=== PATIENT | female | born 1945 | race Caucasian/White ===

== ENCOUNTER 2018-11-14 11:21 | Emergency (ER) | payer MEDICARE, OTHER ==
[~2018-11-14] VITALS: Ht 162.6 cm; Wt 72.6 kg
--- OUTSIDE RECORDS SUMMARY | ~2018-11-14 | XMS | Encounter Summary ---
Demographics + + + | Address | [address] | | | [place] [address] | + + + | Home Phone | | + + + | Preferred Language | Unknown | + + + | Marital Status | Single | + + + | Protestant Affiliation | Unknown | + + + | Race | Unknown | + + + | Ethnic Group | Unknown | + + + Author + + + | Author | Frank Fanvibe | + + + | Organization | [facility] | + + + | Address | Unknown | + + + | Phone | Unavailable | + + + Support + + +---------+ + | Name | Relationship | Address | Phone | + + +---------+ + | Kami Boyce | ECON | Unknown | | | (Jessica) | | | | + + +---------+ + Care Team Providers + +------+ + | Care Sports Commentator Name | Role | Phone | + +------+ + | Sean Daquan Castaneda | PCP | | + +------+ + Encounter Details +--------+ + + + + | Date | Type | Department | Care Team | Description | +--------+ + + + + | 08/16/ | Orders Only | [facility] | Yanni Wall | Cardiomyopathy, | | 2019 | | Cardiology [place] | [address] | ischemic | | | | [address] | [address] | | | | | [facility] [address] | [place] [address] | | | | | [place] [address] | [phone] | | | | | [phone] | | | +--------+ + + + + Social History + + + +--------+------+ | Tobacco Use | Types | Packs/Day | Years | Date | | | | | Used | | + + + +--------+------+ | Former Smoker | Cigarettes | 1 | 40 | | + + + +--------+------+ + +---+---+---+ | Smokeless Tobacco: | | | | | Never Used | | | | + +---+---+---+ + + | Comments: quit 01/01/11 | + + + + +---------+ + | Alcohol Use | Drinks/We | oz/Week | Comments | | | ek | | | + + +---------+ + | Yes | 3-4 | 1.8 - | wine | | | Standard | 2.4 | | | | drinks or | | | | | | | | | | equivalen | | | | | t | | | + + +---------+ + + + + | Sex Assigned at | Date Recorded | | | | + + + | Not on file | | + + + as of this encounter Plan of Treatment +--------+ + + + + | Date | Type | Specialty | Care Team | Description | +--------+ + + + + | 12/04/ | Documentati | Cardiology | | | | 2019 | on Only | | | | +--------+ + + + + | 01/08/ | Documentati | Cardiology | | | | 2019 | on Only | | | | +--------+ + + + + as of this encounter Visit Diagnoses + + | Diagnosis | + + | Cardiomyopathy, ischemic | + + | Other specified forms of chronic ischemic heart disease | + +"
--- OUTSIDE RECORDS SUMMARY | ~2018-11-14 | XMS | Encounter Summary ---
Demographics + + + | Address | [address] | | | [place] [address] | + + + | Home Phone [...] + + + | Author | Frank Viacor | + + + | Organization | [facility] [employer] | + + + | Address [...] Team Providers + +------+ + | Care Senior Marketing Data Analyst Name | Role | Phone | + +------+ + | Daquan Estrada | PCP | | + +------+ + Reason for Visit + + + | Reason | Comments | + + + | Follow-up | 3 month | + + + Encounter Details +--------+---------+ + + + | Date | Type | Department | Care Team | Description | +--------+---------+ + + + | 11/14/ | Office | [facility] | Zeyad Hernandez, | Coronary artery | | 2019 | Visit | Cardiology [place] | [address] | disease involving | | | | [address] | [address], | coronary bypass | | | | [address] | [place] [address] | graft of [place] | | | | [place] [address] | [phone] | heart without angina | | | | [phone] | | pectoris (Primary | | | | | | Dx); Ischemic | | | | | | cardiomyopathy; | | | | | | Chronic combined | | | | | | systolic and | | | | | | diastolic heart | | | | | | failure (HCC); S/P | | | | | | CABG (coronary | | | | | | artery bypass | | | | | | graft); AICD | | | | | | (automatic | | | | | | cardioverter/defibri | | | | | | llator) present | +--------+---------+ + + + Social History + + [...] + + + as of this encounter Last Filed Vital Signs + + + + | Vital Sign | Reading | Time Taken | + + + + | Blood Pressure | 112/64 | 11/14/2018 10:51 AM PDT | + + + + | Pulse | 76 | 11/14/2018 10:51 AM PDT | + + + + | Temperature | - | - | + + + + | Respiratory Rate | - | - | + + + + | Oxygen Saturation | 99% | 11/14/2018 10:51 AM PDT | + + + + | Inhaled Oxygen | - | - | | Concentration | | | + + + + | Weight | 76 kg (167 lb 9.6 | 11/14/2018 10:51 AM PDT | | | oz) | | + + + + | Height | 162.6 cm (5' 4") | 11/14/2018 10:51 AM PDT | + + + + | Body Mass Index | 28.77 | 11/14/2018 10:51 AM PDT | + + + + in this encounter Plan of Treatment +--------+ + + + + | Date | Type | Specialty | Care Team | Description | +--------+ + + + + | 12/04/ | Documentati | Cardiology | | | | 2018 | on Only | | | | +--------+ + + + + | 01/08/ | Documentati | Cardiology | | | | 2018 | on Only | | | | +--------+ + + + + as of this encounter Visit Diagnoses + + | Diagnosis | + + | 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
--- OUTSIDE RECORDS SUMMARY | ~2018-11-14 | XMS | Clinical Summary ---
Demographics + + + | Address | [address] | | | [place] [address] | + + + | Home Phone | | + + + | Preferred Language | Unknown | + + + | Marital Status | Single | + + + | Orthodoxy Affiliation | NRP | + + + | Race | White | + + + | Ethnic Group | Not or | + + + Author + + + | Author | [facility] | + + + | Organization | [facility] | + + + | Address | Unknown | + + + | Phone | Unavailable | + + + Support + + + + + | Name | Relationship | Address | Phone | + + + + + | Herber Greenberg | ECON | Unknown | | + + + + + | Siobhan Boyce | ECON | [address] | | | | | [place] | | | | | [address] | | + + + + + Care Team Providers + +------+ + | Care Gold Tooler Name | Role | Phone | + +------+ + | Gloria Morales MD | PP | Unavailable | + +------+ + Source Comments JOSE is fully live on both EpicCare Ambulatory and EpicCare InPatient[facility] Allergies + + + + + + | Active Allergy | Reactions | Severity | Noted | Comments | | | | | Date | | + + + + + + | Zolpidem Tartrate | Anxiety | | 03/01/20 | Pt does not | | | | | 13 | remember symptoms, | | | | | | but had a "bad | | | | | | reaction" | + + + + + + Medications + + + +---------+------+------+-------+ | Medication | Sig | Dispensed | Refills | Star | End | Statu | | | | | | t | Date | s | | | | | | Date | | | + + + +---------+------+------+-------+ | tiotropium 18 mcg | Inhale 18 mcg once | | 0 | | | Activ | | Inhalation capsule, | daily. | | | | | e | | w/inhalation device | | | | | | | + + + +---------+------+------+-------+ | aspirin 325 mg | Take 325 mg by mouth | | 0 | | | Activ | | Oral tablet | once daily. | | | | | e | + + + +---------+------+------+-------+ | spironolactone 25 | Take 12.5 mg by | | 0 | | | Activ | | mg Oral tablet | mouth once daily. | | | | | e | + + + +---------+------+------+-------+ | ferrous gluconate | Take 325 mg by mouth | | 0 | | | Activ | | 325 mg (36 mg iron) | once daily. | | | | | e | | Oral tablet | | | | | | | + + + +---------+------+------+-------+ | traZODone 50 mg | Take 50 mg by mouth | | 0 | | | Activ | | Oral tablet | once daily at | | | | | e | | | bedtime as needed. | | | | | | + + + +---------+------+------+-------+ | fluticasone 50 | Instill 2 sprays | | 0 | | | Activ | | mcg/actuation Nasal | into each nostril | | | | | e | | [place], | once daily. Shake | | | | | | | SuspensionIndication | well before each use | | | | | | | s: allergies | Indications: | | | | | | | | allergies | | | | | | + + + +---------+------+------+-------+ | telmisartan | Take 1/4 tablet by | | 0 | | | Activ | | (MICARDIS) 20 mg | mouth once daily | | | | | e | | Oral tablet | | | | | | | + + + +---------+------+------+-------+ | Cholecalciferol, | Take 5,000 Units by | | 0 | | | Activ | | Vitamin D3, (VITAMIN | mouth once daily. | | | | | e | | D3) 5,000 unit Oral | | | | | | | | tablet | | | | | | | + + + +---------+------+------+-------+ | levothyroxine 25 | Take 1 & 1/2 tablet | | 0 | | | Activ | | mcg Oral tablet | by mouth once daily | | | | | e | + + + +---------+------+------+-------+ | carvedilol 3.125 | Take 1/2 tablet by | | 0 | | | Activ | | mg Oral tablet | mouth twice daily. | | | | | e | | | Administer with | | | | | | | | food. | | | | | | + + + +---------+------+------+-------+ | clopidogrel 75 mg | Take 1 tablet by | 30 | 11 | 09/1 | | Activ | | Oral tablet | mouth once daily. | tablet | | 4/20 | | e | | | | | | 13 | | | + + + +---------+------+------+-------+ | furosemide 20 mg | Take 1 tablet by | 30 | 3 | 09/1 | | Activ | | Oral tablet | mouth once daily. | tablet | | 4/20 | | e | | | | | | 13 | | | + + + +---------+------+------+-------+ | nitroglycerin 0.4 | Place 1 tablet under | 25 | 1 | / | | Activ | | mg Sublingual | the tongue every | tablet | | /20 | | e | | tablet, sublingual | five minutes as | | | 13 | | | | | needed for chest | | | | | | | | pain. Do not crush | | | | | | | | and allow to | | | | | | | | dissolve. | | | | | | | | Administer every 5 | | | | | | | | minutes for a | | | | | | | | maximum of 3 doses | | | | | | | | in 15 minutes. | | | | | | + + + +---------+------+------+-------+ | atorvastatin 80 mg | Take 1 tablet by | 30 | 3 | 02/17 | | Activ | | Oral tablet | mouth once daily. | tablet | | 20 | | e | | | | | | 13 | | | + + + +---------+------+------+-------+ Active Problems + + + | Problem | Noted Date | + + + | NSTEMI (non-ST elevated myocardial infarction) | 03/01/2013 | + + + | Acute systolic heart failure | 03/01/2013 | + + + | Ischemic cardiomyopathy | 03/01/2013 | + + + | Unstable angina | 02/27/2013 | + + + Social History + + + +--------+ + | Tobacco Use | Types | Packs/Day | Years | Date | | | | | Used | | + + + +--------+ + | Former Smoker | Cigarettes | 1 | | Quit: 12/27/2010 | + + + +--------+ + + +------+---+---+ | Smokeless Tobacco: | Chew | | | | Current User | | | | + +------+---+---+ + + +---------+ + | Alcohol Use | Drinks/Week | oz/Week | Comments | + + +---------+ + | Yes | 1 Glasses of wine | 0.5 | not reglarly - with | | | | | company | + + +---------+ + + + + | Sex Assigned at | Date Recorded | | | | + + + | Not on file | | + + + + + + + | Job Start Date | Occupation | Industry | + + + + | Not on file | Not on file | Not on file | + + + + + + + + | Travel History | Travel Start | Travel End | + + + + + + | No recent travel history available. | + + Last Filed Vital Signs + + + + + | Vital Sign | Reading | Time Taken | Comments | + + + + + | Blood Pressure | 101/60 | 03/02/2013 7:40 AM | | | | | PDT | | + + + + + | Pulse | 74 | 03/02/2013 7:40 AM | | | | | PDT | | + + + + + | Temperature | 36.4 C (97.5 F) | 03/02/2013 7:40 AM | | | | | PDT | | + + + + + | Respiratory Rate | 16 | 03/02/2013 7:40 AM | | | | | PDT | | + + + + + | Oxygen Saturation | 99% | 03/02/2013 7:40 AM | | | | | PDT | | + + + + + | Inhaled Oxygen | - | - | | | Concentration | | | | + + + + + | Weight | 69.4 kg (153 lb) | 03/02/2013 6:52 AM | | | | | PDT | | + + + + + | Height | 162.6 cm (5' 4") | 02/27/2013 5:03 PM | | | | | PDT | | + + + + + | Body Mass Index | 26.26 | 02/27/2013 5:03 PM | | | | | PDT | | + + + + + Plan of Treatment + + + + + | Health Maintenance | Due Date | Last Done | Comments | + + + + + | Pneumococcal (Adult) | | | | | (1 of 2 - PCV13) | 1 | | | + + + + + | Influenza (Flu) | | | | | vaccination (Season | 9 | | | | Ended) | | | | + + + + + Results Not on filefrom Last 3 Months Insurance + +--------+ +--------+ + +--------+ | Payer | Benefi | Subscriber | Effect | Phone | Address | Type | | | t Plan | ID | stephie | | | | | | / | | Dates | | | | | | Group | | | | | | + +--------+ +--------+ + +--------+ | MEDICARE | MEDICA | xxxxxxxxxx | 10/18/19 | [phone] | [address] | Medica | | | RE A & | | 11-Pre | [phone] | | | [address] | | sent | | [place], [place] | | | | | | | | [address] | | + +--------+ +--------+ + +--------+ | COMMERCIAL | INDIVI | xxxxxxxxx | 10/18/19 | | | Indemn | | INDIVIDUAL | DUAL | | 11-Pre | | | ity | | | COMMER | | sent | | | | | | CIAL | | | | | | + +--------+ +--------+ + +--------+ + +--------+ +--------+ + + | Guarantor Name | Accoun | Relation to | Date | Phone | Billing Address | | | t Type | Patient | of | | | | | | | | | | + +--------+ +--------+ + + | Jennifer Boyce | Person | Self [birth year] | [address] | | | al/Fam | | 1946 | [phone] | [place] | | | [place] | | | [address] (Home) | [phone] | + +--------+ +--------+ + + Advance Directives + + + + + | Code Status | Date | Date | Comments | | | Activated | Inactivated | | + + + + + | Full Code | 02/27/2013 | 03/02/2013 | | | | 4:17 PM | 5:21 PM | | + + + + +
--- OUTSIDE RECORDS SUMMARY | ~2018-11-14 | XMS | Clinical Summary ---
Demographics + + + | Address | [address] | | | [place] [address] | + + + | Home Phone | | + + + | Preferred Language | Unknown | + + + | Marital Status | | + + + | Episcopalian Affiliation | Unknown | + + + | Race | Unknown | + + + | Ethnic Group | Unknown | + + + Author + + + | Author | [facility] | | | and [place] | + + + | Organization | [facility] | | | and [place] | + + + | Address | [...] Team Providers + +------+ + | Care Apartment Leasing Agent Name | Role | Phone | + +------+ + | Krysten Isbell PA-C | PP | | + +------+ + Allergies No Known Allergies Medications + + + +---------+------+------+-------+ | Medication | Sig | Dispensed | Refills | Star | End | Statu | | | | | | t | Date | s | | | | | | Date | | | + + + +---------+------+------+-------+ | tiotropium | Inhale 18 mcg into | | 0 | | | Activ | | (SPIRIVA HANDRADHAALER) | the lungs Daily. | | | | | e | | 18 mcg inhalation | | | | | | | | capsule | | | | | | | + + + +---------+------+------+-------+ | potassium chloride | Take 20 mEq by mouth | | 0 | | | Activ | | (K-DUR) 20 mEq | Daily. | | | | | e | | tablet | | | | | | | + + + +---------+------+------+-------+ | levothyroxine | Take 25 mcg by mouth | | 0 | | | Activ | | (SYNTHROID, | Daily. | | | | | e | | LEVOTHROID) 25 mcg | | | | | | | | tablet | | | | | | | + + + +---------+------+------+-------+ | furosemide (LASIX) | Take 20 mg by mouth | | 0 | | | Activ | | 20 mg tablet | Daily. | | | | | e | + + + +---------+------+------+-------+ | ergocalciferol | Take 50,000 Units by | | 0 | | | Activ | | (VITAMIN D-2) 50,000 | mouth Once a week. | | | | | e | | units capsule | | | | | | | + + + +---------+------+------+-------+ | cyanocobalamin | Take 1,000 mcg by | | 0 | | | Activ | | (VITAMIN B-12) 1000 | mouth Daily. | | | | | e | | MCG tablet | | | | | | | + + + +---------+------+------+-------+ | aspirin 325 mg | Take 325 mg by mouth | | 0 | | | Activ | | tablet | Daily. | | | | | e | + + + +---------+------+------+-------+ | traZODone | Take 50 mg by mouth | | 0 | | | Activ | | (DESYREL) 50 mg | nightly. | | | | | e | | tablet | | | | | | | + + + +---------+------+------+-------+ | cholecalciferol | Take 2,000 Units by | | 0 | | | Activ | | (VITAMIN D-3) 2000 | mouth Daily. | | | | | e | | UNITS TABS | | | | | | | + + + +---------+------+------+-------+ | cyanocobalamin | Take 500 mcg by | | 0 | | | Activ | | (VITAMIN B-12) 500 | mouth 2 times daily. | | | | | e | | mcg tablet | | | | | | | + + + +---------+------+------+-------+ | carvedilol (COREG) | Take 1.5625 mg by | | 0 | | | Activ | | 3.125 mg tablet | mouth 2 times daily | | | | | e | | | (with breakfast & | | | | | | | | dinner). | | | | | | + + + +---------+------+------+-------+ | irbesartan | Take 37.5 mg by | | 0 | | | Activ | | (AVAPRO) 75 mg | mouth Daily. | | | | | e | | tablet | | | | | | | + + + +---------+------+------+-------+ | fluticasone | 2 sprays by Nasal | | 0 | | | Activ | | (FLONASE) 50 | route Daily. | | | | | e | | mcg/nasal spray | | | | | | | + + + +---------+------+------+-------+ | simvastatin | Take 20 mg by mouth | | 0 | | | Activ | | (ZOCOR) 20 mg tablet | nightly. | | | | | e | + + + +---------+------+------+-------+ Active Problems No known active problems Family History + + +------+ + | Medical History | Relation | Name | Comments | + + +------+ + | Hypertension | Brother | | | + + +------+ + | Pulmonary embolism | Brother | | | + + +------+ + | Other (see comment) | Daughter | | benign tumors | + + +------+ + | Arthritis | Father | | | + + +------+ + | Colon cancer | Father | | | + + +------+ + | Gout | Father | | | + + +------+ + | Heart disease | Father | | | + + +------+ + | Hypertension | Father | | | + + +------+ + | Prostate cancer | Father | | | + + +------+ + | Lung cancer | Maternal | | | | | Aunt | | | + + +------+ + | Heart attack | Maternal | | | | | Grandfath | | | | | er | | | + + +------+ + | Heart disease | Maternal | | | | | Grandmoth | | | | | er | | | + + +------+ + | Heart disease | Maternal | | | | | Uncle | | | + + +------+ + | Arthritis | Mother | | | + + +------+ + | Breast cancer | Mother | | | + + +------+ + | Hypertension | Mother | | | + + +------+ + | Heart disease | Paternal | | | | | Grandmoth | | | | | er | | | + + +------+ + | Stroke | Paternal | | | | | Uncle | | | + + +------+ + | Atrial fibrillation | Sister | | | + + +------+ + | Heart disease | Sister | | | + + +------+ + | Hypertension | Sister | | | + + +------+ + + +------+ + + | Relation | Name | Status | Comments | + +------+ + + | Brother | | Alive | | + +------+ + + | Brother | | | | + +------+ + + | Child | | Alive | | + +------+ + + | Daughter | | Alive | | + +------+ + + | Daughter | | | | + +------+ + + | Father | | | COLON CANCER | | | | (Age | | | | | 94) | | + +------+ + + | Maternal Aunt | | | | | | | (Age | | | | | 85) | | + +------+ + + | Maternal Aunt | | | | + +------+ + + | Maternal Grandfather | | | | | | | (Age | | | | | 89) | | + +------+ + + | Maternal Grandmother | | | | | | | (Age | | | | | 87) | | + +------+ + + | Maternal Uncle | | | | | | | (Age | | | | | 85) | | + +------+ + + | Maternal Uncle | | | | + +------+ + + | Mother | | | CANCER | | | | (Age | | | | | 88) | | + +------+ + + | Paternal Grandfather | | | COMPLICATIONS FROM SURGERY | | | | (Age | | | | | 46) | | + +------+ + + | Paternal Grandmother | | | | | | | (Age | | | | | 95) | | + +------+ + + | Paternal Uncle | | | | | | | (Age | | | | | 88) | | + +------+ + + | Paternal Uncle | | | | + +------+ + + | Sister | | Alive | | + +------+ + + | Sister | | | | + +------+ + + Social History + + + +--------+ + | Tobacco Use | Types | Packs/Day | Years | Date | | | | | Used | | + + + +--------+ + | Former Smoker | Cigarettes | 1 | 40 | 08/24/1970 - | | | | | | 08/24/2010 | + + + +--------+ + + +---+---+---+ | Smokeless Tobacco: | | | | | Never Used | | | | + +---+---+---+ + + +---------+ + | Alcohol Use | Drinks/We | oz/Week | Comments | | | ek | | | + + +---------+ + | Yes | 0 | 0.0 | SOCIAL | | | Standard | | | | | drinks or | [...] + + + | Blood Pressure | 101/55 | 11/24/20151353 PDT | + + + + | Pulse | 67 | 11/24/20151353 PDT | + + + + | Temperature | - | - | + + + + | Respiratory Rate | 18 | 11/24/20151353 PDT | + + + + | Oxygen Saturation | - | - | + + + + | Inhaled Oxygen | - | - | | Concentration | | | + + + + | Weight | 68.9 kg (152 lb) | 11/24/20151353 PDT | + + + + | Height | 162.6 cm (5' 4") | 11/24/2015 1354 PDT | + + + + | Body Mass Index | 26.09 | 11/24/2015 1354 PDT | + + + + Plan of Treatment + + + + + | Health Maintenance | Due Date | Last Done | Comments | + + + + + | Vaccine: | | | | | Dtap/Tdap/Td (1 - | 5 | | | | Tdap) | | | | + + + + + | Vaccine: Zoster (1 | | | | | of 2) | 6 | | | + + + + + | Vaccine: | | | | | Pneumococcal 65+ | 1 | | | | Low/Medium Risk (1 | | | | | of 2 - PCV13) | | | | + + + + + | Vaccine: Influenza | | | | | (Season Ended) | 9 | | | + + + + + Results Not on filefrom Last 3 Months Insurance + +--------+ +--------+ +---------+--------+ | Payer | Benefi | Subscriber | Effect | Phone | Address | Type | | | t Plan | ID | stephie | | | | | | / | | Dates | | | | | | Group | | | | | | + +--------+ +--------+ +---------+--------+ | MEDICARE | MEDICA | [id number] | 10/18/19 | [phone] | | Medica | | | RE | | 11-Pre | 5 | | re | | | PART A | | sent | | | | | | AND B | | | | | | + +--------+ +--------+ +---------+--------+ | [employer] | BANKER | [id number] | | [phone] | | Indemn | | | S LIFE | | 016-Pr | 4 | | ity | | | INS | | esent | | | | + +--------+ +--------+ +---------+--------+ | [facility] | IHS | [id number] | 06/19/19 | | | Indemn | | SERVICE | YELLOW | | 02-Pre | | | ity | | | [place]WK | | sent | | | | + +--------+ +--------+ +---------+--------+ + +--------+ +--------+ + + | Guarantor Name | Accoun | Relation to | Date | Phone | Billing Address | | | t Type | Patient | of | | | | | | | | | | + +--------+ +--------+ + + | Jennifer Boyce | Person | Self [birth year] | [address] | | | al/Matt | | 1946 | [phone] | [place] | | | [place] | | | [address] ([place]) | [address] | + +--------+ +--------+ + + Advance Directives Patient has advance care planning documents on file. For more information, please contact:[facility] [place] [address]
--- OUTSIDE RECORDS SUMMARY | ~2018-11-14 | XMS | Encounter Summary ---
Demographics + + + | Address | [address] | | | [place] [address] | + + + | Home Phone | | + + + | Preferred Language | Unknown | + + + | Marital Status | Single | + + + | Yazidi Affiliation | NRP | + + + | Race | White | + + + | Ethnic Group | Not or | + + + Author + + + | Author | [facility] | + + + | Organization | [facility] | + + + | Address | Unknown | + + + | Phone | Unavailable | + + + Support + + + + + | Name | Relationship | Address | Phone | + + + + + | Herber Greenberg | ECON | Unknown | | + + + + + | Siobhan Boyce | ECON | [address] | | | | | [place] | | | | | [address] | | + + + + + Care Team Providers + +------+ + | Care Revenue Stamp Cutter Name | Role | Phone | + +------+ + | Gloria Morales MD | PCP | Unavailable | + +------+ + Encounter Details +--------+ + + + + | Date | Type | Department | Care Team | Description | +--------+ + + + + | 03/02/ | Pharmacy | Specialty Pharmacy | | | | 2012 | Visit | Services [address] | | | | [address] | | | | | | [place] | | | | | | [address] | | | | | | [phone] | | | +--------+ + + + + Social History + +-------+ +--------+------+ | Tobacco Use | Types | Packs/Day | Years | Date | | | | | Used | | + +-------+ +--------+------+ | Never Assessed | | | | | + +-------+ +--------+------+ + + + | Sex Assigned at [...] recent travel history available. | + + documented as of this encounter Plan of Treatment Not on filedocumented as of this encounter Visit Diagnoses Not on filedocumented in this encounter"
--- OUTSIDE RECORDS SUMMARY | ~2018-11-14 | XMS | Clinical Summary ---
Demographics + + + | Address | [address] | | | [place] [address] | + + + | Home Phone | | + + + | Preferred Language | Unknown | + + + | Marital Status | Single | + + + | Worship Affiliation | NRP | + + + [...] [place] | | | | | [address] | | + + + + + Care Team Providers + +------+ + | Care Sand Worker Name | Role | Phone | + +------+ + | Gloria Morales MD | PP | Unavailable | + +------+ + Source Comments [facility] is fully live on both EpicCare Ambulatory and EpicCare InPatient.[facility] Allergies + + + + + + [...] | | | | e | | Whick, | once daily. Shake | | | [...] | B | | sent | | [place], [place] | | | | | | | | [address] | | + +--------+ +--------+ + +--------+ [...] claudia | | | 5 (Home) | [address] | + +--------+ +--------+ + + Advance [...]
--- OUTSIDE RECORDS SUMMARY | ~2018-11-14 | XMS | Encounter Summary ---
Demographics + + + | Address | [address] | | | [place] [address] | + + + | Home Phone | | + + + | Preferred Language | Unknown | + + + | Marital Status | Single | + + + | Shinto Affiliation | Unknown | + + + | Race | Unknown | + + + | Ethnic Group | Unknown | + + + Author + + + | Author | [employer] | + + + | Organization | [facility] | + + + | Address [...] Team Providers + +------+ + | Care Back Tufter Name | Role | Phone | + +------+ + | Sean Daquan Castaneda | PCP | | + +------+ + Encounter Details +--------+ + + + + | Date | Type | Department | Care Team | Description | +--------+ + + + + | 10/10/ | Telephone | [facility] | Amita Spencer MA | | | 2018 | | Card[facility] | | | | | | [address] | | | | | | [facility] [address] | | | | | | [place] [address] | | | | | | [phone] | | | +--------+ + + + [...] + as of this encounter Visit Diagnoses Not on filein this encounter"
--- OUTSIDE RECORDS SUMMARY | ~2018-11-14 | XMS | Encounter Summary ---
Demographics + + + | Address | [address] | | | [place] [address] | + + + | Home Phone | | + + + | Preferred Language | Unknown | + + + | Marital Status | Single | + + + | Hinduism Affiliation | NRP | + + + | Race | White | + + + | Ethnic Group | Not or | + + + Author + + + | Organization | Unknown | + + + | Address | Unknown | + + + | Phone | Unavailable | + + + Support + + + + + | Name | Relationship | Address | Phone | + + + + + | Herber Greenberg | ECON | Unknown | | + + + + + | Sibohan Boyce | ECON | [address] | | | | | [place] | | | | | [address] | | + + + + + Care Team Providers + +------+ + | Care Interior Design Professor Name | Role | Phone | + +------+ + PCP | Unavailable | + +------+ + Encounter Details +--------+ + + + + | Date | Type | Department | Care Team | Description | +--------+ + + + + | 05/21/ | Procedure - | | Evaluation, Cei | [facility] | | 2000 | | | Ultrasound | | | | Transcribed | | | | +--------+ + + [...] + + documented as of this encounter Progress Notes Interface, Machine Assembler For Puller Over In - 03/13/2006 2:27 AM PDT ULTRASOUND EVAL UATION REPORT PATIENT: MILEY GREENBERG DATE: May 17, 2001 REFERRING MD: DR. DIEGO EYE: Right eye. HISTORY: This adult female experienced a recent hemorrhagic posterior vitreous detachment in the right eye. She has a history of inflammation and hemorrhage since January this year. She has been on steroids. ECHOGRAPHY: The B scan reveals a moderately reflective posterior hyaloid consistent with hemorrhage and/or inflammatory precipitates. There is a Miles ring indicating a posterior vitreous detachment. There is a moderately reflective echo along the hyaloid face, superiorly, that could indicate a small operculum. The surrounding retina remains intact. A second point of vitreous attachment is found along the 6 o'clock meridian. The retina there also is intact. Superiorly, there is a localized area of choroidal calcium. There is debris in both the vitreous and the sub-vitreal space consistent with hemorrhage and/or inflammation. IMPRESSION: 1. Posterior vitreous detachment. 2. Possible small superior retinal operculum. 3. Vitreous hemorrhage and/or inflammation. Kevin Pierce M.D. and Elias Boucher, Ophthalmic Echographer [place] / [id number] / [id number] / [id number] / Tdocumented in this encounter Plan of Treatment Not on filedocumented as of this encounter Procedures + +--------+ + + + | Procedure Name | Priori | Date/Time | Associated Diagnosis | Comments | | | ty | | | | + +--------+ + + + | [facility] | | 05/21/2001 | | Results for this | | | | | | procedure are in the | | | | | | results section. | + +--------+ + + + documented in this encounter Results [facility] (05/21/2001) + + | Transcriptions | + + | Interface, Machine Assembler For Puller Over In - 03/13/2006 2:27 AM PDT | | ULTRASOUND EVALUATION REPORTPATIENT: ÁLVARO GREENBERG: | | May 17, 2001FELICIA MONTELONGO: DR. DIEGOMEDICAL RECORD #: | | [id number]: Right eye.HISTORY:This adult female experienced a recent | | hemorrhagic posterior vitreousdetachment in the right eye. She has a history of | | inflammation andhemorrhage since January this year. She has been on | | steroids.ECHOGRAPHY:The B scan reveals a moderately reflective posterior hyaloid | | consistentwith hemorrhage and/or inflammatory precipitates. There is a Miles | | ringindicating a posterior vitreous detachment.There is a moderately reflective echo | | along the hyaloid face, superiorly,that could indicate a small operculum. The | | surrounding retina remainsintact. A second point of vitreous attachment is found along | | the 6 o'clockmeridian. The retina there also is intact.Superiorly, there is a localized | | area of choroidal calcium. There isdebris in both the vitreous and the sub-vitreal | | space consistent withhemorrhage and/or inflammation.IMPRESSION:1. Posterior vitreous | | detachment.2. Possible small superior retinal operculum.3. Vitreous hemorrhage | | and/or inflammation.Kevin Pierce M.D. andElias Boucher, Ophthalmic EchographerME / | | [id number] / [id number] / [id number] / T: 05/22/2001 | |ECHOGRAPHY: | | | |The B scan reveals a moderately reflective posterior hyaloid consistent | |with hemorrhage and/or inflammatory precipitates. There is a Miles ring | |indicating a posterior vitreous detachment. | | | |There is a moderately reflective echo along the hyaloid face, superiorly, | |that could indicate a small operculum. The surrounding retina remains | |intact. A second point of vitreous attachment is found along the 6 o'clock | |meridian. The retina there also is intact. | | | |Superiorly, there is a localized area of choroidal calcium. There is | |debris in both the vitreous and the sub-vitreal space consistent with | |hemorrhage and/or inflammation. | | | |IMPRESSION: | | | |1. Posterior vitreous detachment. | |2. Possible small superior retinal operculum. | |3. Vitreous hemorrhage and/or inflammation. | | | | | | | | | |Kevin Pierce M.D. and | |Elias Boucher, Ophthalmic Echographer | | | |ME / HS | |[id number] / [id number] / [id number] / | | | | | + + documented in this encounter Visit Diagnoses Not on filedocumented in this encounter"
--- OUTSIDE RECORDS SUMMARY | ~2018-11-14 | XMS | Encounter Summary ---
Demographics + + + | Address | [address] | | | [place] [address] | + + + | Home Phone | | + + + | Preferred Language | Unknown | + + + | Marital Status | Single | + + + | Sabianist Affiliation | Unknown | + + + | Race | Unknown | + + + | Ethnic Group | Unknown | + + + Author + + + | Author | [employer] | + + + | Organization | [facility] [employer] [facility] | + + + | Address [...] Team Providers + +------+ + | Care Bung Dropper Name | Role | Phone | + [...] | | | | | | [address] | | | | | | [facility] [address] | | | | | | [place] [address] | | | | | | [phone] | | | +--------+ + + + [...]
--- OUTSIDE RECORDS SUMMARY | ~2018-11-14 | XMS | Encounter Summary ---
Demographics + + + | Address | [address] | | | [place] [address] | + + + | Home Phone | | + + + | Preferred Language | Unknown | + + + | Marital Status | Single | + + + | Temple Affiliation | NRP | + + + | Race | White | + + + | Ethnic Group | Not or | + + + Author + + + | Author | [facility] | + + + | Organization | [facility] | + + + | Address | [...] [place] | | | | | [address] | | + + + + + Care Team Providers + +------+ + | Care Stained Glass Glazier Helper Name | Role | Phone | + +------+ + | Gloria Morales MD | PCP | Unavailable | + +------+ + Encounter Details +--------+ + + + + | Date | Type | Department | Care Team | Description | +--------+ + + + + | 02/28/ | Results | Stress | Other, Faculty | | | 2012 | Only | Echocardiography | [phone] | | | | | [address] | | | | | | [facility] | | | | | | Mailcode: OP12B | | | | | | Outpatient Clinic | | | | | | [facility], | | | | | | [place] [address] | | | | | | [phone] | | | +--------+ + + + [...] | + +--------+ + + + | EJECTION FRACTION | Routin | 02/28/2013 | | Results for this | | | e | 12:31 PM | | procedure are in the | | | | PDT | | results section. | + +--------+ + + + documented in this encounter Results EJECTION FRACTION (02/28/2013 12:31 PM PDT) + + + + + + | Component | Value | Ref Range | Performed | Pathologist | | | | | At | Signature | + + + + + + | EJECTION | < 20%Comment: EF | | [facility] | | | FRACTION | Recorded from | | OF | | | | Transthoracic | | CARDIOLOGY | | | | Echocardiogram | | | | + + + + + + | BIPLANE, EF | 27.7 | | [facility] | | | | | | OF | | | | | | CARDIOLOGY | | + + + + + + + + | Specimen | + + | | + + + + + + + | Performing | Address | City/State/Zipcode | Phone Number | | Organization | | | | + + + + + | [facility] | [address] | [place], [place] | | | CARDIOLOGY | [address] | [address] | | + + + + + documented in this encounter Visit Diagnoses Not on filedocumented in this encounter"
--- OUTSIDE RECORDS SUMMARY | ~2018-11-14 | XMS | Encounter Summary ---
Demographics + + + | Address | [address] | | | [place] [address] | + + + | Home Phone | | + + + | Preferred Language | Unknown | + + + | Marital Status | Single | + + + | Jewish Affiliation | NRP | + + + [...] [place] | | | | | [address] | | + + + + + Care Team Providers + +------+ + | Care Materials Inspector Name | Role | Phone | + [...] as of this encounter Progress Notes Interface, Design Engineer Agricultural Equipment In - 03/13/2006 2:27 AM PDT ULTRASOUND [...] Pierce M.D. and Elias Boucher, Ophthalmic Echographer [place] / [id number] / [id number] / [id number] / Tdocumented in this encounter Plan of [...] | Transcriptions | + + | Interface, Design Engineer Agricultural Equipment In - 03/13/2006 2:27 AM PDT | | ULTRASOUND EVALUATION REPORTPATIENT: ÁLVARO GREENBERG: | | May 17, 2001FELICIA MONTELONGO: DR. DIEGOMEDICAL RECORD #: | | [id number]: Right eye.HISTORY:This adult female experienced a recent [...] andElias Boucher, Ophthalmic EchographerME / | | [id number] / [id number] / [id number] / T: 05/22/2001 | |ECHOGRAPHY: | | [...] | | | |ME / HS | |[id number] / [id number] / [id number] / | | | | | + + documented in this encounter Visit Diagnoses Not on filedocumented in this encounter"
--- OUTSIDE RECORDS SUMMARY | ~2018-11-14 | XMS | Encounter Summary ---
Demographics + + + | Address | [address] | | | [place] [address] | + + + | Home Phone | | + + + | Preferred Language | Unknown | + + + | Marital Status | Single | + + + | Denominational Affiliation | Unknown | + + + | Race | Unknown | + + + | Ethnic Group | Unknown | + + + Author + + + | Author | [employer] | + + + | Organization | [facility] [facility] | + + + | Address [...] Team Providers + +------+ + | Care Jackaroo Name | Role | Phone | + [...] Hu | | | | | [facility] [address] | [place] [address] | | | | | [place] [address] | [phone] | | | | | [phone] | | | +--------+ + + + [...]
--- OUTSIDE RECORDS SUMMARY | ~2018-11-14 | XMS | Encounter Summary ---
Demographics + + + | Address | [address] | | | [place] [address] | + + + | Home Phone | | + + + | Preferred Language | Unknown | + + + | Marital Status | Single | + + + | Jain Affiliation | Unknown | + + + | Race | Unknown | + + + | Ethnic Group | Unknown | + + + Author + + + | Author | [employer] | + + + | Organization | [facility] [employer] [facility] | + + + | Address [...] Team Providers + +------+ + | Care Assistant Branch Operations Manager Name | Role | Phone | + +------+ + | Sean Daquan Castaneda | PCP | | + +------+ + Reason for Visit + + + | Reason | Comments | + + + | Automatic | Remote | | Implantable | | | Cardioverter | | | Defibrillator | | + + + Encounter Details +--------+ + + + + | Date | Type | Department | Care Team | Description | +--------+ + + + + | 10/30/ | Documentati | [facility] | Fer Martinez | Automatic | | 2019 | on Only | Cardiology [facility] | | Implantable | | | | [address] | | Cardioverter | | | | [place], [place] | | Defibrillator | | | | [address] | | (Remote ) | | | | [phone] | | | +--------+ + + + [...] + | Diagnosis | + + | Ischemic cardiomyopathy - Primary | + + | Other specified forms of chronic ischemic heart disease | + + | Chronic combined systolic and diastolic heart failure (HCC) | + + | Chronic combined systolic and diastolic heart failure | + +"
--- OUTSIDE RECORDS SUMMARY | ~2018-11-14 | XMS | Encounter Summary ---
Demographics + + + | Address | [address] | | | [place] [address] | + + + | Home Phone | | + + + | Preferred Language | Unknown | + + + | Marital Status | Single | + + + | Synagogue Affiliation | NRP | + + + | Race | White | + + + | Ethnic Group | Not or | + + + Author + + + | Author | [facility] | + + + | Organization | [facility] | + + + | Address | Unknown | + + + | Phone | Unavailable | + + + Support + + + + + | Name | Relationship | Address | Phone | + + + + + | Herber Greenberg | ECON | Unknown | | + + + + + | Siobhan Boyce | ECON | [address] | | | | | [place] | | | | | [address] | | + + + + + Care Team Providers + +------+ + | Care Third Hand Name | Role | Phone | + +------+ + | Gloria Morales MD | PCP | Unavailable | + +------+ + Reason for Referral Consultation (Routine) +--------+--------+ + + + + | Status | Reason | Specialty | Diagnoses / | Referred By | Referred To | | | | | Procedures | Contact | Contact | +--------+--------+ + + + + | Closed | | Physical | Procedures | Marva | [facility] | | | | Therapy | CONSULT TO | [place] [facility], | [facility] | | | | | CARDIAC | MD [address] | [address] | | | | | [facility] | Pr[address] Sanchez | Kae | | | | | | Eleanor [place]on | Mailcode: | | | | | | [place], [place] | [address] | | | | | | [address] | for Health | | | | | | Phone: | and Healing | | | | | | [phone] | [place], [place] | | | | | | Fax: | [address] | | | | | | [phone] | Phone: | | | | | | | [phone] | | | | | | | Fax: | | | | | | | [phone] | +--------+--------+ + + + + Consultation (Routine) +--------+--------+ + + + + | Status | Reason | Specialty | Diagnoses / | Referred By | Referred To | | | | | Procedures | Contact | Contact | +--------+--------+ + + + + | Closed | | Physical | Procedures | Marva, | [facility] | | | | Therapy | CONSULT TO | Gaby Baxter, | [facility] | | | | | CARDIAC | MD [address] | [address] | | | | | [facility] | [address] | Ave | | | | | | Eleanor Erickson | Mailcode: | | | | | | [place], [place] | [address] | | | | | | [address] | for Health | | | | | | Phone: | and Healing | | | | | | [phone] | [place], [place] | | | | | | Fax: | [address] | | | | | | [phone] | Phone: | | | | | | | [phone] | | | | | | | Fax: | | | | | | | [phone] | +--------+--------+ + + + + Diagnostic Testing (Routine) +--------+--------+ + + + + | Status | Reason | Specialty | Diagnoses / | Referred By | Referred To | | | | | Procedures | Contact | Contact | +--------+--------+ + + + + | Closed | | Cardiology | Procedures | Xiomara, | Car Echo | | | | | | Joanie Gambino, | Sjh [address] | | | | | TRANSTHORACI | PA-C [address] | [address] | | | | | [address] | [address] | [address] | | | | | ECHOCARDIOGR | [place] | Mailcode: | | | | | AM, ADULT | Rd | [id number] | | | | | | [place], [place] | [address] | | | | | | [address] | Building | | | | | | Phone: | [place], [place] | | | | | | [phone] | [address] | | | | | | Fax: | Phone: | | | | | | [phone] | [phone] | +--------+--------+ + + + + Diagnostic Testing (Routine) +--------+--------+ + + + + | Status | Reason | Specialty | Diagnoses / | Referred By | Referred To | | | | | Procedures | Contact | Contact | +--------+--------+ + + + + | Closed | | Cardiology | Procedures | Morgan, | Car Echo | | | | | | Joanie Gambino, | [facility] [address] | | | | | TRANSTHORACI | PA-C [address] | [address] | | | | | C | [address] | [facility] | | | | | ECHOCARDIOGR | [address] | Mailcode: | | | | | AM, ADULT | Rd | [id number] | | | | | | [place] | [address] | | | | | | [address] | Building | | | | | | Phone: | [place], [place] | | | | | | [phone] | [address] | | | | | | Fax: | Phone: | | | | | | [phone] | [phone] | +--------+--------+ + + + + Reason for Visit + + + | Reason | Comments | + + + | Unstable angina | | + + + AUTH/CERT +--------+--------+ + + + + | Status | Reason | Specialty | Diagnoses / | Referred By | Referred To | | | | | Procedures | Contact | Contact | +--------+--------+ + + + + | Closed | | | | | | +--------+--------+ + + + + Encounter Details +--------+ + + + + | Date | Type | Department | Care Team | Description | +--------+ + + + + | 02/27/ | Hospital | [facility] [address] | Dimitri Valdez | | | 2012 - | Encounter | [address] | MD Anali [address] | | | | | [id number] [facility] | [place], [place] | | | 03/02/ | | [facility], | [address] | | | 2012 | | [place] [facility] | [phone] | | | | | [phone] | | | +--------+ + + + [...] + + documented as of this encounter Last Filed Vital [...] + + + documented in this encounter Discharge Summaries Dimitri Valdez MD - 03/01/2013 1:45 PM PDT Cardiology Attending Discharge Note I have seen and examined Ms. Boyce and discussed the patient's management with the PA. I re viewed the PA note above and agree with the documented findings and plan of care. She was a dmitted for NSTEMI and HF exacerbation. She was diuresed and cath showed no evidence for pa tent GENNA SVG and critical [place] mid LCx stenosis which was treated with KASIA. Echo shows ve ry severe LV dysfunction with global pattern. She is being discharged today. Dimitri Valdez MD chemical compounder helper [facility] [place] DEPARTMENT: Place of Service: [address] [place] [address] Date of Service: 03/02/2013 CSN: [id number] Suggested Modifiers: GC-Resident Hollie Pichardo ACNP - 03/01/2013 1:45 PM PDTFormatting of this note might be different from the [facility]. INPATIENT CARDIOLOGY DISCHARGE SUMMARY PCP: Gloria Morales MD Referring Physician: Tiffanie Murphy MD Primary/Outpatient Instructional Technology Coach: Aneta Marcano MD Inpatient Attending Physician: Dimitri Valdez MD Author/Discharging Provider: DANNIE Escalera Admission Date: 02/27/2013 Discharge Date: 03/02/2013 Discharge Diagnosis: 1. CAD/NSTEMI 2. Acute on chronic systolic heart failure 3. Ischemic cardiomyopathy 4. COPD 5. Hypothyroidism 6. Hyperlipidemia Reason For Admission: NSTEMI Hospital Course: Jennifer Boyce is a 67 year old female with history of CAD status post 4 ves indigo CABG in 12/2010, ischemic CM EF 30-35% (2011) status post ICD placement in 10/2011, histor y of tobacco use, hypertension, hyperlipidemia, and COPD who presented to [place] [facility] in [place], [place] with worsening chest pain and nausea ruled in for NSTEMI and admitted to [facility] for further management. During her stay the following issues were addressed: 1. CAD/NSTEMI: History of significant CAD with diffuse 4v disease s/p CABG (OLSON to LAD, SV G to PDA, SVG to LpLA, SVG to marginal) in 2010. Chest pain with T-wave inversion in septal lateral leads with troponin elevation at outside hospital to 2.61 consistent with NSTEMI. EC G at [facility] revealed decreased r-wave voltage in inferior leads when compared with outside hos pital. Troponin positive and peaked at 11, downtrended to 4 on 03/01. Initially with dyspnic episodes likely representing anginal pain. Was anticoagulated with heparin and Integrilin in fusion and underwent coronary angiogram via right femoral artery on 02/28 which revealed: Pat ent OLSON to LAD, Patent SVG to RCA, Patent SVG to OM with competitive flow, Long 95% mid lef t circumflex stenosis resolved with placement of 2.5 x 33 mm Xience KASIA to mid LCx. Loaded w ith 600 mg Plavix post procedure. Remained chest pain and dypnea free after stent placement. Telemetry without acute events although had episodes of AIVR prior to angiogram. Medical management to include: -- Antiplatelet: Continue ASA 325 mg daily x 1 month then decrease to 81 daily. Continue 75 mg daily x 1 year or indefinitely if tolerated. -- BB: Continue Carvedilol 1/2 of 3.125 mg po BID. -- ACEI/ARB: On telmisartan 5 mg daily at home. Held today due to lowish blood pressure in house with light increase in creatinine. Resume upon discharge as outpatient -- Antianginal: Nitroglycerin SL prn as needed -- Lipids: Initiated on Atorvastatin 80 mg daily -- Lifestyle modification: Patient is not a smoker, lipids within goal range, has had a gre at amount of stress at home with ill parents (in hospice) and recently from [facility] with financial troubles. Stress reduction as able. Discussed OP therapy and need to utiliz e friends for support during this time. Patient will follow up with PCP regarding therapy op tions. 2. Acute on chronic systolic heart failure: NYHA Class II. TTE Per old chart notes EF 30-35 % with septal, anterolateral, and apical hypokinesis with moderate MR and TR. However repeat TTE on 02/28 showed worsening EF <20%, mild MR, and mod TR. NT Pro BNP 6300 upon admission. Diuresed with furosemide 40 mg po daily with excellent response, -4 liters during admission. Optimized medical management with: --Scheduled Lasix 40 mg po daily; decreased to 20 mg daily for home dosing (was taking only as needed prior to admission) --Continue ARB as prescribed above, will need follow up BMP in one week with PCP --Continue low dose BB, up titrate as able as outpatient (limited by blood pressure in hous e) 3. Ischemic Cardiomyopathy: status post ICD placement in 10/2011 for reduced EF. TTE at [facility] shows reduced EF from prior, now <20%. Continue medical management: --Initiated furosemide daily as above --Continue low dose BB --Resume ARB upon discharge --Continue spironolactone 12.5 mg po daily 4. Hyperlipidemia: Patient reports PCP recently prescribed her simvastatin but she has not been taking it because she wanted to try and fix it on her own. LDL 71 here (near goal <70) -- Initiated on atorvastatin 80 mg daily due to ACS continue as outpatient 5. COPD: History of tobacco use. 1 ppd. Quit after CAGB in 2010. -- Continue home spiriva 6. Hypothyroidism: TSH 2.36 (normal) on admission -- Continue home levothyrioxone of 37.5 mcg daily Pt discharged to home in stable condition on 03/02/2013 with changes in medical regimen, as below, for Cardiology, labs, and PCP follow up arranged as below. Discharge Medication List as of 03/02/2013 9:44 AM START taking these medications Details atorvastatin 80 mg Oral tablet Take 1 tablet by mouth once daily., Disp-30 tablet, R-3, Lovely nt Prescription clopidogrel 75 mg Oral tablet Take 1 tablet by mouth once daily., Disp-30 tablet, R-11, eRx CONTINUE these medications which have CHANGED or have new prescriptions Details furosemide 20 mg Oral tablet Take 1 tablet by mouth once daily., Disp-30 tablet, R-3, Histo rical Med nitroglycerin 0.4 mg Sublingual tablet, sublingual Place 1 tablet under tongue every five m inutes as needed for chest pain. Do not crush. Place under tongue and allow to dissolve. Ad liquor gallery operator every 5 minutes for a maximum of 3 doses in 15 minutes., Disp-25 tablet, R-1, Fax CONTINUE these medications which have NOT CHANGED Details aspirin 325 mg Oral tablet Take 325 mg by mouth once daily., Historical Med carvedilol 3.125 mg Oral tablet Take 1/2 tablet by mouth twice daily. Administer with food. , Historical Med Cholecalciferol, Vitamin D3, (VITAMIN D3) 5,000 unit Oral tablet Take 5,000 Units by mouth once daily., Historical Med ferrous gluconate 325 mg (36 mg iron) Oral tablet Take 325 mg by mouth once daily., Histori jem Med fluticasone 50 mcg/actuation Nasal [place], Suspension Instill 2 sprays into each nostril onc e daily. Shake well before each use Indications: allergies, Historical Med levothyroxine 25 mcg Oral tablet Take 1 & 1/2 tablet by mouth once daily, Historical Med spironolactone 25 mg Oral tablet Take 12.5 mg by mouth once daily., Historical Med telmisartan (MICARDIS) 20 mg Oral tablet Take 1/4 tablet by mouth once daily, Historical Me d tiotropium 18 mcg Inhalation capsule, w/inhalation device Inhale 18 mcg once daily., Histor ical Med traZODone 50 mg Oral tablet Take 50 mg by mouth once daily at bedtime as needed., Historica l Med STOP taking these medications potassium chloride SR 10 mEq Oral tablet,ER particles/crystals Comments: Reason for Stopping: Of note both Dr Morales and Dr Marcano's offices were closed 03/01-03/03 due to the [place] ro und up therefore outpatient appointments were not scheduled. However, the patient was inform ed and will schedule follow up within one week. Schedule the following appointment(s) when you get home Schedule an appointment as soon as possible for a visit with GLORIA MORALES MD. Contact information [facility] [address] [place] [address] Schedule an appointment as soon as possible for a visit with ANETA MARCANO DO. (Make an ap pointment within one week of discharge - facility called and closed today until 03/04) Contact information [facility] Flavio [place] [address] [place] [id number] Discharge Labs: Complete Blood Count Lab Results Component Value Date WBC 6.94 03/02/2013 HB 15.0 03/02/2013 HCT 47.4 03/02/2013 PLT 202 03/02/2013 MCV 94.4 03/02/2013 Basic Metabolic Panel Lab Results Component Value Date NA 138 03/02/2013 K 3.9 03/02/2013 CL 99 03/02/2013 BICARB 31 03/02/2013 BUN 18 03/02/2013 CR 0.90 03/02/2013 GLU 94 03/02/2013 CA 9.0 03/02/2013 Lipid Panel Lab Results Component Value Date CHOL 157 02/27/2013 LDL 71 02/27/2013 HDL 71 02/27/2013 TRI 73 02/27/2013 Most recent LV Ejection Fraction: <20% (02/28/2013) Tobacco Use: No recent tobacco use Core Measures: Diagnosis of Acute MT: Yes. Patient is on Aspirin at discharge.. Patient is on Beta-bl ocker at discharge.. Patient is on JEREMIAH-I/ARB at discharge. Diagnosis of CHF: Yes. Patient is on an JEREMIAH-I/ARB.. Patient is on a beta-angelina at dis charge. Cardiac Rehabilitation: This patient is not referred for cardiac rehabilitation. Outstanding labs/studies: BMP in one week with PCP Discharge weight: Wt Readings from Last 1 Encounters: 03/02/13 69.4 kg (153 lb) Discharging Provider: [facility] Thorne [facility] Attending Physician: Dimitri Valdez MD, Cardiovascular Medicine documented in thi s encounter Discharge Instructions Instructions Darlyn Sherman RN - 03/02/2013Patient Education Materials: plavix Additional Instructions: Activity, medications Discharge Nurse: LANDON LARA Date: 03/02/2013 Discharge Time: 9:42 AM AttachmentsThe following attachments cannot be sent through Care Everywhere.CLOPIDOGREL (PAZ DOUGHERTY)documented in this encounter Medications at Time of Discharge + + + +---------+ + + | Medication | Sig | Dispensed | Refills | Start | End Date | | | | | | Date | | + + + +---------+ + + | aspirin 325 mg | Take 325 mg by mouth | | 0 | | | | Oral tablet | once daily. | | | | | + + + +---------+ + + | atorvastatin 80 mg | Take 1 tablet by | 30 | 3 | 03/02/20 | | | Oral tablet | mouth once daily. | tablet | | 13 | | + + + +---------+ + + | carvedilol 3.125 | Take 1/2 tablet by | | 0 | | | | mg Oral tablet | mouth twice daily. | | | | | | | Administer with | | | | | | | food. | | | | | + + + +---------+ + + | Cholecalciferol, | Take 5,000 Units by | | 0 | | | | Vitamin D3, (VITAMIN | mouth once daily. | | | | | | D3) 5,000 unit Oral | | | | | | | tablet | | | | | | + + + +---------+ + + | clopidogrel 75 mg | Take 1 tablet by | 30 | 11 | 03/02/20 | | | Oral tablet | mouth once daily. | tablet | | 13 | | + + + +---------+ + + | ferrous gluconate | Take 325 mg by mouth | | 0 | | | | 325 mg (36 mg iron) | once daily. | | | | | | Oral tablet | | | | | | + + + +---------+ + + | fluticasone 50 | Instill 2 sprays | | 0 | | | | mcg/actuation Nasal | into each nostril | | | | | | [place], | once daily. Shake | | | | | | SuspensionIndication | well before each use | | | | | | s: allergies | Indications: | | | | | | | allergies | | | | | + + + +---------+ + + | furosemide 20 mg | Take 1 tablet by | 30 | 3 | 03/02/20 | | | Oral tablet | mouth once daily. | tablet | | 13 | | + + + +---------+ + + | levothyroxine 25 | Take 1 & 1/2 tablet | | 0 | | | | mcg Oral tablet | by mouth once daily | | | | | + + + +---------+ + + | nitroglycerin 0.4 | Place 1 tablet under | 25 | 1 | 03/02/20 | | | mg Sublingual | the tongue every | tablet | | 13 | | | tablet, sublingual | five minutes as | | | | | | | needed for [...] 15 minutes. | | | | | + + + +---------+ + + | spironolactone 25 | Take 12.5 mg by | | 0 | | | | mg Oral tablet | mouth once daily. | | | | | + + + +---------+ + + | telmisartan | Take 1/4 tablet by | | 0 | | | | (MICARDIS) 20 mg | mouth once daily | | | | | | Oral tablet | | | | | | + + + +---------+ + + | tiotropium 18 mcg | Inhale 18 mcg once | | 0 | | | | Inhalation capsule, | daily. | | | | | | w/inhalation device | | | | | | + + + +---------+ + + | traZODone 50 mg | Take 50 mg by mouth | | 0 | | | | Oral tablet | once daily at | | | | | | | bedtime as needed. | | | | | + + + +---------+ + + documented as of this encounter Progress Notes Gaby Durham MD - 03/01/2013 9:11 AM PDT INPATIENT INTERVENTIONAL GEEK [employer] BRIEF PROGRESS NOTE Hospital Day:2 Author: Gaby Durham MD Attending Physician: Dimitri Valdez MD ID: 67 yo w/ hx of CAD s/p CABG presents with NSTEMI s/p 2.5 x 33 mm Xience KASIA to LCx SUBJECTIVE: No complaints. No chest pain Current Inpatient Medications Medication Dose Route Frequency acetaminophen (TYLENOL) tablet 325-650 mg 325-650 mg Oral Q4H PRN aspirin tablet 325 mg 325 mg Oral DAILY atorvastatin (LIPITOR) tablet 80 mg 80 mg Oral DAILY carvedilol (aka COREG) oral dose 1.563 mg 1.563 mg Oral BID cholecalciferol (Vitamin D3) (VITAMIN D-3) tablet 5,000 Units 5,000 Units Oral DAILY clopidogrel (PLAVIX) tablet 75 mg 75 mg Oral DAILY ferrous gluconate tablet 36 mg elemental 325 mg total salt Oral DAILY furosemide (LASIX) tablet 40 mg 40 mg Oral DAILY levothyroxine tablet 37.5 mcg 37.5 mcg Oral BEFORE BREAKFAST LORazepam (ATIVAN) tablet 0.5 mg 0.5 mg Oral Q6H PRN magnesium chloride SR (SLOW-MAG) tablet 64 mg 64 mg Oral DAILY morphine injection 1-2 mg 1-2 mg Intravenous Q4H PRN NaCl 0.9 % IV 500 mL Intravenous PRN nitroglycerin (NITROSTAT) tablet 0.4 mg 0.4 mg Sublingual Q5MIN PRN ondansetron (ZOFRAN) injection 4 mg 4 mg Intravenous Q12H PRN polyethylene glycol (MIRALAX) powder 17 g 17 g Oral DAILY PRN senna-docusate (SENOKOT S) 8.6-50 mg 1 tablet 1 tablet Oral BID spironolactone (ALDACTONE) oral dose 12.5 mg 12.5 mg Oral DAILY traZODone (DESYREL) tablet 50 mg 50 mg Oral HS PRN zolpidem (AMBIEN) tablet 5 mg 5 mg Oral HS PRN Physical Exam: Last Vitals: BP 98/44 | Pulse 70 | Temp 36.5 C (97.7 F) | RR 16 | Ht 1.626 m (5' 4") | Wt 72 kg (158 lb 11.7 oz) | SpO2 96% | BMI 27.23 kg/(m^2) 24 Hour Vital Min/Max: Systolic (24hrs), Av mmHg, Min:87 mmHg, Max:114 mmHgDiastolic (24hrs), Av mmHg, Mi n:44 mmHg, Max:80 mmHgPulse Av.2 Min: 58 Max: 113 Temp Av.6 C (97.8 F) Min: 36.5 C (97.7 F) Max: 36.6 C (97.9 F) Resp Av Min: 16 Max: 16 SpO2 Av.4 % Min: 85 % Max: 100 % Intake/Output Summary (Last 24 hours) at 03/01/13 0911 Last data filed at 03/01/13 0800 Gross per 24 hour Intake 735.31 ml Output 3375 ml Net -2639.69 ml GEN: no acute distress CV: RRR, no M/R/G ACCESS SITE: right femoral: no bleeding or hematoma, 2+ DP Lab: Chemistries: Last 72 Hours (or 3 results): Recent Labs 02/27/13 1644 02/28/13 0714 02/28/13 1505 02/28/13 2301 03/01/13 0614 NA 141 139 -- 139 141 K 3.7 4.3 4.5 3.8 4.1 CL 105 103 -- 100 103 BICARB 28 28 -- 29 27 BUN 20 18 -- 16 15 CR 0.83 0.77 -- 0.81 0.95 CA 8.6 8.7 -- 8.5* 8.6 MG 1.5* 3.0* -- -- -- CBC with diff last 72 hours (or 3 results) Recent Labs 02/27/13 1645 02/28/13 0714 02/28/13 2128 03/01/13 0614 WBC 7.24 7.08 5.85 6.87 HB 12.9 13.1 13.1 13.0 HCT 40.4 41.9 40.9 42.1 PLT 176 171 167 204 NEUTROPERC 66.0 -- -- -- LYMPHPERC 23.9 -- -- -- MONOPERC 8.3 -- -- -- BASOPERC 0.3 -- -- -- EOSPERC 1.1 -- -- -- Troponins, last 72 hours: Recent Labs 02/27/13 1644 02/27/13 2240 02/28/13 0714 02/28/13 1505 02/28/13 2301 03/01/13 0614 TROPONIN 9.67* 11.00* 10.70* 5.41* 4.47* 3.25* Assessment and Plan: ++NSTEMI: culprit LCx. Continue aspirin (indifintely) and clopidogrel for one year. Davi fajardo medical management per CCU team. MD GABY Bejarano MD Interventional Design Transferrer Dimitri Rosas MD - 03/01/2013 7:39 AM PDTAttending Note I personally interviewed the patient, performed the kline elements of the physical examinatio n, and personally formulated the assessment and plan with the LABORATORY DEVELOPMENT TECHNICIAN. See LABORATORY DEVELOPMENT TECHNICIAN note for details. Successful LCx PCI yesterday; still with some pulmonary crackles. Diuresis today and d/c to crump. Dimitri Valdez MD chemical compounder helper Cardiovascular Division [facility] [place] DEPARTMENT: Place of Service: [address] [place] [address] Date of Service: 03/01/2013 CSN: [id number] Hollie Pichardo ACNP - 03/01/2013 7:39 AM PDTFormatting of this note might be different from the [facility] P Cardiology Progress Note Date: 03/01/2013 Hospital Day: 2 Attending Instructional Technology Coach: Bhavin Valdez MD Provider: DANNIE Escalera ID: Jennifer Boyce is a 67 year old female with history of CAD s/p 4 vessel CABG in 12/2010, i schemic CM EF 3035% (2011) s/p ICD placement in 10/2011, history of tobacco use, HTN, and HLD , COPD who presented to [place] [facility] in [facility], [place] with worsening chest pain and nausea ruled in for NSTEMI and admitted to [facility]. Interval Events: --Coronary angiogram via RFA: Patent OLSON to LAD Patent SVG to RCA Patent SVG to OM with competitive flow Long 95% mid left circumflex stenosis resolved with PTCI 2.5 x 33 mm Xience KASIA to mid LCx --600 mg Plavix loaded Subjective: Patient feeling much better than yesterday. No further dyspnic episodes, denies CP, SOB, di zziness or other. Denies Right groin pain or discomfort. Has been on bed rest overnight. Current Inpatient Medications: acetaminophen (TYLENOL) tablet 325-650 mg, 325-650 mg, Oral, Q4H PRN aspirin tablet 325 mg, 325 mg, Oral, DAILY atorvastatin (LIPITOR) tablet 80 mg, 80 mg, Oral, DAILY carvedilol (aka COREG) oral dose 1.563 mg, 1.563 mg, Oral, BID cholecalciferol (Vitamin D3) (VITAMIN D-3) tablet 5,000 Units, 5,000 Units, Oral, DAILY clopidogrel (PLAVIX) tablet 75 mg, 75 mg, Oral, DAILY ferrous gluconate tablet 36 mg elemental, 325 mg total salt, Oral, DAILY furosemide (LASIX) tablet 40 mg, 40 mg, Oral, DAILY levothyroxine tablet 37.5 mcg, 37.5 mcg, Oral, BEFORE BREAKFAST LORazepam (ATIVAN) tablet 0.5 mg, 0.5 mg, Oral, Q6H PRN magnesium chloride SR (SLOW-MAG) tablet 64 mg, 64 mg, Oral, DAILY morphine injection 1-2 mg, 1-2 mg, Intravenous, Q4H PRN NaCl 0.9 % IV, 500 mL, Intravenous, PRN nitroglycerin (NITROSTAT) tablet 0.4 mg, 0.4 mg, Sublingual, Q5MIN PRN ondansetron (ZOFRAN) injection 4 mg, 4 mg, Intravenous, Q12H PRN polyethylene glycol (MIRALAX) powder 17 g, 17 g, Oral, DAILY PRN senna-docusate (SENOKOT S) 8.6-50 mg 1 tablet, 1 tablet, Oral, BID spironolactone (ALDACTONE) oral dose 12.5 mg, 12.5 mg, Oral, DAILY traZODone (DESYREL) tablet 50 mg, 50 mg, Oral, HS PRN zolpidem (AMBIEN) tablet 5 mg, 5 mg, Oral, HS PRN Physical Exam: Last Vitals: BP 98/44 | Pulse 70 | Temp 36.5 C (97.7 F) | RR 16 | Ht 1.626 m (5' 4") | Wt 70.6 kg (155 lb 10.3 oz) | SpO2 96% | BMI 26.7 kg/(m^2) 24 Hour Vital Min/Max: Systolic (24hrs), Av mmHg, Min:87 mmHg, Max:114 mmHg Diastolic (24hrs), Av mmHg, Min:44 mmHg, Max:80 mmHg Pulse Av.1 Min: 58 Max: 113 Temp Av.6 C (97.8 F) Min: 36.5 C (97.7 F) Max: 36.6 C (97.9 F) Resp Av.5 Min: 16 Max: 18 SpO2 Av.5 % Min: 85 % Max: 100 % Intake/Output Summary (Last 24 hours) at 03/01/13 0739 Last data filed at 03/01/13 0400 Gross per 24 hour Intake 758.54 ml Output 3075 ml Net -2316.46 ml General: elderly female in no acute distress, appropriately interactive/cooperative Neck: JVD 7 cm, negative AJR, no bruits or LAD Lungs: Fine crackles bibasilar L>R slightly increased from yesterday. No wheezing or rhonch i. Cardiac: RRR. S1, S2, +S4. No murmurs, rubs or gallops. PMI non-displaced Lower extremities: trace LE edema bilat., right femoral site without hematoma, soft, no bru it, no oozing, slightly ecchymotic, DP 2+ distally, no numbness tingling of RLE Neuro: A & O x 3 Diagnostic Date: Laboratory Data: Chemistries: Last 72 Hours (or 3 results): Recent Labs 02/27/13 1644 02/28/13 0714 02/28/13 1505 02/28/13 2301 02/28/13 2314 NA 141 139 -- 139 -- K 3.7 4.3 4.5 3.8 -- CL 105 103 -- 100 -- BICARB 28 28 -- 29 -- BUN 20 18 -- 16 -- CR 0.83 0.77 -- 0.81 -- GLU 102* 105* -- 91 95 CA 8.6 8.7 -- 8.5* -- MG 1.5* 3.0* -- -- -- Lab Results Component Value Date NA 141 03/01/2013 K 4.1 03/01/2013 CL 103 03/01/2013 BICARB 27 03/01/2013 BUN 15 03/01/2013 CR 0.95 03/01/2013 GLU 117 03/01/2013 CA 8.6 03/01/2013 Recent Labs 02/27/13 1645 02/28/13 0714 02/28/13 2128 WBC 7.24 7.08 5.85 H 12.9 13.1 13.1 HCT 40.4 41.9 40.9 PLT 176 171 167 NEUTROPERC 66.0 -- -- LYMPHPERC 23.9 -- -- MONOPERC 8.3 -- -- BASOPERC 0.3 -- -- EOSPERC 1.1 -- -- Lab Results Component Value Date WBC 6.87 03/01/2013 HB 13.0 03/01/2013 HCT 42.1 03/01/2013 PLT 204 03/01/2013 MCV 95.5 03/01/2013 Recent Labs 02/27/13 1644 AST 73* ALT 37 TBILI 0.6 AP 98 ALB 3.8 TP 6.9 Lab Results Component Value Date CHOL 157 02/27/2013 LDL 71 02/27/2013 HDL 71 02/27/2013 TRI 73 02/27/2013 Lab Results Component Value Date TROPONIN 4.47* 02/28/2013 TROPONIN 5.41* 02/28/2013 TROPONIN 10.70* 02/28/2013 Lab Results Component Value Date NTPROBNP 6314 02/28/2013 Lab Results Component Value Date TSH 2.36 02/27/2013 EK02/27/2013: NSR 67, normal axis, q- waves in V1, V2, V3, T-wave inversion in I, V3, V5, V6 Loss of R wave voltage in leads II, III, avF from ECG compared to outside hospital ECG 02/28/2013: NSR @ 62 bpm, normal axis, q waves V1-V4, II, III - TWI V5, V6, I, AVL 03/01/2013: mostly unchanged from yesterday NSR, normal axis, septal anterior Qwaves as abov e with TWI laterally Tele: NSR, few episodes of AIVR 9 pm but none after midnight TTE: 02/28/13 Final Impressions: 1. The left ventricular cavity size is severely increased. 2. The LV systolic function is severely decreased. The pattern is global. 3. Visually estimated left ventricular ejection fraction is < 20%. 4. Moderate tricuspid regurgitation Cardiac Rhythm: Normal sinus rhythm. Left Ventricle: The left ventricular cavity size is severely increased. Visually estimated left ventricular ejection fraction is < 20%. The LV systolic function is severely decreased. LV ejection fra ction is severely decreased, at 27.7 % using biplane Cohen's method. Due to poor endocardial defin ition, ultrasound contrast was used (Definity). Atria:Left atrial size is mildly dilated. Right atrial size is normal. Right Ventricle:Right ventricular size, thickness and function are normal. The right ventri cular size is normal. Aortic Valve: The aortic valve is structurally normal. Mitral Valve: The mitral valve is structurally normal. The E-point septal separation is inc reased. Mild mitral valve regurgitation. Tricuspid Valve: The tricuspid valve is structurally normal. Moderate tricuspid regurgitati on. The tricuspid regurgitant velocity is 2.16 m/s, and with an assumed right atrial pressure of 10 mmHg, the estimated right ventricular systolic pressure is normal at 28.7 mmHg. Pulmonic Valve: The pulmonic valve is not well visualized. Aorta: The ascending aorta appears normal. Venous: The inferior vena cava was normal sized, with respiratory size variation less than 50%. CXR [facility] 02/27/2013: Enlargement of cardiac silhouette. Pulmonary vascularity is wit hin normal limits. The lungs appear clear ASSESSMENT & PLAN: Ms. Boyce is a 67 yo woman with significant CAD s/p 4v CABG in 2010, ischemic cardiomyopathy s/p ICD placement in 2011, HLD, and history of tobacco use who presented with chest pain, E CG changes and elevated troponins consistent with NSTEMI. # NSTEMI: History of significant CAD with diffuse 4v disease s/p CABG (OLSON to LAD, SVG to PDA, SVG to LpLA, SVG to marginal) in 2010. Chest pain with T-wave inversion in septal later al leads with troponin elevation at outside hospital to 2.61 consistent with NSTEMI. ECG @ [facility] with decreased r-wave voltage in inferior leads when compared with OSH. Troponin peaked at 11, downtrended to 4 today, yesterday with dyspnic episodes likely representing anginal p ain, now CP/dypnea free after stent to [place] Cx lesion. -- Anticoagulation: Received Heparin and Integrilin per ACS protocol now discontinued -- Antiplatelet:Continue ASA 325 mg daily x 1 month then decrease to 81 daily. Received 600 mg Plavix in laboratory machinist yesterday, continue 75 mg daily x 1 year -- Double product control: Continue low dose BB (Carvedilol / 3.125 mg po BID). On telmis piper 5 mg daily at home. Held today due to lowish BP and slight increase in Cr. Will resume tomorrow upon discharge. -- Antianginal: Nitroglycerin SL prn as OP -- Lipids: Continue Atorvastatin 80 mg daily -- Lifestyle modification: Patient is not a smoker, lipids within goal range, has had a gre at amount of stress at home with ill parents (in hospice) and recently from [facility] with financial troubles. #Acute on chronic systolic heart failure: NYHA Class II. TTE Per old chart notes EF 30-35% with septal, anterolateral, and apical hypokinesis with moderate MR and TR. However repeat T TE 02/28 shows worsening EF, mild MR, and mod TR. NT Pro BNP 6300 upon admission. Diuresed w ith furosemide 40 mg po. Appears slightly overloaded on exam today as received IV fluids ove rnight post cath although net negative 2.3 liters. --Scheduled Lasix 40 mg po daily --> may decrease to 20 mg daily for OP dosing --Recently started on low dose ARB (telmisartan 5 mg po daily) as OP, will continue once di scharged. Not on formulary and watching Cr today --Continue low dose BB, up titrate as able # Ischemic Cardiomyopathy: s/p ICD placement in 10/2011 for reduced EF. TTE here shows reduc ed EF from prior, now <20% --Initiate furosemide daily as above --Continue low dose BB --Initiate ARB tomorrow, pending BP and renal function --On spironolactone as OP - new indications making it appropriate for this patient even tho ugh she is NYHA Class II - this was being used as OP as maintenance diuretic,will continue # Hyperlipidemia: Patient reports PCP recently prescribed her simvastatin but she reports s he has not been taking it because she wanted to try and fix it on her own. LDL 71 here (near goal <70) -- Initiated atorvastatin 80 mg daily d/t ACS continue #COPD: History of tobacco use. 1 ppd. Quit after CAGB in 2010. -- Begin home spiriva tomorrow # Hypothyroidism: TSH 2.36 (normal) on admission -- Continue home levothyrioxone of 37.5 mcg daily FEN/GI:Prudent, Na restriction, 2L fluid restriction Prophylaxis: SCD Code Status: FC/FT Disposition: Home tomorrow CODE: FC/FT This patient was interviewed and examined by attending center maker hand, Dr. Bhavin Gillette, who is in agreement with above described findings, assessment and plan. Hollie Thorne, [facility] Cardiovascular Medicine Pager [phone] Dorina Thibodeaux MD - 03/01/2013 6:17 AM PDT POST-CATH Groin Check S: No complaints. Pain improved. Called to bedside to obtain hemostasis after initial she ath pull. Unable to control bleeding initially per nursing, but when I arrived, there were two people and hemostasis achieved. Small hematoma present. I took over holding pressure a t the end and applied 10 extra minutes. No hematoma. Last Vitals: BP 104/64 | Pulse 63 | Temp 36.6 C (97.9 F) | RR 16 | Ht 1.626 m (5' 4") | Wt 72 kg (158 lb 11.7 oz) | SpO2 98% | BMI 27.23 kg/(m^2) 24 Hour Vital Min/Max: Systolic (24hrs), Av mmHg, Min:87 mmHg, Max:114 mmHg Diastolic (24hrs), Av mmHg, Min:51 mmHg, Max:80 mmHg Pulse Min: 58 Max: 88 Temp Min: 36.5 C (97.7 F) Max: 36.6 C (97.9 F) Resp Min: 16 Max: 18 SpO2 Min: 85 % Max: 100 % Intake/Output Summary (Last 24 hours) at 03/01/13 0617 Last data filed at 03/01/13 0400 Gross per 24 hour Intake 795.09 ml Output 3275 ml Net -2479.91 ml Gen: comfortable appearing. Neuro: negative Access Site: No hematoma or oozing. Pulse:right femoral: 2+ right DP: 2+ Skin: No embolic phenomena in hands/feet. Groin: No hematoma or oozing from right femoral artery & vein access site Extr: 2+ DP pulse right foot A/P: No evidence of acute complications following procedure. Continue current post-cath dianna MANCILLA MD [facility] [id number] [address] Justus Tovar MD - 8:37 PM PDTCardiology Preliminary Procedure Note (Full report to follow) Primary Care Provider: Gloria Morales MD Referring Provider: Tiffanie Murphy MD Ed Teacher Staff: Amrit Sharma M.D. Procedure(s): Coronary Angiography Percutaneous Coronary Intervention (PCI) Indications: NSTEMI Access: 5F RFA Estimated Blood Loss: minimal Medications: Fentanyl 75 mcg Route: IV Midazolam 2 mg Route: IV Heparin 1500 units Route: IV Clopidogrel 600 mg Route: POEptifibatide weight based bolus followed by infusion for th e duration of the procedure Route: IV Contrast: 150 mL Visipaque Findings: Patent OLSON to LAD Patent SVG to RCA Patent SVG to OM with competitive flow Long 95% mid left circumflex stenosis resolved with PTCI Intervention: 2.5 x 33 mm Xience KASIA to mid LCx Complications: None Hemostasis: Manual compression when PTT is acceptable. Site: [facility] Recommendations: Usual post cath care. Bed rest for 6 hours after hemostasis is obtained. ASA indefinitely. Continue Eptifibatide (Integrilin) for 6 Hours. Clopidogrel 75 mg once daily for at least 12 months. Justus Dawson MD Design Transferrer Pager [phone] lfred Rooney - 02/28 1:03 PM PDTTransthoracic echocardiogram completed. Final report to follow. Doc Villar M D - 02/28/2013 8:32 AM PDT INTERVENTIONAL CARDIOLOGY Pre Procedure History and Physical PCP: No primary provider on file. Referring Instructional Technology Coach: Tiffanie Murphy MD from [facility] and Dr. Natalie amos from [facility] CCU. Cath Attending:Amrit Sharma M.D. Brief HPI: Ms. Boyce is a 67 year old former smoker woman with history of CAD s/p 4-v CABG on 01/05/2011 at [facility] (OLSON to LAD, SVG to PDA, marginal, and L posterolateral artery), ICM (E F 30-35%) s/p ICD placement in 10/2011, HTN, HLD, and COPD who was transferred to [facility] CCU [facility] on 02/27 pm for further treatment of NSTEMI. Interventional cardiol estephanie is consulted to perform cardiac catheterization. She experienced sudden onset chest pain across her hemithoraces at midnight on 02/27 when ge tting ready to go to bed. It was severe pressure type pain, radiating to both jaws and down to both arms, associated with nausea, diaphoresis, headache, and worsening dyspnea. She pres ented to [facility] ED in [facility], [place] shortly after CP started. Received SL NTG, morphi ne, and zofran but chest pain persisted. NTG paste was placed and chest pain subsided after a few hours per her report. Initial EKG was remarkable for NSR with Qwave in V1-V3, T wave flattening in I and AVL and V3. Subsequently developed TWI in V3-V6. Labs notable for troponin of 0.03, CK-MB 2.3 but raised to 0.29 and 6.0 respectively few ho urs later. Troponin continues to rise at [facility]. Received ASA, enaxoparin, furosemide, carvedilol, morphine, NTG, lorazepam, and pantoprazol e at [facility]. CP resolved before transfer to [facility]. Since arrival here, has been having intermittent chest pressure in left hemithorax, lasting couple minutes and resolving on its own. She still has dyspnea even at rest. She had similar presentation in 12/2010, underwent cardiac cath and was found to have severe 3-v CAD with chronically occluded LAD. She had been CP free since CABG until 02/27 midnight . She takes lasix 20 mg/d every day and weighs herself daily. Dry wt is 157 lb but had gaine d 9 lb over the past few days. denies orthopnea and PND but has chronic CABRERA. She gets CABRERA wh en taking stairs (less than a flight). Most strenuous recent exercise was walking around the [place] last week but had to stop multiple times due to CABRERA but no CP. She quit smoking in 12/18 but was a heavy smoker prior. 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 H/o of heavy drinking for 2 years. - LBP - Cataract PSH: - CABG 2010 (OLSON to LAD, SVG to PDA, marginal, and L posterolateral artery) - gastric banding - partial gasterctomy - Hysterectomy - Tonsillectomy - RLE vein stripping FH: - maternal aunt of heart disease. It was a SCD. Social history: She lives by herself. a few years ago. Her daughter lives in and currently visi ting her. Quit smoking in 12/2010. Drinks a glass of wine couple times a month. Was a heavy drinker fo r 2 years until 2010. Denies illicit drugs. History of Risk Factors: Current/ Recent Smoker: no Hypertension: yes Dyslipidemia: yes Family History of Premature CAD: Yes. Maternal aunt with SCD at age of 34. Prior MT: yes Prior Heart Failure: yes Prior Valve Surgery/Procedure: no Prior PCI: no Prior CABG:yes - most recent CABG date: 01/05/2011 Renal Impairment: no Hemodialysis: no Cerebrovascular Disease: no Peripheral Arterial Disease: no Chronic Lung Disease: yes Diabetes Mellitus: no Allergies: NKDA Current Facility-Administered Medications Medication Dose Route Frequency Provider Last Rate Last Dose acetaminophen (TYLENOL) tablet 325-650 mg 325-650 mg Oral Q4H PRN Joanie Lawrence PA-C 650 mg at 02/28/13 0412 aspirin tablet 325 mg 325 mg Oral DAILY Joanie Lawrence PA-C atorvastatin (LIPITOR) tablet 80 mg 80 mg Oral DAILY Joanie Lawrence PA-C 80 mg at 0 02/27/132105 carvedilol (aka COREG) oral dose 1.563 mg 1.563 mg Oral BID Joanie Lawrence PA-C cholecalciferol (Vitamin D3) (VITAMIN D-3) tablet 5,000 Units 5,000 Units Oral DAILY L deepak Lawrence PA-C clopidogrel (PLAVIX) tablet 75 mg 75 mg Oral DAILY Joanie Lawrence PA-C 75 mg at 05/01 ferrous gluconate tablet 36 mg elemental 325 mg total salt Oral DAILY Joanie Lawrence PA-C heparin bolus from continuous infusion 2,000 Units 2,000 Units Intravenous NEEDED ( BOLUS) Joanie Lawrence PA-C heparin in D5W IV infusion 25,000 units/250 mL 1-2,000 Units/hr Intravenous CONTINUOUS Joanie Lawrence PA-C 8.5 mL/hr at 02/28/13 0157 850 Units/hr at 02/28/13 015 levothyroxine tablet 37.5 mcg 37.5 mcg Oral BEFORE BREAKFAST Joanie Lawrence PA-C 37 .5 mcg at 02/28/13 0814 magnesium chloride SR (SLOW-MAG) tablet 64 mg 64 mg Oral DAILY Joanie Lawrence PA-C 64 mg at 02/27/132105 morphine injection 1-2 mg 1-2 mg Intravenous Q4H PRN Joanie Lawrence PA-C nitroglycerin (NITRO-BID) 2 % ointment 0.5 inch 0.5 inch Topical BID ( and ) Didi Lawrence PA-C 0.5 inch at 02/28/13 0815 nitroglycerin (NITROSTAT) tablet 0.4 mg 0.4 mg Sublingual Q5MIN PRN DOMINIC Serna ondansetron (ZOFRAN) injection 4 mg 4 mg Intravenous Q12H PRN Joanie Lawrence PA-C 4 mg at 02/27/13 1901 polyethylene glycol (MIRALAX) powder 17 g 17 g Oral DAILY PRN Joanie Lawrence PA-C senna-docusate (SENOKOT S) 8.6-50 mg 1 tablet 1 tablet Oral BID Joanie Lawrence PA-C 1 tablet at 02/27/13 210 traZODone (DESYREL) tablet 50 mg 50 mg Oral HS PRN Joanie Lawrence PA-C zolpidem (AMBIEN) tablet 5 mg 5 mg Oral HS PRN Joanie Lawrence PA-C Clinical Evaluation Prior to Procedure: CAD presentation: NSTEMI (7 days): Sx onset Date/Time: 02/27 midnight. Anginal Classification: CCS : 4 (0=asymptomatic; 1= angina w strenuous exercise; 2=angina with moderate exertion; 3=angina with mild exertion, ie 1 flt of stairs at nl pace; 4=angina at any level of activity) Anti-Anginal med w/in 2 weeks: Yes Type: Beta angelina Heart Failure w/in 2 weeks: Yes NYHA Class: 3 (Class 1=no limitation w ordinary activity; Class 2= mild exertional limitation w ordinary activity; Class 3= marked limitation at less than ordinary activity; Class 4=cardiac insuffi ciency at rest) Cardiomyopathy or LV Systolic Dysfunction: yes Preoperative Evaluation Before non-Cardiac Surgery: no Cardiogenic Shock w/in 24 Hours: no Cardiac Arrest w/in 24 Hours: no Stress or Imaging Studies Performed: TTE 02/28/13 Final Impressions: 1. The left ventricular cavity size is severely increased. 2. The LV systolic function is severely decreased. The pattern is global. 3. Visually estimated left ventricular ejection fraction is < 20%. 4. Moderate tricuspid regurgitation. Last TTE documented in [facility] note showed EF of 30-35%, with moderate MR and TR. Hyp okinetic septal, anterolateral, and apical segments. Date is unknown at this point. ROS: Please see HPI and PMH. Comprehensive ROS otherwise negative by interview. Physical Exam: BP 109/78 | Pulse 66 | Temp 36.5 C (97.7 F) | RR 18 | Ht 1.626 m (5' 4") | Wt 72 kg (15 8 lb 11.7 oz) | SpO2 98% | BMI 27.23 kg/(m^2) Physical Examination: General: healthy, alert and cooperative, NAD HEENT: Normal, wearing dentures. CVS exam: RRR, S1, S2 normal, 2/6 holosystolic murmur is best heard at LLSB Pulse: right and left radial: 2+, bilat femoral pulses 2+ palpable. Faint bilat DP with per ipheral filling less than 2 seconds. Extremities: Extremities normal. No deformities, edema, or skin discoloration. Abdomen: s oft, ND, non TTP Respiratory: CTA-B, no crackles is auscultated. No chest wall tenderness. Neuro: CN II-XII is grossly intact. Bandar's test: TYPE A LABS: Chemistries: Last 72 Hours (or 3 results): Recent Labs 02/27/13 1644 02/28/13 0714 NA 141 139 K 3.7 4.3 CL 105 103 BICARB 28 28 BUN 20 18 CR 0.83 0.77 GLU 102* 105* CA 8.6 8.7 MG 1.5* 3.0 CBC with diff last 72 hours (or 3 results) Recent Labs 02/27/13 1645 02/28/13 0714 WBC 7.24 7.08 HB 12.9 13.1 HCT 40.4 41.9 PLT 176 171 NEUTROPERC 66.0 -- LYMPHPERC 23.9 -- MONOPERC 8.3 -- BASOPERC 0.3 -- EOSPERC 1.1 -- Estimated Creatinine Clearance: >60 ml/min (based on Cr of 0.77). INR 1.13 on 02/27 Troponin 9.67 (16:44 02/27) --> 10.7 today. Assessment: Ms. Boyce is a 67 year old former smoker woman with history of CAD s/p 4-v CABG on 01/05/2011 at [facility] (OLSON to LAD, SVG to PDA, marginal, and L posterolateral artery), ICM (E F 30-35%) s/p ICD placement in 10/2011, HTN, HLD, and COPD who was transferred to [facility] CCU [facility] on 02/27 pm for further treatment of NSTEMI. Interventional cardiol ogy is consulted to perform cardiac catheterization. Plan: 1. Procedure explained. Risks, benefits and alternatives discussed. Questions answered. In formed consent obtained. Plan proceed with Coronary Angiography and possible PCI. 2. Access to be obtained from the Right Femoral Vein. 3. Renal prophylaxis: GFR: Estimated Creatinine Clearance: >60 ml/min (based on Cr of 0.7 7). 4. Bleeding Risk Assessment: Low 5. Elective surgeries planned: no 6. Issues with dual platelet therapy: None Doc Mcelroy Internal Medicine Resident Pager [phone] Phuong Rosas MD - 02/28/2013 7:17 AM PDTAttending Note I personally interviewed the patient, performed the kline elements of the physical examinatio n, and personally formulated the assessment and plan with the LABORATORY DEVELOPMENT TECHNICIAN. See LABORATORY DEVELOPMENT TECHNICIAN note for details. Cath today. Echo shows severe LVE and LV dysfunction. Dimitri Valdez MD chemical compounder helper Cardiovascular Division [facility] [place] DEPARTMENT: Place of Service: [address] [place] [address] Date of Service: 02/28/2013 CSN: [id number] Suggested Modifiers: GC-Resident Hollie Pichardo ACNP - 02/28/2013 7:17 AM PDTFormatting of this note might be different from the alycia drummond. P Cardiology Progress Note Date: 02/28/2013 Hospital Day: 1 Attending Instructional Technology Coach: Bhavin Valdez MD Provider: DANNIE Escalera ID: Jennifer Boyce is a 67 year old female with history of CAD s/p 4 vessel CABG in 12/2010, i schemic CM EF 3035% (2011) s/p ICD placement in 10/2011, history of tobacco use, HTN, and HLD , COPD who presented to [place] ED in [facility], [place] with worsening chest pain and nause a. Coronary Artery Bypass 01/05/2011: Left internal mammary artery to left anterior descending, saphenous vein to posterior descending artery, saphenous vein to left posterolateral artery , saphenous vein to marginal Interval Events: --Troponin elevated overnight 9--> 11 --No CP overnight but intermittent episodes of dyspnea in lower abdominal area --Continued on Heparin gtt overnight, received Plavix, ASA Subjective: Denies CP but describes intermittent episodes of dyspnea, not orthopnic or PND. Denies ches t pain, pressure, nausea, jaw pain, dizziness, headache or other. Current Inpatient Medications: acetaminophen (TYLENOL) tablet 325-650 mg, 325-650 mg, Oral, Q4H PRN aspirin tablet 325 mg, 325 mg, Oral, DAILY atorvastatin (LIPITOR) tablet 80 mg, 80 mg, Oral, DAILY carvedilol (aka COREG) oral dose 1.563 mg, 1.563 mg, Oral, BID cholecalciferol (Vitamin D3) (VITAMIN D-3) tablet 5,000 Units, 5,000 Units, Oral, DAILY eptifibatide (INTEGRILIN) 0.75 mg/mL IV infusion, 2 mcg/kg/min, Intravenous, CONTINUOUS ferrous gluconate tablet 36 mg elemental, 325 mg total salt, Oral, DAILY heparin bolus from continuous infusion 2,000 Units, 2,000 Units, Intravenous, NEEDED (CARYN PAO) heparin in D5W IV infusion 25,000 units/250 mL, 1-2,000 Units/hr, Intravenous, CONTINUOUS levothyroxine tablet 37.5 mcg, 37.5 mcg, Oral, BEFORE BREAKFAST magnesium chloride SR (SLOW-MAG) tablet 64 mg, 64 mg, Oral, DAILY morphine injection 1-2 mg, 1-2 mg, Intravenous, Q4H PRN nitroglycerin (NITRO-BID) 2 % ointment 0.5 inch, 0.5 inch, Topical, BID (08 and 14) nitroglycerin (NITROSTAT) tablet 0.4 mg, 0.4 mg, Sublingual, Q5MIN PRN ondansetron (ZOFRAN) injection 4 mg, 4 mg, Intravenous, Q12H PRN polyethylene glycol (MIRALAX) powder 17 g, 17 g, Oral, DAILY PRN senna-docusate (SENOKOT S) 8.6-50 mg 1 tablet, 1 tablet, Oral, BID traZODone (DESYREL) tablet 50 mg, 50 mg, Oral, HS PRN zolpidem (AMBIEN) tablet 5 mg, 5 mg, Oral, HS PRN Physical Exam: Last Vitals: BP 109/78 | Pulse 66 | Temp 36.5 C (97.7 F) | RR 18 | Ht 1.626 m (5' 4") | Wt 72 kg (158 lb 11.7 oz) | SpO2 98% | BMI 27.23 kg/(m^2) 24 Hour Vital Min/Max: Systolic (24hrs), Av mmHg, Min:109 mmHg, Max:136 mmHg Diastolic (24hrs), Av mmHg, Min:67 mmHg, Max:87 mmHg Pulse Av.7 Min: 61 Max: 70 Temp Av.6 C (97.8 F) Min: 36.4 C (97.5 F) Max: 36.6 C (97.9 F) Resp Av Min: 16 Max: 16 SpO2 Av.8 % Min: 95 % Max: 98 % Intake/Output Summary (Last 24 hours) at 02/28/13 0718 Last data filed at 02/28/13 0618 Gross per 24 hour Intake 623.98 ml Output 1000 ml Net -376.02 ml General: elderly female in no acute distress, appropriately interactive/cooperative Neck: JVD 7 cm, negative AJR, no bruits or LAD Lungs: Fine crackles bibasilar L>R. No wheezing or rhonchi. Cardiac: RRR. S1, S2, +S4. No murmurs, rubs or gallops. PMI non-displaced Lower extremities: trace LE edema bilat. Neuro: A & O x 3 Diagnostic Date: Laboratory Data: Chemistries: Last 72 Hours (or 3 results): Recent Labs 02/27/13 1644 NA 141 K 3.7 CL 105 BICARB 28 BUN 20 CR 0.83 GLU 102* CA 8.6 MG 1.5* Lab Results Component Value Date NA 139 02/28/2013 K 4.3 02/28/2013 CL 103 02/28/2013 BICARB 28 02/28/2013 BUN 18 02/28/2013 CR 0.77 02/28/2013 GLU 105 02/28/2013 CA 8.7 02/28/2013 Recent Labs 02/27/13 1645 WBC 7.24 HB 12.9 HCT 40.4 PLT 176 NEUTROPERC 66.0 LYMPHPERC 23.9 MONOPERC 8.3 BASOPERC 0.3 EOSPERC 1.1 Lab Results Component Value Date WBC 7.08 02/28/2013 HB 13.1 02/28/2013 HCT 41.9 02/28/2013 PLT 171 02/28/2013 MCV 95.0 02/28/2013 Recent Labs 02/27/13 1644 AST 73* ALT 37 TBILI 0.6 AP 98 ALB 3.8 TP 6.9 Lab Results Component Value Date CHOL 157 02/27/2013 LDL 71 02/27/2013 HDL 71 02/27/2013 TRI 73 02/27/2013 Lab Results Component Value Date TROPONIN 10.70* 02/28/2013 TROPONIN 11.00* 02/27/2013 TROPONIN 9.67* 02/27/2013 Lab Results Component Value Date NTPROBNP 6314 02/28/2013 EK02/27/2013: NSR 67, normal axis, q- waves in V1, V2, V3, T-wave inversion in I, V3, V5, V6 Loss of R wave voltage in leads II, III, avF from ECG compared to outside hospital ECG 02/28/2013: NSR @ 62 bpm, normal axis, q waves V1-V4, II, III - TWI V5, V6, I, AVL Tele: NSR, frequent PVCs, frequent episodes of AIVR TTE: scheduled for this am CXR [facility] 02/27/2013: Enlargement of cardiac silhouette. Pulmonary vascularity is wit hin normal limits. The lungs appear clear ASSESSMENT & PLAN: Ms. Boyce is a 67 yo woman with significant CAD s/p 4v CABG in 2010, ischemic cardiomyopathy s/p ICD placement in 2011, HLD, and history of tobacco use who presented with chest pain, E CG changes and elevated troponins consistent with NSTEMI. # NSTEMI: History of significant CAD with diffuse 4v disease s/p CABG (OLSON to LAD, SVG to PDA, SVG to LpLA, SVG to marginal) in 2011. Chest pain with T-wave inversion in septal later al leads with troponin elevation at outside hospital to 2.61 consistent with NSTEMI. ECG @ [facility] with decreased r-wave voltage in inferior leads when compared with OSH ECG which could i ndicate event in that area. Overnight troponin increased to 11 with dyspnic episodes likely representing anginal pain, etiology likely acute thrombosis in graft vs. [place] vessel disea se. -- NPO for cardiac cath today (consented and seen by Cath Fellow) -- Trend troponins until peaked -- Anticoagulation: Continue Heparin per ACS protocol. Initiated Integrilin gtt per ACS pro tocol based on positive trop and likely anginal pain (dyspnea) -- Antiplatelet: Plavix 75 mg daily discontinued in favor of IIB/IIIA gtt. Continue Aspirin 325 mg daily -- Double product control: Continue low dose BB (Carvedilol 1/2 3.125 mg po BID). Not curre ntly on ACEI/ARB, will plan to initiate low dose lisinopril tomorrow -- Antianginal: Continue nitroglycerin paste, can escalate to NTG if angina persists -- Lipids: Continue Atorvastatin 80 mg daily -- Lifestyle modification: Patient is not a smoker, lipids within goal range, has had a gre at amount of stress at home with ill parents (in hospice) and recently from [facility] [place] with financial troubles. #Acute on chronic systolic heart failure: NYHA Class II. TTE Per old chart notes EF 30-35% with septal, anterolateral, and apical hypokinesis with moderate MR and TR. Recent increased SOB and 10# weight gain and increased use of lasix consistent with decompensation. 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 Lasix given at outside hospital with good response, appears euvolemic on exam today. --TTE today --Scheduled Lasix 40 mg po daily --Recently started on low dose ARB (telmisartan 5 mg po daily) as OP. Will plan to initiate low dose ACEI as above --Continue low dose BB, up titrate as able # Ischemic Cardiomyopathy: s/p ICD placement in 10/2011 for reduced EF. --Initiate furosemide daily as above --Continue low dose BB --Initiate ACEI tomorrow, pending BP and renal function --On spironolactone as OP - not indicated as patient is NYHA Class II - this was being used as OP as maintenance diuretic, will change to daily furosemide and DC spironolactone # Hyperlipidemia: Patient reports PCP recently prescribed her simvastatin but she reports s he has not been taking it because she wanted to try and fix it on her own. LDL 71 here (near goal <70) -- Initiated atorvastatin 80 mg daily d/t ACS #COPD: History of tobacco use. 1 ppd. Quit after CAGB in 2010. -- Begin home spiriva tomorrow # Hypothyroidism: TSH ordered - pending -- Continue home levothyrioxone of 37.5 mcg daily FEN/GI: NPO after midnight, 2L fluid restriction Prophylaxis: heparin, integrilin gtt Code Status: FC/FT Disposition: > 24 hours CODE: FC/FT This patient was interviewed and examined by attending center maker hand, Dr. Valdez, who is in agreement with above described findings, assessment and plan. Hollie Thorne, [facility] Cardiovascular Medicine Pager [phone] documented in thi s encounter Plan of Treatment Not on filedocumented as of this encounter Procedures + +--------+ + + + | Procedure Name | Priori | Date/Time | Associated Diagnosis | Comments | | | ty | | | | + +--------+ + + + | CARDIAC CATH | | 03/06/2013 | | Results for this | | | | 11:05 PM | | procedure are in the | | | | PDT | | results section. | + +--------+ + + + | CBC (HEMOGRAM) ONLY | Routin | 03/02/2013 | | Results for this | | | e | 6:57 AM | | procedure are in the | | | | PDT | | results section. | + +--------+ + + + | INR | Routin | 03/02/2013 | | Results for this | | | e | 6:57 AM | | procedure are in the | | | | PDT | | results section. | + +--------+ + + + | BASIC METABOLIC SET | Routin | 03/02/2013 | | Results for this | | (NA, K, CL, TCO2, | e | 6:57 AM | | procedure are in the | | BUN, CR, GLU, CA) | | PDT | | results section. | + +--------+ + + + | CBC ONLY | Routin | 03/02/2013 | | Results for this | | | e | 6:57 AM | | procedure are in the | | | | PDT | | results section. | + +--------+ + + + | CAPILLARY BLOOD | Routin | 03/01/2013 | | Results for this | | GLUCOSE (NO CHG), | e | 1:34 PM | | procedure are in the | | POC | | PDT | | results section. | + +--------+ + + + | CAPILLARY BLOOD | Routin | 03/01/2013 | | Results for this | | GLUCOSE (NO CHG), | e | 8:52 AM | | procedure are in the | | POC | | PDT | | results section. | + +--------+ + + + | CBC (HEMOGRAM) ONLY | Routin | 03/01/2013 | | Results for this | | | e | 6:14 AM | | procedure are in the | | | | PDT | | results section. | + +--------+ + + + | INR | Routin | 03/01/2013 | | Results for this | | | e | 6:14 AM | | procedure are in the | | | | PDT | | results section. | + +--------+ + + + | TROPONIN I, PLASMA | Routin | 03/01/2013 | | Results for this | | | e | 6:14 AM | | procedure are in the | | | | PDT | | results section. | + +--------+ + + + | BASIC METABOLIC SET | Routin | 03/01/2013 | | Results for this | | (NA, K, CL, TCO2, | e | 6:14 AM | | procedure are in the | | BUN, CR, GLU, CA) | | PDT | | results section. | + +--------+ + + + | CBC ONLY | Routin | 03/01/2013 | | Results for this | | | e | 6:14 AM | | procedure are in the | | | | PDT | | results section. | + +--------+ + + + | 12 LEAD ECG | Routin | 03/01/2013 | | Results for this | | | e | 6:11 AM | | procedure are in the | | | | PDT | | results section. | + +--------+ + + + | 12 LEAD ECG | Routin | 03/01/2013 | | Results for this | | | e | 12:11 AM | | procedure are in the | | | | PDT | | results section. | + +--------+ + + + | CAPILLARY BLOOD | Routin | 02/28/2013 | | Results for this | | GLUCOSE (NO CHG), | e | 11:14 PM | | procedure are in the | | POC | | PDT | | results section. | + +--------+ + + + | TROPONIN I, PLASMA | Routin | 02/28/2013 | | Results for this | | | e | 11:01 PM | | procedure are in the | | | | PDT | | results section. | + +--------+ + + + | BASIC METABOLIC SET | Routin | 02/28/2013 | | Results for this | | (NA, K, CL, TCO2, | e | 11:01 PM | | procedure are in the | | BUN, CR, GLU, CA) | | PDT | | results section. | + +--------+ + + + | APTT (ACT. PART. | Routin | 02/28/2013 | | Results for this | | THROMBO TIME) | e | 11:01 PM | | procedure are in the | | | | PDT | | results section. | + +--------+ + + + | CBC (HEMOGRAM) ONLY | Routin | 02/28/2013 | | Results for this | | | e | 9:28 PM | | procedure are in the | | | | PDT | | results section. | + +--------+ + + + | CBC ONLY | Routin | 02/28/2013 | | Results for this | | | e | 9:28 PM | | procedure are in the | | | | PDT | | results section. | + +--------+ + + + | POTASSIUM, PLASMA | Routin | 02/28/2013 | | Results for this | | | e | 3:05 PM | | procedure are in the | | | | PDT | | results section. | + +--------+ + + + | TROPONIN I, PLASMA | Routin | 02/28/2013 | | Results for this | | | e | 3:05 PM | | procedure are in the | | | | PDT | | results section. | + +--------+ + + + | APTT (ACT. PART. | Urgent | 02/28/2013 | | Results for this | | THROMBO TIME) | | 3:05 PM | | procedure are in the | | | | PDT | | results section. | + +--------+ + + + | 12 LEAD ECG | Routin | 02/28/2013 | | Results for this | | | e | 8:16 AM | | procedure are in the | | | | PDT | | results section. | + +--------+ + + + | NT-PRO BNP | Routin | 02/28/2013 | | Results for this | | | e | 7:14 AM | | procedure are in the | | | | PDT | | results section. | + +--------+ + + + | CBC (HEMOGRAM) ONLY | Routin | 02/28/2013 | | Results for this | | | e | 7:14 AM | | procedure are in the | | | | PDT | | results section. | + +--------+ + + + | INR | Routin | 02/28/2013 | | Results for this | | | e | 7:14 AM | | procedure are in the | | | | PDT | | results section. | + +--------+ + + + | TROPONIN I, PLASMA | Routin | 02/28/2013 | | Results for this | | | e | 7:14 AM | | procedure are in the | | | | PDT | | results section. | + +--------+ + + + | BASIC METABOLIC SET | Routin | 02/28/2013 | | Results for this | | (NA, K, CL, TCO2, | e | 7:14 AM | | procedure are in the | | BUN, CR, GLU, CA) | | PDT | | results section. | + +--------+ + + + | CBC ONLY | Routin | 02/28/2013 | | Results for this | | | e | 7:14 AM | | procedure are in the | | | | PDT | | results section. | + +--------+ + + + | APTT (ACT. PART. | Routin | 02/28/2013 | | Results for this | | THROMBO TIME) | e | 7:14 AM | | procedure are in the | | | | PDT | | results section. | + +--------+ + + + | MAGNESIUM, PLASMA | Routin | 02/28/2013 | | Results for this | | | e | 7:14 AM | | procedure are in the | | | | PDT | | results section. | + +--------+ + + + | APTT (ACT. PART. | Routin | 02/28/2013 | | Results for this | | THROMBO TIME) | e | 12:45 AM | | procedure are in the | | | | PDT | | results section. | + +--------+ + + + | CARDIOLOGY | | 02/28/2013 | | Results for this | | | | 12:00 AM | | procedure are in the | | | | PDT | | results section. | + +--------+ + + + | TRANSTHORACIC | Routin | 02/28/2013 | | Results for this | | ECHOCARDIOGRAM, | e | 12:00 AM | | procedure are in the | | ADULT | | PDT | | results section. | + +--------+ + + + | TROPONIN I, PLASMA | Routin | 02/27/2013 | | Results for this | | | e | 10:40 PM | | procedure are in the | | | | PDT | | results section. | + +--------+ + + + | CBC AND AUTO DIFF | Routin | 02/27/2013 | | Results for this | | | e | 4:45 PM | | procedure are in the | | | | PDT | | results section. | + +--------+ + + + | INR | Routin | 02/27/2013 | | Results for this | | | e | 4:45 PM | | procedure are in the | | | | PDT | | results section. | + +--------+ + + + | CBC, WITH | Routin | 02/27/2013 | | Results for this | | DIFFERENTIAL | e | 4:45 PM | | procedure are in the | | | | PDT | | results section. | + +--------+ + + + | APTT (ACT. PART. | Urgent | 02/27/2013 | | Results for this | | THROMBO TIME) | | 4:45 PM | | procedure are in the | | | | PDT | | results section. | + +--------+ + + + | TROPONIN I, PLASMA | Routin | 02/27/2013 | | Results for this | | | e | 4:44 PM | | procedure are in the | | | | PDT | | results section. | + +--------+ + + + | COMPLETE METABOLIC | Routin | 02/27/2013 | | Results for this | | SET | e | 4:44 PM | | procedure are in the | | (NA,K,CL,CO2,BUN,CRE | | PDT | | results section. | | AT,GLUC,CA,AST,ALT,B | | | | | | LILLIAN TOTAL,ALK | | | | | | PHOS,ALB,PROT TOTAL) | | | | | + +--------+ + + + | TSH | Routin | 02/27/2013 | | Results for this | | | e | 4:44 PM | | procedure are in the | | | | PDT | | results section. | + +--------+ + + + | LIPID SET (TRIG, T | Routin | 02/27/2013 | | Results for this | | CHOL, HDL, CALC LDL) | e | 4:44 PM | | procedure are in the | | | | PDT | | results section. | + +--------+ + + + | MAGNESIUM, PLASMA | Routin | 02/27/2013 | | Results for this | | | e | 4:44 PM | | procedure are in the | | | | PDT | | results section. | + +--------+ + + + | 12 LEAD ECG | Routin | 02/27/2013 | | Results for this | | | e | 3:58 PM | | procedure are in the | | | | PDT | | results section. | + +--------+ + + + documented in this encounter Results CARDIAC CATH (03/06/2013 11:05 PM PDT) + + | Transcriptions | + + | Amrit Sharma MD - 03/03/2013 6:20 PM PDT PATIENT NAME:Karen BOYCE | | DATA:Height: 162 cmWeight: 72.0 kgBSA: 1.77 m2DATE OF PROCEDURE:February 28, | | 2012MRN:[id number]:1945PHYSICIAN:Amrit Sharma M.D., F.A.C.C.Privacy Attorney | | Professor, MedicineDivision of Cardiovascular MedicineDirector, Cardiac Catheterization | | LaboratoriesFELLOW:Gaby Durham M.D.Interventional FellowDivision of Cardiovascular | | MedicineREFERRING PHYSICIAN:Dimitri Valdez M.D.Professor, MedicineAssociate Chief, | | EducationDivision of Cardiovascular MedicineSUMMARY:1. Severe 3 vessel [place] coronary | | artery disease including 95% stenosis of mid left circumflex2. Patent OLSON to LAD; SVG | | to PDA and SVG to OM3. Successful PCI of mid left circumflex with Xience Xpedition 2.5 x | | 33 mm drug eluting stent with reduction of stenosis from 95% to 0%INDICATIONS AND | | CLINICAL BRIEF:Jennifer Boyce is a 67-year-old woman with a history of coronary | | arterydisease status post coronary artery bypass graft with left internal mammaryartery | | to left anterior descending, saphenous vein graft to obtuse marginaland left | | posterolateral, as well as saphenous vein graft to right coronaryartery. She presented | | with a non-ST elevation myocardial infarction with anelevated troponin.PROCEDURES | | PERFORMED:1. Selective coronary angiography.2. Bypass angiography.3. Percutaneous | | coronary intervention.COMPLICATIONS:None.TECHNIQUE:ACCESS:Right femoral artery, 5 Fr | | sheathRight femoral artery, 6 Fr sheathCATHETERS:5 Fr Shasha left 4 catheter5 Fr | | Shasha right 4 catheter5 Fr KARLOS catheter5 Fr LCB catheter6 Fr XB LAD 3.5 guide | | catheterEagle Eye Gold IVUS catheterWIRE:0.014" x 180-cm [employer] soft wireBALLOON:2.0 x | | 15-mm TREK balloon2.5 x 15-mm TREK NC balloonSTENT:2.5 x 33-mm Xience drug-eluting | | stentPrior to the procedure, risks, benefits and alternatives were discussedwith the | | patient in detail and informed written consent was obtained. Thepatient's questions were | | answered. She was brought to the catheterizationlaboratory. A team pause was performed. | | The right groin was cleaned anddraped in the usual fashion. Anatomic and fluoroscopic | | landmarks wereidentified, and 1% lidocaine was injected locally. Utilizing a 5 | | Frmicropuncture kit and a modified Seldinger technique, a 5 Fr 10-cm Pinnaclesheath was | | placed in the right femoral artery. Activated clotting time wasperformed. A 5 Fr Shasha | | left 4 catheter was advanced to the ascendingaorta over a guidewire. The guidewire was | | removed, and the catheter wasaspirated and flushed, and the left coronary system was | | selectively engagedand imaged in multiple projections. The catheter was removed. A 5 | | FrJudkins right 4 catheter was advanced to the ascending aorta over aguidewire; however | | the right coronary system could not be engaged. Thecatheter was then utilized to engage | | the saphenous vein graft to the rightcoronary artery. The catheter was unable to engage | | the saphenous vein graft to theobtuse marginal. The catheter was pulled back and was | | then utilized toselectively engage the left subclavian. A 0.035" exchange length | | guidewirewas inserted into the subclavian artery and the 5 Fr Shasha right 4catheter | | was exchanged for a 5 Fr KARLOS catheter, which was aspirated andflushed, and the left | | internal mammary artery was selectively engaged andimaged in multiple projections. The | | catheter was then pulled back into thedescending aorta and exchanged over a guidewire | | for a 5 Fr LCB catheter,which was advanced to the ascending aorta over a guidewire. The | | guidewirewas removed, and the catheter was aspirated and flushed, and the saphenousvein | | graft to the obtuse marginal was selectively engaged and imaged inmultiple projections. | | The catheter was then removed. The films were thenreviewed and the culprit vessel was | | felt to be the mid-distal circumflex krystina obtuse marginal. Heparin 1,500 units was then | | administered. Eptifibatidewas continued. The 5 Fr sheath was exchanged for a 6 Fr | | sheath. A 6Fr XB LAD 3.5 guide catheter was advanced over a guidewire. The guidewirewas | | removed, and the catheter was aspirated and flushed, and the left maincoronary artery | | was selectively engaged. A 0.014" x 180-cm Asahi soft wireadvanced to the circumflex and | | the distal obtuse marginal. The 0.014" x180-cm Asahi soft wire was positioned in the | | third obtuse marginal. Overthe wire, a 2.0 x 15-mm TREK NC balloon was inserted into the | | proximal tipof the obtuse marginal. Serial inflations were performed through | | theproximal third obtuse marginal and into the left circumflex. Inflationswere performed | | at 8 atmospheres for 11 seconds, at 8 atmospheres for 22seconds, and 8 atmospheres for | | 5 seconds. The balloon was then removed andfurther angiography was performed. A 2.5 x | | 33-mm Xience Xpeditiondrug-eluting stent was inserted with the proximal tip positioned | | at theproximal edge of the lesion. The stent was deployed at 14 atmospheres for21 | | seconds. The stent balloon was then pulled back slightly and furtherinflations were | | performed at 14 atmospheres for 16 seconds. Intracoronarynitroglycerin was administered. | | The stent was then evaluated with an nuMVC IVUS catheter. The stent was felt to | | be under-deployed, especiallyin the distal area. Post dilation of the distal stent was | | conducted with a2.5 x 15-mm TREK NC balloon at 12 atmospheres for 15 seconds. The | | balloonwas the pulled back to the mid stent and inflated at 16 atmospheres for 16seconds | | and in the proximal stent for 16 atmospheres for 16 seconds. Theballoon was then | | removed and final angiography was performed without theballoon and the coronary wire. | | The patient was transferred to the bed andtransported to the ICU.CONTRAST:Omnipaque 150 | | mLFLUOROSCOPY TIME:22.10 minutesFLUOROSCOPY DAP:9,673.0 cGy [id number]:Eptifibatide | | dripClopidogrel 600 mg IVFentanyl 75 mcg IVHeparin 1,500 units IVMidazolam 2 mg | | IVNitroglycerin 200 mcg ICHEMODYNAMIC DATA:Aortic pressure: 95/53 mmHg, mean | | 69Heart rate: 61 beats per minuteCORONARY ANGIOGRAPHY:The left main coronary artery | | originates from the left coronary cusp. Itgives rise to left anterior descending and | | left circumflex coronaryarteries. There is no significant disease.The left anterior | | descending coronary artery is a large-caliber vessel.There is 100% occlusion after the | | second diagonal. The first diagonal is asmall vessel and the second diagonal is a | | moderate-sized vessel with nosignificant disease.The left circumflex coronary artery is | | a large-caliber vessel proximally.It gives rise to a small first obtuse marginal and a | | moderate-sized secondobtuse marginal. The third obtuse marginal is a moderate-caliber | | vessel.The mid circumflex after the second obtuse marginal has a 95% long 30-mmstenosis, | | type C, with JUAN 3 flow. There is a saphenous vein graft withcompetitive flow noted | | off the second obtuse marginal. The left circumflexlikely has a thrombus.The right | | coronary artery was not viewed, but there is probably 100%stenosis given retrograde flow | | from the saphenous vein graft.GRAFT ANGIOGRAPHY:The saphenous vein graft to the right | | coronary artery attaches to theposterior descending artery. There is no significant | | disease in thesaphenous vein graft, except in the proximal segment.The left internal | | mammary artery is a moderate-caliber vessel that feedsthe mid to distal left anterior | | descending without significant disease.The saphenous vein graft to the second obtuse | | marginal is a small graftwith luminal irregularities and a 30% mid graft | | stenosis.PERCUTANEOUS CORONARY INTERVENTION:Percutaneous coronary intervention was | | performed with a 2.0 x 15-mm TREKballoon. Following this, a 2.5 x 33-mm Xience Xpedition | | drug-eluting stentwas inserted in the mid circumflex with the distal tip in the third | | obtusemarginal. The stent was felt to be under-deployed after intravascularultrasound. | | It was post dilated with a 2.5 x 15-mm TREK NC balloon at 12atmospheres in the distal | | part and 16 atmospheres in the proximal and midpart, with 95% long 30-mm stenosis, type | | C, with JUAN 3 flow with areduction to 0% stenosis and JUAN 3 flow.INTRAVASCULAR | | ULTRASOUND:Intravascular ultrasound showed the distal stent was under-deployed and | | theproximal stent was slightly under-deployed as well. There was no dissectionNoted. | | Based on these findings further post-dilatation was performed as noted above.CLINICAL | | DISPOSITION:1. Usual post catheterization care.2. Transfer to [facility]. Sheath to be | | withdrawn once PTT is less than 50.3. Clopidogrel 600 mg was administered in the | | Cardiac CatheterizationLaboratory and should be continued for one year at 75 mg daily.4. | | Continue aspirin indefinitely.5. Further care per CCU team.Gaby Durham | | StephonInterventional FellowDivision of Cardiovascular MedicineATTENDING SURGEON'S | | ATTESTATION:Pursuant to Federal Medicare Requirements, I certify that Amrit | | Stephon Sharma, F.A.C.C. was present for the entire procedure, performed theintervention and | | participated directly in the generation of this report.Amrit Sharma M.D., | | AuryCut Off Saw Operator Metal, MedicineDipiedmont fayette hospitalion of Cardiovascular MedicineDirector, | | Cardiac Catheterization [facility]: 02/28/2013T: 03/03/2013 6:20 [id number] | |reviewed and the culprit vessel was felt to be the mid-distal circumflex to | |an obtuse marginal. Heparin 1,500 units was then administered. Eptifibatide | |was continued. The 5 Fr sheath was exchanged for a 6 Fr sheath. A 6 | |Fr XB LAD 3.5 guide catheter was advanced over a guidewire. The guidewire | |was removed, and the catheter was aspirated and flushed, and the left main | |coronary artery was selectively engaged. A 0.014" x 180-cm Asahi soft wire | |advanced to the circumflex and the distal obtuse marginal. The 0.014" x | |180-cm Asahi soft wire was positioned in the third obtuse marginal. Over | |the wire, a 2.0 x 15-mm TREK NC balloon was inserted into the proximal tip | |of the obtuse marginal. Serial inflations were performed through the | |proximal third obtuse marginal and into the left circumflex. Inflations | |were performed at 8 atmospheres for 11 seconds, at 8 atmospheres for 22 | |seconds, and 8 atmospheres for 5 seconds. The balloon was then removed and | |further angiography was performed. A 2.5 x 33-mm Xience Xpedition | |drug-eluting stent was inserted with the proximal tip positioned at the | |proximal edge of the lesion. The stent was deployed at 14 atmospheres for | |21 seconds. The stent balloon was then pulled back slightly and further | |inflations were performed at 14 atmospheres for 16 seconds. Intracoronary | |nitroglycerin was administered. The stent was then evaluated with an [employer] | |Eye Gold IVUS catheter. The stent was felt to be under-deployed, especially | |in the distal area. Post dilation of the distal stent was conducted with a | |2.5 x 15-mm TREK NC balloon at 12 atmospheres for 15 seconds. The balloon | |was the pulled back to the mid stent and inflated at 16 atmospheres for 16 | |seconds and in the proximal stent for 16 atmospheres for 16 seconds. The | |balloon was then removed and final angiography was performed without the | |balloon and the coronary wire. The patient was transferred to the bed and | |transported to the ICU. | | | |CONTRAST: | |Omnipaque 150 mL | | | |FLUOROSCOPY TIME: | |22.10 minutes | | | |FLUOROSCOPY DAP: | |9,673.0 cGy cm2 | | | |MEDICATIONS: | |Eptifibatide drip | |Clopidogrel 600 mg IV | |Fentanyl 75 mcg IV | |Heparin 1,500 units IV | |Midazolam 2 mg IV | |Nitroglycerin 200 mcg IC | | | |HEMODYNAMIC DATA: | |Aortic pressure: 95/53 mmHg, mean 69 | |Heart rate: 61 beats per minute | | | |CORONARY ANGIOGRAPHY: | |The left main coronary artery originates from the left coronary cusp. It | |gives rise to left anterior descending and left circumflex coronary | |arteries. There is no significant disease. | | | |The left anterior descending coronary artery is a large-caliber vessel. | |There is 100% occlusion after the second diagonal. The first diagonal is a | |small vessel and the second diagonal is a moderate-sized vessel with no | |significant disease. | | | |The left circumflex coronary artery is a large-caliber vessel proximally. | |It gives rise to a small first obtuse marginal and a moderate-sized second | |obtuse marginal. The third obtuse marginal is a moderate-caliber vessel. | |The mid circumflex after the second obtuse marginal has a 95% long 30-mm | |stenosis, type C, with JUAN 3 flow. There is a saphenous vein graft with | |competitive flow noted off the second obtuse marginal. The left circumflex | |likely has a thrombus. | | | |The right coronary artery was not viewed, but there is probably 100% | |stenosis given retrograde flow from the saphenous vein graft. | | | |GRAFT ANGIOGRAPHY: | |The saphenous vein graft to the right coronary artery attaches to the | |posterior descending artery. There is no significant disease in the | |saphenous vein graft, except in the proximal segment. | | | |The left internal mammary artery is a moderate-caliber vessel that feeds | |the mid to distal left anterior descending without significant disease. | | | |The saphenous vein graft to the second obtuse marginal is a small graft | |with luminal irregularities and a 30% mid graft stenosis. | | | |PERCUTANEOUS CORONARY INTERVENTION: | |Percutaneous coronary intervention was performed with a 2.0 x 15-mm TREK | |balloon. Following this, a 2.5 x 33-mm Xience Xpedition drug-eluting stent | |was inserted in the mid circumflex with the distal tip in the third obtuse | |marginal. The stent was felt to be under-deployed after intravascular | |ultrasound. It was post dilated with a 2.5 x 15-mm TREK NC balloon at 12 | |atmospheres in the distal part and 16 atmospheres in the proximal and mid | |part, with 95% long 30-mm stenosis, type C, with JUAN 3 flow with a | |reduction to 0% stenosis and JUAN 3 flow. | | | |INTRAVASCULAR ULTRASOUND: | |Intravascular ultrasound showed the distal stent was under-deployed and the | |proximal stent was slightly under-deployed as well. There was no dissection | |Noted. Based on these findings further post-dilatation was performed as noted above. | | | |CLINICAL DISPOSITION: | |1. Usual post catheterization care. | |2. Transfer to [facility]. Sheath to be withdrawn once PTT is less than 50. | |3. Clopidogrel 600 mg was administered in the Cardiac Catheterization | |Laboratory and should be continued for one year at 75 mg daily. | |4. Continue aspirin indefinitely. | |5. Further care per CCU team. | | | |Gaby Durham M.D. | |Interventional Fellow | |Division of Cardiovascular Medicine | | | |ATTENDING SURGEON'S ATTESTATION: | |Pursuant to Federal Medicare Requirements, I certify that Amrit Sharma | |Stephon, Aury was present for the entire procedure, performed the | |intervention and participated directly in the generation of this report. | | | |Amrit Sharma M.D., Aury | |Cut [employer] Saw Operator Metal, Medicine | |Division of Cardiovascular Medicine | |Director, [facility] | | | |CLOTILDE/sunny | | | | P | |[phone] | + + CBC (HEMOGRAM) ONLY (03/02/2013 6:57 AM PDT) + + + + + + | Component | Value | Ref Range | Performed | Pathologist | | | | | At | Signature | + + + + + + | WHITE CELL | 6.94 | 4.40 - 11.00 | [facility] | | | COUNT | | K/cu mm | LABORATORY | | | | | | SERVICES, | | | | | | CORE | | + + + + + + | RED CELL | 5.02 | 4.00 - 5.20 | [facility] | | | COUNT | | M/cu mm | LABORATORY | | | | | | SERVICES, | | | | | | CORE | | + + + + + + | HEMOGLOBIN | 15.0 | 12.0 - 16.0 | [facility] | | | | | g/dL | LABORATORY | | | | | | SERVICES, | | | | | | CORE | | + + + + + + | HEMATOCRIT | 47.4 (H) | 36.0 - 46.0 % | [facility] | | | | | | LABORATORY | | | | | | SERVICES, | | | | | | CORE | | + + + + + + | MCV | 94.4 | 80.0 - 96.0 fL | [facility] | | | | | | LABORATORY | | | | | | SERVICES, | | | | | | CORE | | + + + + + + | MCHC | 31.6 (L) | 33.0 - 35.5 | [facility] | | | | | g/dL | LABORATORY | | | | | | SERVICES, | | | | | | CORE | | + + + + + + | RDW SD | 48.4 (H) | 35.1 - 46.3 fL | [facility] | | | | | | LABORATORY | | | | | | SERVICES, | | | | | | CORE | | + + + + + + | PLATELET | 202 | 150 - 400 K/cu | [facility] | | | COUNT | | mm | LABORATORY | | | | | | SERVICES, | | | | | | CORE | | + + + + + + | MPV | 11.4 | 9.7 - 12.3 fL | [facility] | | | | | | LABORATORY | | | | | | SERVICES, | | | | | | CORE | | + + + + + + | NRBC% | 0.0 | 0.0 - 0.3 % | [facility] | | | | | | LABORATORY | | | | | | SERVICES, | | | | | | CORE | | + + + + + + | NRBC# | 0.00 | 0.00 - 0.02 | [facility] | | | | | K/cu mm | LABORATORY | | | | | | SERVICES, | | | | | | CORE | | + + + + + + + + | Specimen | + + | Blood - Blood | + + + + + | Narrative | Performed At | + + + | New methodology and reference ranges for some CBC/Differential | [facility] | | analytes in effect on 01/04/13. | LABORATORY | | | SERVICES, CORE | + + + + + + + + | Performing | Address | City/State/Zipcode | Phone Number | | Organization | | | | + + + + + | [facility] | [address] | [place] [address] | | | SERVICES, CORE | [address] | | | + + + + + INR (03/02/2013 6:57 AM PDT) + +-------+ + + + | Component | Value | Ref Range | Performed | Pathologist | | | | | At | Signature | + +-------+ + + + | INR | 0.98 | 0.90 - 1.20 INR | [facility] | | | | | | LABORATORY | | | | | | SERVICES, | | | | | | CORE | | + +-------+ + + + + + | Specimen | + + | Blood - Blood | + + + + + | Narrative | Performed At | + + + | INR Therapeutic ranges for full anticoagulation: INR for | [facility] | | Venous Thromboembolism (2.0 - 3.0) INR INR | LABORATORY | | for most patients with mech. valves (2.5 - 3.5) INR | SERVICES, CORE | + + + + + + + + | Performing | Address | City/State/Zipcode | Phone Number | | Organization | | | | + + + + + | [facility] | [address] | [place] [address] | | | SERVICES, CORE | [address] | | | + + + + + BASIC METABOLIC SET (NA, K, CL, TCO2, BUN, CR, GLU, CA) (03/02/2013 6:57 AM PDT) + +---------+ + + + | Component | Value | Ref Range | Performed | Pathologist | | | | | At | Signature | + +---------+ + + + | GLUCOSE, | 94 | 60 - 99 mg/dL | [facility] | | | PLASMA | | | LABORATORY | | | (LAB) | | | SERVICES, | | | | | | CORE | | + +---------+ + + + | BUN, PLASMA | 18 | 6 - 20 mg/dL | [facility] | | | (LAB) | | | LABORATORY | | | | | | SERVICES, | | | | | | CORE | | + +---------+ + + + | CREATININE | 0.90 | 0.60 - 1.10 | [facility] | | | PLASMA | | mg/dL | LABORATORY | | | (LAB) | | | SERVICES, | | | | | | CORE | | + +---------+ + + + | EGFR | >60 | >60 mL/min | [facility] | | | - | | | LABORATORY | | | LAO | | | SERVICES, | | | | | | CORE | | + +---------+ + + + | EGFR NON | >60 | >60 mL/min | [facility] | | | -SAM | | | LABORATORY | | | RICAN | | | SERVICES, | | | | | | CORE | | + +---------+ + + + | SODIUM, | 138 | 136 - 145 | [facility] | | | PLASMA | | mmol/L | LABORATORY | | | (LAB) | | | SERVICES, | | | | | | CORE | | + +---------+ + + + | POTASSIUM, | 3.9 | 3.4 - 5.0 | [facility] | | | PLASMA | | mmol/L | LABORATORY | | | (LAB) | | | SERVICES, | | | | | | CORE | | + +---------+ + + + | CHLORIDE, | 99 | 97 - 108 mmol/L | [facility] | | | PLASMA | | | LABORATORY | | | (LAB) | | | SERVICES, | | | | | | CORE | | + +---------+ + + + | TOTAL CO2, | 31 | 21 - 32 mmol/L | [facility] | | | PLASMA | | | LABORATORY | | | (LAB) | | | SERVICES, | | | | | | CORE | | + +---------+ + + + | CALCIUM, | 9.0 | 8.6 - 10.2 | [facility] | | | PLASMA | | mg/dL | LABORATORY | | | (LAB) | | | SERVICES, | | | | | | CORE | | + +---------+ + + + | ANION GAP | 8 | mmol/L | [facility] | | | | | | LABORATORY | | | | | | SERVICES, | | | | | | CORE | | + +---------+ + + + | POTASSIUM | No Hemo | | [facility] | | | CMNT | | | LABORATORY | | | | | | SERVICES, | | | | | | CORE | | + +---------+ + + + + + | Specimen | + + | Blood - Blood | + + + + + | Narrative | Performed At | + + + | GFR is estimated using the MDRD equation recommended by the | [facility] | | National Kidney Disease Education Program. Estimated GFR | LABORATORY | | Interpretive Information: <60 mL/min/1.73 sq | SERVICES, CORE | | m Chronic Kidney Disease <15 mL/min/1.73 | | | sq m Kidney Failure Estimated GFR greater | | | that 60 mL/min/1.73 sq m is of limited clinical value. The MDRD | | | equation is not valid in the following situations: - Patients under | | | 18 years of age - Severe malnutrition or obesity - Vegetarian diet | | | - Rapidly changing kidney function | | + + + + + + + + | Performing | Address | City/State/Zipcode | Phone Number | | Organization | | | | + + + + + | [facility] | [address] | [place] [address] | | | SERVICES, [facility] | [address] | | | + + + + + CAPILLARY BLOOD GLUCOSE (NO CHG), POC (03/01/2013 1:34 PM PDT) + +---------+ + + + | Component | Value | Ref Range | Performed | Pathologist | | | | | At | Signature | + +---------+ + + + | BLOOD | 118 (H) | 60 - 99 mg/dL | [facility] | | | GLUCOSE, | | | [facility] | | | POC | | | [facility] | | | | | | OF CARE | | | | | | TESTS | | + +---------+ + + + + + | Specimen | + + | | + + + + + + + | Performing | Address | City/State/Zipcode | Phone Number | | Organization | | | | + + + + + | [facility] | [address] | [place], [place] | | | [facility] | [address] | [address] | | | TESTS | | | | + + + + + CAPILLARY BLOOD GLUCOSE (NO CHG), POC (03/01/2013 8:52 AM PDT) + +---------+ + + + | Component | Value | Ref Range | Performed | Pathologist | | | | | At | Signature | + +---------+ + + + | BLOOD | 117 (H) | 60 - 99 mg/dL | [facility] - | | | GLUCOSE, | | | [facility] | | | POC | | | [facility] | | | | | | OF CARE | | | | | | TESTS | | + +---------+ + + + + + | Specimen | + + | | + + + + + + + | Performing | Address | City/State/Zipcode | Phone Number | | Organization | | | | + + + + + | [facility] | [address] | [place], [place] | | | [facility] | [address] | [address] | | | TESTS | | | | + + + + + CBC (HEMOGRAM) ONLY (03/01/2013 6:14 AM PDT) + + + + + + | Component | Value | Ref Range | Performed | Pathologist | | | | | At | Signature | + + + + + + | WHITE CELL | 6.87 | 4.40 - 11.00 | [facility] | | | COUNT | | K/cu mm | LABORATORY | | | | | | SERVICES, | | | | | | CORE | | + + + + + + | RED CELL | 4.41 | 4.00 - 5.20 | [facility] | | | COUNT | | M/cu mm | LABORATORY | | | | | | SERVICES, | | | | | | CORE | | + + + + + + | HEMOGLOBIN | 13.0 | 12.0 - 16.0 | [facility] | | | | | g/dL | LABORATORY | | | | | | SERVICES, | | | | | | CORE | | + + + + + + | HEMATOCRIT | 42.1 | 36.0 - 46.0 % | [facility] | | | | | | LABORATORY | | | | | | SERVICES, | | | | | | CORE | | + + + + + + | MCV | 95.5 | 80.0 - 96.0 fL | [facility] | | | | | | LABORATORY | | | | | | SERVICES, | | | | | | CORE | | + + + + + + | MCHC | 30.9 (L) | 33.0 - 35.5 | [facility] | | | | | g/dL | LABORATORY | | | | | | SERVICES, | | | | | | CORE | | + + + + + + | RDW SD | 50.1 (H) | 35.1 - 46.3 fL | [facility] | | | | | | LABORATORY | | | | | | SERVICES, | | | | | | CORE | | + + + + + + | PLATELET | 204 | 150 - 400 K/cu | [facility] | | | COUNT | | mm | LABORATORY | | | | | | SERVICES, | | | | | | CORE | | + + + + + + | MPV | 11.5 | 9.7 - 12.3 fL | [facility] | | | | | | LABORATORY | | | | | | SERVICES, | | | | | | CORE | | + + + + + + | NRBC% | 0.0 | 0.0 - 0.3 % | [facility] | | | | | | LABORATORY | | | | | | SERVICES, | | | | | | CORE | | + + + + + + | NRBC# | 0.00 | 0.00 - 0.02 | [facility] | | | | | K/cu mm | LABORATORY | | | | | | SERVICES, | | | | | | CORE | | + + + + + + + + | Specimen | + + | Blood - Blood | + + + + + | Narrative | Performed At | + + + | New methodology and reference ranges for some CBC/Differential | [facility] | | analytes in effect on 01/04/13. | LABORATORY | | | [facility] | + + + + + + + + | Performing | Address | City/State/Zipcode | Phone Number | | Organization | | | | + + + + + | [facility] | [address] | [place] [address] | | | SERVICES, [place] | [address] | | | + + + + + TROPONIN I, PLASMA (03/01/2013 6:14 AM PDT) + + + + + + | Component | Value | Ref Range | Performed | Pathologist | | | | | At | Signature | + + + + + + | TROPONIN I | 3.25 (H) | <0.80 ng/mL | [facility] | | | | | | LABORATORY | | | | | | SERVICES, | | | | | | CORE | | + + + + + + + + | Specimen | + + | Blood - Blood | + + + + + + + | Performing | Address | City/State/Zipcode | Phone Number | | Organization | | | | + + + + + | [facility] | [address] | [place] [address] | | | SERVICES, CORE | [address] | | | + + + + + INR (03/01/2013 6:14 AM PDT) + +-------+ + + + | Component | Value | Ref Range | Performed | Pathologist | | | | | At | Signature | + +-------+ + + + | INR | 1.01 | 0.90 - 1.20 INR | [facility] | | | | | | LABORATORY | | | | | | SERVICES, | | | | | | CORE | | + +-------+ + + + + + | Specimen | + + | Blood - Blood | + + + + + | Narrative | Performed At | + + + | INR Therapeutic ranges for full anticoagulation: INR for | [facility] | | Venous Thromboembolism (2.0 - 3.0) INR INR | LABORATORY | | for most patients with mech. valves (2.5 - 3.5) INR | SERVICES, CORE | + + + + + + + + | Performing | Address | City/State/Zipcode | Phone Number | | Organization | | | | + + + + + | [facility] | [address] | [place] [address] | | | SERVICES, CORE | [address] | | | + + + + + BASIC METABOLIC SET (NA, K, CL, TCO2, BUN, CR, GLU, CA) (03/01/2013 6:14 AM PDT) + +---------+ + + + | Component | Value | Ref Range | Performed | Pathologist | | | | | At | Signature | + +---------+ + + + | GLUCOSE, | 111 (H) | 60 - 99 mg/dL | [facility] | | | PLASMA | | | LABORATORY | | | (LAB) | | | SERVICES, | | | | | | CORE | | + +---------+ + + + | BUN, PLASMA | 15 | 6 - 20 mg/dL | [facility] | | | (LAB) | | | LABORATORY | | | | | | SERVICES, | | | | | | CORE | | + +---------+ + + + | CREATININE | 0.95 | 0.60 - 1.10 | [facility] | | | PLASMA | | mg/dL | LABORATORY | | | (LAB) | | | SERVICES, | | | | | | CORE | | + +---------+ + + + | EGFR | >60 | >60 mL/min | [facility] | | | - | | | LABORATORY | | | LAO | | | SERVICES, | | | | | | CORE | | + +---------+ + + + | EGFR NON | 59 (L) | >60 mL/min | [facility] | | | -SAM | | | LABORATORY | | | RICAN | | | SERVICES, | | | | | | CORE | | + +---------+ + + + | SODIUM, | 141 | 136 - 145 | [facility] | | | PLASMA | | mmol/L | LABORATORY | | | (LAB) | | | SERVICES, | | | | | | CORE | | + +---------+ + + + | POTASSIUM, | 4.1 | 3.4 - 5.0 | [facility] | | | PLASMA | | mmol/L | LABORATORY | | | (LAB) | | | SERVICES, | | | | | | CORE | | + +---------+ + + + | CHLORIDE, | 103 | 97 - 108 mmol/L | [facility] | | | PLASMA | | | LABORATORY | | | (LAB) | | | SERVICES, | | | | | | CORE | | + +---------+ + + + | TOTAL CO2, | 27 | 21 - 32 mmol/L | [facility] | | | PLASMA | | | LABORATORY | | | (LAB) | | | SERVICES, | | | | | | CORE | | + +---------+ + + + | CALCIUM, | 8.6 | 8.6 - 10.2 | [facility] | | | PLASMA | | mg/dL | LABORATORY | | | (LAB) | | | SERVICES, | | | | | | CORE | | + +---------+ + + + | ANION GAP | 11 | mmol/L | [facility] | | | | | | LABORATORY | | | | | | SERVICES, | | | | | | CORE | | + +---------+ + + + | POTASSIUM | No Hemo | | [facility] | | | CMNT | | | LABORATORY | | | | | | SERVICES, | | | | | | CORE | | + +---------+ + + + + + | Specimen | + + | Blood - Blood | + + + + + | Narrative | Performed At | + + + | GFR is estimated using the MDRD equation recommended by the | [facility] | | National Kidney Disease Education Program. Estimated GFR | LABORATORY | | Interpretive Information: <60 mL/min/1.73 sq | [facility] | | m Chronic Kidney Disease <15 mL/min/1.73 | | | sq m Kidney Failure Estimated GFR greater | | | that 60 mL/min/1.73 sq m is of limited clinical value. The MDRD | | | equation is not valid in the following situations: - Patients under | | | 18 years of age - Severe malnutrition or obesity - Vegetarian diet | | | - Rapidly changing kidney function | | + + + + + + + + | Performing | Address | City/State/Zipcode | Phone Number | | Organization | | | | + + + + + | [facility] | [address] | [place] [address] | | | [facility] | [address] | | | + + + + + 12 LEAD ECG (03/01/2013 6:11 AM PDT) + + + + + + | Component | Value | Ref Range | Performed | Pathologist | | | | | At | Signature | + + + + + + | VENTRICULAR | 69 | BPM | [facility] | | | RATE | | | OF | | | | | | CARDIOLOGY | | + + + + + + | ATRIAL RATE | 69 | BPM | [facility] | | | | | | OF | | | | | | CARDIOLOGY | | + + + + + + | P-R | 178 | ms | [facility] | | | INTERVAL | | | OF | | | | | | CARDIOLOGY | | + + + + + + | QRS | 96 | ms | [facility] | | | DURATION | | | OF | | | | | | CARDIOLOGY | | + + + + + + | QT | 448 | ms | [facility] | | | | | | OF | | | | | | CARDIOLOGY | | + + + + + + | QTC | 480 | ms | [facility] | | | | | | OF | | | | | | CARDIOLOGY | | + + + + + + | P AXIS | 36 | degrees | [facility] | | | | | | OF | | | | | | CARDIOLOGY | | + + + + + + | R AXIS | 51 | degrees | [facility] | | | | | | OF | | | | | | CARDIOLOGY | | + + + + + + | T AXIS | 137 | degrees | [facility] | | | | | | OF | | | | | | CARDIOLOGY | | + + + + + + | EKG | Normal sinus rhythmLow | | [facility] | | | DIAGNOSIS | voltage QRSCannot rule | | OF | | | | out Anterior infarct , | | CARDIOLOGY | | | | age undeterminedT wave | | | | | | abnormality, consider | | | | | | lateral ischemiaAbnormal | | | | | | ECGConfirmed by | | | | | | FRANNY VELAZQUEZ | | | | | | ([id number]) on 03/01/2013 | | | | | | 6:31:43 PM | | | | + + + + + + + + | Specimen | + + | | + + + + + | Narrative | Performed At | + + + | Please click | [facility] | | on view image for the detailed interpretation from [employer] results. | CARDIOLOGY | + + + + + | Procedure Note | + + | Interface, Cardiology Results - 03/01/2013 6:32 PM PDT Please click on view image | | for the detailed interpretation from [employer] results. | + + + + + + + | Performing | Address | City/State/Zipcode | Phone Number | | Organization | | | | + + + + + | [facility] | [address] | [place], [place] | | | CARDIOLOGY | [address] | [address] | | + + + + + 12 LEAD ECG (03/01/2013 12:11 AM PDT) + + + + + + | Component | Value | Ref Range | Performed | Pathologist | | | | | At | Signature | + + + + + + | VENTRICULAR | 69 | BPM | [facility] | | | RATE | | | OF | | | | | | CARDIOLOGY | | + + + + + + | ATRIAL RATE | 69 | BPM | [facility] | | | | | | OF | | | | | | CARDIOLOGY | | + + + + + + | P-R | 174 | ms | [facility] | | | INTERVAL | | | OF | | | | | | CARDIOLOGY | | + + + + + + | QRS | 94 | ms | [facility] | | | DURATION | | | OF | | | | | | CARDIOLOGY | | + + + + + + | QT | 468 | ms | [facility] | | | | | | OF | | | | | | CARDIOLOGY | | + + + + + + | QTC | 501 | ms | [facility] | | | | | | OF | | | | | | CARDIOLOGY | | + + + + + + | P AXIS | 67 | degrees | [facility] | | | | | | OF | | | | | | CARDIOLOGY | | + + + + + + | R AXIS | 59 | degrees | [facility] | | | | | | OF | | | | | | CARDIOLOGY | | + + + + + + | T AXIS | 123 | degrees | [facility] | | | | | | OF | | | | | | CARDIOLOGY | | + + + + + + | EKG | Normal sinus | | [facility] | | | DIAGNOSIS | rhythmPossible Left | | OF | | | | atrial enlargementSeptal | | CARDIOLOGY | | | | infarct , age | | | | | | undeterminedT wave | | | | | | abnormality, consider | | | | | | anterolateral | | | | | | ischemiaAbnormal | | | | | | ECGConfirmed by | | | | | | FRANNY VELAZQUEZ | | | | | | ([id number]) on 03/01/2013 | | | | | | 6:30:50 PM | | | | + + + + + + + + | Specimen | + + | | + + + + + | Narrative | Performed At | + + + | Please click | [facility] | | on view image for the detailed interpretation from [employer] results. | CARDIOLOGY | + + + + + | Procedure Note | + + | Interface, Cardiology Results - 03/01/2013 6:31 PM PDT Please click on view image | | for the detailed interpretation from [employer] results. | + + + + + + + | Performing | Address | City/State/Zipcode | Phone Number | | Organization | | | | + + + + + | [facility] | [address] | [place], [place] | | | CARDIOLOGY | [address] | [address] | | + + + + + CAPILLARY BLOOD GLUCOSE (NO CHG), POC (02/28/2013 11:14 PM PDT) + +-------+ + + + | Component | Value | Ref Range | Performed | Pathologist | | | | | At | Signature | + +-------+ + + + | BLOOD | 95 | 60 - 99 mg/dL | [facility] - | | | GLUCOSE, | | | [facility] | | | POC | | | [facility] | | | | | | OF CARE | | | | | | TESTS | | + +-------+ + + + + + | Specimen | + + | | + + + + + + + | Performing | Address | City/State/Zipcode | Phone Number | | Organization | | | | + + + + + | [facility] | [address] | [place], [place] | | | [facility] | [address] | [phone] | | | TESTS | | | | + + + + + APTT (ACT. PART. THROMBO TIME) (02/28/2013 11:01 PM PDT) + +-------+ + + + | Component | Value | Ref Range | Performed | Pathologist | | | | | At | Signature | + +-------+ + + + | APTT | 31.2 | 26.0 - 36.0 | [facility] | | | | | seconds | LABORATORY | | | | | | SERVICES, | | | | | | CORE | | + +-------+ + + + + + | Specimen | + + | Blood - Blood | + + + + + | Narrative | Performed At | + + + | APTT Therapeutic | [facility] | | Range: (75 - 120) sec | LABORATORY | | Heparin levels of 0.35 - 0.7 U/mL | SERVICES, CORE | + + + + + + + + | Performing | Address | City/State/Zipcode | Phone Number | | Organization | | | | + + + + + | [facility] | [address] | [place] [address] | | | SERVICES, CORE | [address] | | | + + + + + TROPONIN I, PLASMA (02/28/2013 11:01 PM PDT) + + + + + + | Component | Value | Ref Range | Performed | Pathologist | | | | | At | Signature | + + + + + + | TROPONIN I | 4.47 (H) | <0.80 ng/mL | [facility] | | | | | | LABORATORY | | | | | | SERVICES, | | | | | | CORE | | + + + + + + + + | Specimen | + + | Blood - Blood | + + + + + | Narrative | Performed At | + + + | 3 hours after arrival to unit and in AM | [facility] | | | LABORATORY | | | SERVICES, CORE | + + + + + + + + | Performing | Address | City/State/Zipcode | Phone Number | | Organization | | | | + + + + + | [facility] | [address] | [place] [address] | | | SERVICES, CORE | [address] | | | + + + + + BASIC METABOLIC SET (NA, K, CL, TCO2, BUN, CR, GLU, CA) (02/28/2013 11:01 PM PDT) + +---------+ + + + | Component | Value | Ref Range | Performed | Pathologist | | | | | At | Signature | + +---------+ + + + | GLUCOSE, | 91 | 60 - 99 mg/dL | [facility] | | | PLASMA | | | LABORATORY | | | (LAB) | | | SERVICES, | | | | | | CORE | | + +---------+ + + + | BUN, PLASMA | 16 | 6 - 20 mg/dL | [facility] | | | (LAB) | | | LABORATORY | | | | | | SERVICES, | | | | | | CORE | | + +---------+ + + + | CREATININE | 0.81 | 0.60 - 1.10 | [facility] | | | PLASMA | | mg/dL | LABORATORY | | | (LAB) | | | SERVICES, | | | | | | CORE | | + +---------+ + + + | EGFR | >60 | >60 mL/min | [facility] | | | - | | | LABORATORY | | | LAO | | | SERVICES, | | | | | | CORE | | + +---------+ + + + | EGFR NON | >60 | >60 mL/min | [facility] | | | -SAM | | | LABORATORY | | | RICAN | | | SERVICES, | | | | | | CORE | | + +---------+ + + + | SODIUM, | 139 | 136 - 145 | [facility] | | | PLASMA | | mmol/L | LABORATORY | | | (LAB) | | | SERVICES, | | | | | | CORE | | + +---------+ + + + | POTASSIUM, | 3.8 | 3.4 - 5.0 | [facility] | | | PLASMA | | mmol/L | LABORATORY | | | (LAB) | | | SERVICES, | | | | | | CORE | | + +---------+ + + + | CHLORIDE, | 100 | 97 - 108 mmol/L | [facility] | | | PLASMA | | | LABORATORY | | | (LAB) | | | SERVICES, | | | | | | CORE | | + +---------+ + + + | TOTAL CO2, | 29 | 21 - 32 mmol/L | [facility] | | | PLASMA | | | LABORATORY | | | (LAB) | | | SERVICES, | | | | | | CORE | | + +---------+ + + + | CALCIUM, | 8.5 (L) | 8.6 - 10.2 | [facility] | | | PLASMA | | mg/dL | LABORATORY | | | (LAB) | | | SERVICES, | | | | | | CORE | | + +---------+ + + + | ANION GAP | 10 | mmol/L | [facility] | | | | | | LABORATORY | | | | | | SERVICES, | | | | | | CORE | | + +---------+ + + + | POTASSIUM | No Hemo | | [facility] | | | [facility] | | | LABORATORY | | | | | | SERVICES, | | | | | | CORE | | + +---------+ + + + + + | Specimen | + + | Blood - Blood | + + + + + | Narrative | Performed At | + + + | 3 hours after arrival to unit and in AM GFR is estimated using the | [facility] | | MDRD equation recommended by the National Kidney Disease Education | LABORATORY | | Program. Estimated GFR Interpretive Information: <60 mL/min/1.73 | SERVICES, CORE | | sq m Chronic Kidney Disease <15 | | | mL/min/1.73 sq m Kidney Failure Estimated | | | GFR greater that 60 mL/min/1.73 sq m is of limited clinical value. | | | The MDRD equation is not valid in the following situations: - | | | Patients under 18 years of age - Severe malnutrition or obesity - | | | Vegetarian diet - Rapidly changing kidney function | | + + + + + + + + | Performing | Address | City/State/Zipcode | Phone Number | | Organization | | | | + + + + + | [facility] | [address] | [place] [address] | | | SERVICES, CORE | [address] | | | + + + + + CBC (HEMOGRAM) ONLY (02/28/2013 9:28 PM PDT) + + + + + + | Component | Value | Ref Range | Performed | Pathologist | | | | | At | Signature | + + + + + + | WHITE CELL | 5.85 | 4.40 - 11.00 | [facility] | | | COUNT | | K/cu mm | LABORATORY | | | | | | SERVICES, | | | | | | CORE | | + + + + + + | RED CELL | 4.38 | 4.00 - 5.20 | [facility] | | | COUNT | | M/cu mm | LABORATORY | | | | | | SERVICES, | | | | | | CORE | | + + + + + + | HEMOGLOBIN | 13.1 | 12.0 - 16.0 | [facility] | | | | | g/dL | LABORATORY | | | | | | SERVICES, | | | | | | CORE | | + + + + + + | HEMATOCRIT | 40.9 | 36.0 - 46.0 % | [facility] | | | | | | LABORATORY | | | | | | SERVICES, | | | | | | CORE | | + + + + + + | MCV | 93.4 | 80.0 - 96.0 fL | [facility] | | | | | | LABORATORY | | | | | | SERVICES, | | | | | | CORE | | + + + + + + | MCHC | 32.0 (L) | 33.0 - 35.5 | [facility] | | | | | g/dL | LABORATORY | | | | | | SERVICES, | | | | | | CORE | | + + + + + + | RDW SD | 49.1 (H) | 35.1 - 46.3 fL | [facility] | | | | | | LABORATORY | | | | | | SERVICES, | | | | | | CORE | | + + + + + + | PLATELET | 167 | 150 - 400 K/cu | [facility] | | | COUNT | | mm | LABORATORY | | | | | | SERVICES, | | | | | | CORE | | + + + + + + | MPV | 11.3 | 9.7 - 12.3 fL | [facility] | | | | | | LABORATORY | | | | | | SERVICES, | | | | | | CORE | | + + + + + + | NRBC% | 0.0 | 0.0 - 0.3 % | [facility] | | | | | | LABORATORY | | | | | | SERVICES, | | | | | | CORE | | + + + + + + | NRBC# | 0.00 | 0.00 - 0.02 | [facility] | | | | | K/cu mm | LABORATORY | | | | | | SERVICES, | | | | | | CORE | | + + + + + + + + | Specimen | + + | Blood - Blood | + + + + + | Narrative | Performed At | + + + | 3 hours after IIb/IIa inhibitor infusion started Draw with | [facility] | | post-procedure Troponin New methodology and reference ranges for some | LABORATORY | | CBC/Differential analytes in effect on 01/04/13. 3 hours after | SERVICES, CORE | | IIb/IIa inhibitor infusion started Draw with post-procedure Troponin | | + + + + + + + + | Performing | Address | City/State/Zipcode | Phone Number | | Organization | | | | + + + + + | [facility] | [address] | [place] [address] | | | SERVICES, CORE | [address] | | | + + + + + APTT (ACT. PART. THROMBO TIME) (02/28/2013 3:05 PM PDT) + + + + + + | Component | Value | Ref Range | Performed | Pathologist | | | | | At | Signature | + + + + + + | APTT | 57.7 (H) | 26.0 - 36.0 | [facility] | | | | | seconds | LABORATORY | | | | | | SERVICES, | | | | | | CORE | | + + + + + + + + | Specimen | + + | Blood - Blood | + + + + + | Narrative | Performed At | + + + | APTT Therapeutic | [facility] | | Range: (75 - 120) sec | LABORATORY | | Heparin levels of 0.35 - 0.7 U/mL | SERVICES, CORE | + + + + + + + + | Performing | Address | City/State/Zipcode | Phone Number | | Organization | | | | + + + + + | [facility] | [address] | [place] [address] | | | SERVICES, CORE | [address] | | | + + + + + POTASSIUM, PLASMA (02/28/2013 3:05 PM PDT) + +---------+ + + + | Component | Value | Ref Range | Performed | Pathologist | | | | | At | Signature | + +---------+ + + + | POTASSIUM, | 4.5 | 3.4 - 5.0 | [facility] | | | PLASMA | | mmol/L | LABORATORY | | | (LAB) | | | SERVICES, | | | | | | CORE | | + +---------+ + + + | POTASSIUM | No Hemo | | [facility] | | | CMNT | | | LABORATORY | | | | | | SERVICES, | | | | | | CORE | | + +---------+ + + + + + | Specimen | + + | Blood - Blood | + + + + + + + | Performing | Address | City/State/Zipcode | Phone Number | | Organization | | | | + + + + + | [facility] | [address] | [place] [address] | | | SERVICES, CORE | [address] | | | + + + + + TROPONIN I, PLASMA (02/28/2013 3:05 PM PDT) + + + + + + | Component | Value | Ref Range | Performed | Pathologist | | | | | At | Signature | + + + + + + | TROPONIN I | 5.41 (H) | <0.80 ng/mL | [facility] | | | | | | LABORATORY | | | | | | SERVICES, | | | | | | CORE | | + + + + + + + + | Specimen | + + | Blood - Blood | + + + + + + + | Performing | Address | City/State/Zipcode | Phone Number | | Organization | | | | + + + + + | [facility] | [address] | [place] [address] | | | LELAND ZACARIAS | [address] | | | + + + + + 12 LEAD ECG (02/28/2013 8:16 AM PDT) + + + + + + | Component | Value | Ref Range | Performed | Pathologist | | | | | At | Signature | + + + + + + | VENTRICULAR | 62 | BPM | [facility] | | | RATE | | | OF | | | | | | CARDIOLOGY | | + + + + + + | ATRIAL RATE | 62 | BPM | [facility] | | | | | | OF | | | | | | CARDIOLOGY | | + + + + + + | P-R | 194 | ms | [facility] | | | INTERVAL | | | OF | | | | | | CARDIOLOGY | | + + + + + + | QRS | 92 | ms | [facility] | | | DURATION | | | OF | | | | | | CARDIOLOGY | | + + + + + + | QT | 456 | ms | [facility] | | | | | | OF | | | | | | CARDIOLOGY | | + + + + + + | QTC | 462 | ms | [facility] | | | | | | OF | | | | | | CARDIOLOGY | | + + + + + + | P AXIS | 35 | degrees | [facility] | | | | | | OF | | | | | | CARDIOLOGY | | + + + + + + | R AXIS | 37 | degrees | [facility] | | | | | | OF | | | | | | CARDIOLOGY | | + + + + + + | T AXIS | 137 | degrees | [facility] | | | | | | OF | | | | | | CARDIOLOGY | | + + + + + + | EKG | Normal sinus | | [facility] | | | DIAGNOSIS | rhythmPossible Left | | OF | | | | atrial enlargementLow | | CARDIOLOGY | | | | voltage QRSSeptal | | | | | | infarct , age | | | | | | undeterminedT wave | | | | | | abnormality, consider | | | | | | lateral ischemiaAbnormal | | | | | | ECGConfirmed by | | | | | | FRANNY VELAZQUEZ | | | | | | 2434) on 03/01/2013 | | | | | | 6:17:51 PM | | | | + + + + + + + + | Specimen | + + | | + + + + + | Narrative | Performed At | + + + | Please click | [facility] | | on view image for the detailed interpretation from [employer] results. | CARDIOLOGY | + + + + + | Procedure Note | + + | Interface, Cardiology Results - 03/01/2013 6:18 PM PDT Please click on view image | | for the detailed interpretation from [employer] results. | + + + + + + + | Performing | Address | City/State/Zipcode | Phone Number | | Organization | | | | + + + + + | [facility] | [address] | [place], [place] | | | CARDIOLOGY | [address] | [address] | | + + + + + MAGNESIUM, PLASMA (02/28/2013 7:14 AM PDT) + +---------+ + + + | Component | Value | Ref Range | Performed | Pathologist | | | | | At | Signature | + +---------+ + + + | MAGNESIUM,P | 3.0 (H) | 1.8 - 2.5 mg/dL | [facility] | | | LASMA | | | LABORATORY | | | | | | SERVICES, | | | | | | CORE | | + +---------+ + + + + + | Specimen | + + | Blood - Blood | + + + + + + + | Performing | Address | City/State/Zipcode | Phone Number | | Organization | | | | + + + + + | [facility] | [address] | [place] [address] | | | SERVICES, CORE | [address] | | | + + + + + NT-PRO BNP (02/28/2013 7:14 AM PDT) + + + + + + | Component | Value | Ref Range | Performed | Pathologist | | | | | At | Signature | + + + + + + | NT-PRO BNP | 6,314 (H) | <125 pg/mL | [facility] | | | | | | LABORATORY | | | | | | SERVICES, | | | | | | CORE | | + + + + + + + + | Specimen | + + | Blood - Blood | + + + + + + + | Performing | Address | City/State/Zipcode | Phone Number | | Organization | | | | + + + + + | [facility] | [address] | [place] [address] | | | SERVICES, CORE | [address] | | | + + + + + CBC (HEMOGRAM) ONLY (02/28/2013 7:14 AM PDT) + + + + + + | Component | Value | Ref Range | Performed | Pathologist | | | | | At | Signature | + + + + + + | WHITE CELL | 7.08 | 4.40 - 11.00 | [facility] | | | COUNT | | K/cu mm | LABORATORY | | | | | | SERVICES, | | | | | | CORE | | + + + + + + | RED CELL | 4.41 | 4.00 - 5.20 | [facility] | | | COUNT | | M/cu mm | LABORATORY | | | | | | SERVICES, | | | | | | CORE | | + + + + + + | HEMOGLOBIN | 13.1 | 12.0 - 16.0 | [facility] | | | | | g/dL | LABORATORY | | | | | | SERVICES, | | | | | | CORE | | + + + + + + | HEMATOCRIT | 41.9 | 36.0 - 46.0 % | [facility] | | | | | | LABORATORY | | | | | | SERVICES, | | | | | | CORE | | + + + + + + | MCV | 95.0 | 80.0 - 96.0 fL | [facility] | | | | | | LABORATORY | | | | | | SERVICES, | | | | | | CORE | | + + + + + + | MCHC | 31.3 (L) | 33.0 - 35.5 | [facility] | | | | | g/dL | LABORATORY | | | | | | SERVICES, | | | | | | CORE | | + + + + + + | RDW SD | 50.3 (H) | 35.1 - 46.3 fL | [facility] | | | | | | LABORATORY | | | | | | SERVICES, | | | | | | CORE | | + + + + + + | PLATELET | 171 | 150 - 400 K/cu | [facility] | | | COUNT | | mm | LABORATORY | | | | | | SERVICES, | | | | | | CORE | | + + + + + + | MPV | 11.5 | 9.7 - 12.3 fL | [facility] | | | | | | LABORATORY | | | | | | SERVICES, | | | | | | CORE | | + + + + + + | NRBC% | 0.0 | 0.0 - 0.3 % | [facility] | | | | | | LABORATORY | | | | | | SERVICES, | | | | | | CORE | | + + + + + + | NRBC# | 0.00 | 0.00 - 0.02 | [facility] | | | | | K/cu mm | LABORATORY | | | | | | SERVICES, | | | | | | CORE | | + + + + + + + + | Specimen | + + | Blood - Blood | + + + + + | Narrative | Performed At | + + + | New methodology and reference ranges for some CBC/Differential | [facility] | | analytes in effect on 01/04/13. | LABORATORY | | | [address] | + + + + + + + + | Performing | Address | City/State/Zipcode | Phone Number | | Organization | | | | + + + + + | [facility] | [address] | [place] [address] | | | LELAND ZACARIAS | [address] | | | + + + + + APTT (ACT. PART. THROMBO TIME) (02/28/2013 7:14 AM PDT) + + + + + + | Component | Value | Ref Range | Performed | Pathologist | | | | | At | Signature | + + + + + + | APTT | 44.7 (H) | 26.0 - 36.0 | [facility] | | | | | seconds | LABORATORY | | | | | | SERVICES, | | | | | | CORE | | + + + + + + + + | Specimen | + + | Blood - Blood | + + + + + | Narrative | Performed At | + + + | Acute Coronary Syndrome Heparin Protocol aPTT 6 hrs after every | [facility] | | heparin rate change; If aPTT within target range for 2 consecutive | LABORATORY | | results, recheck in 24 hours APTT Therapeutic | [facility] | | Range: (75 - 120) sec | | | Heparin levels of 0.35 - 0.7 U/mL | | + + + + + + + + | Performing | Address | City/State/Zipcode | Phone Number | | Organization | | | | + + + + + | [facility] | [address] | [place] [address] | | | LELAND ZACARIAS | [address] | | | + + + + + INR (02/28/2013 7:14 AM PDT) + +-------+ + + + | Component | Value | Ref Range | Performed | Pathologist | | | | | At | Signature | + +-------+ + + + | INR | 1.05 | 0.90 - 1.20 INR | [facility] | | | | | | LABORATORY | | | | | | SERVICES, | | | | | | CORE | | + +-------+ + + + + + | Specimen | + + | Blood - Blood | + + + + + | Narrative | Performed At | + + + | Acute Coronary Syndrome Heparin Protocol aPTT 6 hrs after every | [facility] | | heparin rate change; If aPTT within target range for 2 consecutive | LABORATORY | | results, recheck in 24 hours INR Therapeutic ranges for full | SERVICES, CORE | | anticoagulation: INR for Venous | | | Thromboembolism (2.0 - 3.0) INR INR for most | | | patients with mech. valves (2.5 - 3.5) INR | | + + + + + + + + | Performing | Address | City/State/Zipcode | Phone Number | | Organization | | | | + + + + + | [facility] | [address] | [place] [address] | | | SERVICES, CORE | [address] | | | + + + + + BASIC METABOLIC SET (NA, K, CL, TCO2, BUN, CR, GLU, CA) (02/28/2013 7:14 AM PDT) + +---------+ + + + | Component | Value | Ref Range | Performed | Pathologist | | | | | At | Signature | + +---------+ + + + | GLUCOSE, | 105 (H) | 60 - 99 mg/dL | [facility] | | | PLASMA | | | LABORATORY | | | (LAB) | | | SERVICES, | | | | | | CORE | | + +---------+ + + + | BUN, PLASMA | 18 | 6 - 20 mg/dL | [facility] | | | (LAB) | | | LABORATORY | | | | | | SERVICES, | | | | | | CORE | | + +---------+ + + + | CREATININE | 0.77 | 0.60 - 1.10 | [facility] | | | PLASMA | | mg/dL | LABORATORY | | | (LAB) | | | SERVICES, | | | | | | CORE | | + +---------+ + + + | EGFR | >60 | >60 mL/min | [facility] | | | - | | | LABORATORY | | | LAO | | | SERVICES, | | | | | | CORE | | + +---------+ + + + | EGFR NON | >60 | >60 mL/min | [facility] | | | -SAM | | | LABORATORY | | | RICAN | | | SERVICES, | | | | | | CORE | | + +---------+ + + + | SODIUM, | 139 | 136 - 145 | [facility] | | | PLASMA | | mmol/L | LABORATORY | | | (LAB) | | | SERVICES, | | | | | | CORE | | + +---------+ + + + | POTASSIUM, | 4.3 | 3.4 - 5.0 | [facility] | | | PLASMA | | mmol/L | LABORATORY | | | (LAB) | | | SERVICES, | | | | | | CORE | | + +---------+ + + + | CHLORIDE, | 103 | 97 - 108 mmol/L | [facility] | | | PLASMA | | | LABORATORY | | | (LAB) | | | SERVICES, | | | | | | CORE | | + +---------+ + + + | TOTAL CO2, | 28 | 21 - 32 mmol/L | [facility] | | | PLASMA | | | LABORATORY | | | (LAB) | | | SERVICES, | | | | | | CORE | | + +---------+ + + + | CALCIUM, | 8.7 | 8.6 - 10.2 | [facility] | | | PLASMA | | mg/dL | LABORATORY | | | (LAB) | | | SERVICES, | | | | | | CORE | | + +---------+ + + + | ANION GAP | 8 | mmol/L | [facility] | | | | | | LABORATORY | | | | | | SERVICES, | | | | | | CORE | | + +---------+ + + + | POTASSIUM | No Hemo | | [facility] | | | CMNT | | | LABORATORY | | | | | | SERVICES, | | | | | | CORE | | + +---------+ + + + + + | Specimen | + + | Blood - Blood | + + + + + | Narrative | Performed At | + + + | GFR is estimated using the MDRD equation recommended by the | [facility] | | National Kidney Disease Education Program. Estimated GFR | LABORATORY | | Interpretive Information: <60 mL/min/1.73 sq | SERVICES, CORE | | m Chronic Kidney Disease <15 mL/min/1.73 | | | sq m Kidney Failure Estimated GFR greater | | | that 60 mL/min/1.73 sq m is of limited clinical value. The MDRD | | | equation is not valid in the following situations: - Patients under | | | 18 years of age - Severe malnutrition or obesity - Vegetarian diet | | | - Rapidly changing kidney function | | + + + + + + + + | Performing | Address | City/State/Zipcode | Phone Number | | Organization | | | | + + + + + | [facility] | [address] | [place] [address] | | | SERVICES, CORE | [address] | | | + + + + + TROPONIN I, PLASMA (02/28/2013 7:14 AM PDT) + + + + + + | Component | Value | Ref Range | Performed | Pathologist | | | | | At | Signature | + + + + + + | TROPONIN I | 10.70 (H) | <0.80 ng/mL | [facility] | | | | | | LABORATORY | | | | | | SERVICES, | | | | | | CORE | | + + + + + + + + | Specimen | + + | Blood - Blood | + + + + + + + | Performing | Address | City/State/Zipcode | Phone Number | | Organization | | | | + + + + + | [facility] | [address] | [place] [address] | | | SERVICES, CORE | [address] | | | + + + + + APTT (ACT. PART. THROMBO TIME) (02/28/2013 12:45 AM PDT) + + + + + + | Component | Value | Ref Range | Performed | Pathologist | | | | | At | Signature | + + + + + + | APTT | 48.5 (H) | 26.0 - 36.0 | [facility] | | | | | seconds | LABORATORY | | | | | | SERVICES, | | | | | | CORE | | + + + + + + + + | Specimen | + + | Blood - Blood | + + + + + | Narrative | Performed At | + + + | Acute Coronary Syndrome Heparin Protocol aPTT 6 hrs after every | [facility] | | heparin rate change; If aPTT within target range for 2 consecutive | LABORATORY | | results, recheck in 24 hours APTT Therapeutic | [facility] | | Range: (75 - 120) sec | | | Heparin levels of 0.35 - 0.7 U/mL | | + + + + + + + + | Performing | Address | City/State/Zipcode | Phone Number | | Organization | | | | + + + + + | [facility] | [address] | [place] [address] | | | LELAND ZACARIAS | [address] | | | + + + + + CARDIOLOGY (02/28/2013 12:00 AM PDT) + + + | Narrative | Performed At | + + + | | | | | | + + + + + | Procedure Note | + + | Rigo New - 03/01/2013 7:54 AM PDT | + + TRANSTHORACIC ECHOCARDIOGRAM, ADULT (02/28/2013 12:00 AM PDT) + + + | Narrative | Performed At | + + + | | | | | | + + + + + | Procedure Note | + + | Rigo New - 02/28/2013 3:09 PM PDT | + + TROPONIN I, PLASMA (02/27/2013 10:40 PM PDT) + + + + + + | Component | Value | Ref Range | Performed | Pathologist | | | | | At | Signature | + + + + + + | TROPONIN I | 11.00 (H) | <0.80 ng/mL | [facility] | | | | | | LABORATORY | | | | | | SERVICES, | | | | | | CORE | | + + + + + + + + | Specimen | + + | Blood - Blood | + + + + + + + | Performing | Address | City/State/Zipcode | Phone Number | | Organization | | | | + + + + + | [facility] | [address] | [place] [address] | | | SERVICES, CORE | [address] | | | + + + + + APTT (ACT. PART. THROMBO TIME) (02/27/2013 4:45 PM PDT) + +-------+ + + + | Component | Value | Ref Range | Performed | Pathologist | | | | | At | Signature | + +-------+ + + + | APTT | 33.6 | 26.0 - 36.0 | [facility] | | | | | seconds | LABORATORY | | | | | | SERVICES, | | | | | | CORE | | + +-------+ + + + + + | Specimen | + + | Blood - Blood | + + + + + | Narrative | Performed At | + + + | APTT Therapeutic | [facility] | | Range: (75 - 120) sec | LABORATORY | | Heparin levels of 0.35 - 0.7 U/mL | [facility] | + + + + + + + + | Performing | Address | City/State/Zipcode | Phone Number | | Organization | | | | + + + + + | [facility] | [address] | [place] [address] | | | LELAND ZACARIAS | [address] | | | + + + + + CBC AND AUTO DIFF (02/27/2013 4:45 PM PDT) + + + + + + | Component | Value | Ref Range | Performed | Pathologist | | | | | At | Signature | + + + + + + | WHITE CELL | 7.24 | 4.40 - 11.00 | [facility] | | | COUNT | | K/cu mm | LABORATORY | | | | | | SERVICES, | | | | | | CORE | | + + + + + + | RED CELL | 4.32 | 4.00 - 5.20 | [facility] | | | COUNT | | M/cu mm | LABORATORY | | | | | | SERVICES, | | | | | | CORE | | + + + + + + | HEMOGLOBIN | 12.9 | 12.0 - 16.0 | [facility] | | | | | g/dL | LABORATORY | | | | | | SERVICES, | | | | | | CORE | | + + + + + + | HEMATOCRIT | 40.4 | 36.0 - 46.0 % | [facility] | | | | | | LABORATORY | | | | | | SERVICES, | | | | | | CORE | | + + + + + + | MCV | 93.5 | 80.0 - 96.0 fL | [facility] | | | | | | LABORATORY | | | | | | SERVICES, | | | | | | CORE | | + + + + + + | MCHC | 31.9 (L) | 33.0 - 35.5 | [facility] | | | | | g/dL | LABORATORY | | | | | | SERVICES, | | | | | | CORE | | + + + + + + | RDW SD | 49.8 (H) | 35.1 - 46.3 fL | [facility] | | | | | | LABORATORY | | | | | | SERVICES, | | | | | | CORE | | + + + + + + | PLATELET | 176 | 150 - 400 K/cu | [facility] | | | COUNT | | mm | LABORATORY | | | | | | SERVICES, | | | | | | CORE | | + + + + + + | MPV | 12.0 | 9.7 - 12.3 fL | [facility] | | | | | | LABORATORY | | | | | | SERVICES, | | | | | | CORE | | + + + + + + | NRBC% | 0.0 | 0.0 - 0.3 % | [facility] | | | | | | LABORATORY | | | | | | SERVICES, | | | | | | CORE | | + + + + + + | NRBC# | 0.00 | 0.00 - 0.02 | [facility] | | | | | K/cu mm | LABORATORY | | | | | | SERVICES, | | | | | | CORE | | + + + + + + | NEUTROPHIL | 66.0 | 50.0 - 70.0 % | [facility] | | | % | | | LABORATORY | | | | | | SERVICES, | | | | | | CORE | | + + + + + + | LYMPHOCYTE | 23.9 | 18.0 - 42.0 % | [facility] | | | % | | | LABORATORY | | | | | | SERVICES, | | | | | | CORE | | + + + + + + | MONOCYTE % | 8.3 | 3.5 - 9.0 % | [facility] | | | | | | LABORATORY | | | | | | SERVICES, | | | | | | CORE | | + + + + + + | EOS % | 1.1 | 1.0 - 3.0 % | [facility] | | | | | | LABORATORY | | | | | | SERVICES, | | | | | | CORE | | + + + + + + | BASO % | 0.3 | 0.0 - 2.0 % | [facility] | | | | | | LABORATORY | | | | | | SERVICES, | | | | | | CORE | | + + + + + + | IG% | 0.4 | 0.0 - 0.6 % | [facility] | | | | | | LABORATORY | | | | | | SERVICES, | | | | | | CORE | | + + + + + + | NEUTROPHIL | 4.78 | 1.80 - 7.70 | [facility] | | | # | | K/cu mm | LABORATORY | | | | | | SERVICES, | | | | | | CORE | | + + + + + + | LYMPHOCYTE | 1.73 | 1.00 - 4.80 | [facility] | | | # | | K/cu mm | LABORATORY | | | | | | SERVICES, | | | | | | CORE | | + + + + + + | MONOCYTE # | 0.60 | 0.10 - 0.90 | [facility] | | | | | K/cu mm | LABORATORY | | | | | | SERVICES, | | | | | | CORE | | + + + + + + | EOS # | 0.08 | 0.00 - 0.50 | [facility] | | | | | K/cu mm | LABORATORY | | | | | | SERVICES, | | | | | | CORE | | + + + + + + | BASO # | 0.02 | 0.00 - 0.10 | [facility] | | | | | K/cu mm | LABORATORY | | | | | | SERVICES, | | | | | | CORE | | + + + + + + | IG# | 0.03 | 0.00 - 0.03 | [facility] | | | | | K/cu mm | LABORATORY | | | | | | SERVICES, | | | | | | CORE | | + + + + + + + + | Specimen | + + | Blood - Blood | + + + + + | Narrative | Performed At | + + + | Immature Granulocyes (IG) include metamyelocytes, myelocytes | [facility] | | and promyelocytes. Bands are not included in the IG count. New | LABORATORY | | methodology and reference ranges for some CBC/Differential analytes in | [facility], CORE | | effect on 01/04/13. | | + + + + + + + + | Performing | Address | City/State/Zipcode | Phone Number | | Organization | | | | + + + + + | [facility] | [address] | [place] [address] | | | RE[place], LELAND | [address] | | | + + + + + INR (02/27/2013 4:45 PM PDT) + +-------+ + + + | Component | Value | Ref Range | Performed | Pathologist | | | | | At | Signature | + +-------+ + + + | INR | 1.13 | 0.90 - 1.20 INR | [facility] | | | | | | LABORATORY | | | | | | SERVICES, | | | | | | CORE | | + +-------+ + + + + + | Specimen | + + | Blood - Blood | + + + + + | Narrative | Performed At | + + + | INR Therapeutic ranges for full anticoagulation: INR for | [facility] | | Venous Thromboembolism (2.0 - 3.0) INR INR | LABORATORY | | for most patients with mech. valves (2.5 - 3.5) INR | [facility] ZACARI[facility] | + + + + + + + + | Performing | Address | City/State/Zipcode | Phone Number | | Organization | | | | + + + + + | [facility] | [address] | [place] [address] | | | LELAND ZACARIAS | [address] | | | + + + + + TSH (02/27/2013 4:44 PM PDT) + + + + + + | Component | Value | Ref Range | Performed | Pathologist | | | | | At | Signature | + + + + + + | TSH | 2.36Comment: Normal TSH | 0.34 - 5.60 | [facility] - | | | | value in : | mcIU/mL | [facility] - | | | | 0.5-2.5. uIU/ml | | [place] | | + + + + + + + + | Specimen | + + | Blood - Blood | + + + + + + + | Performing | Address | City/State/Zipcode | Phone Number | | Organization | | | | + + + + + | [facility] - | [address] | [place] [address] | | | [place] | | | | + + + + + LIPID SET (TRIG, T CHOL, HDL, CALC LDL) (02/27/2013 4:44 PM PDT) + +---------+ + + + | Component | Value | Ref Range | Performed | Pathologist | | | | | At | Signature | + +---------+ + + + | CHOLESTEROL | 157 | <200 mg/dL | [facility] | | | (LAB) | | | LABORATORY | | | | | | SERVICES, | | | | | | CORE | | + +---------+ + + + | TRIGLYCERID | 73 | <150 mg/dL | [facility] | | | ES | | | LABORATORY | | | | | | SERVICES, | | | | | | CORE | | + +---------+ + + + | HDL | 71 | >40 mg/dL | [facility] | | | CHOLESTEROL | | | LABORATORY | | | | | | SERVICES, | | | | | | CORE | | + +---------+ + + + | HDL CMNT | No Hemo | | [facility] | | | | | | LABORATORY | | | | | | SERVICES, | | | | | | CORE | | + +---------+ + + + | LDL | 71 | <100 mg/dL | [facility] | | | CHOLESTEROL | | | LABORATORY | | | , | | | SERVICES, | | | CALCULATED | | | CORE | | + +---------+ + + + | VLDL | 15 | <31 mg/dL | [facility] | | | CHOLESTEROL | | | LABORATORY | | | , | | | SERVICES, | | | CALCULATED | | | CORE | | + +---------+ + + + | NON-HDL | 86 | <130 mg/dL | [facility] | | | CHOLESTEROL | | | LABORATORY | | | | | | SERVICES, | | | | | | CORE | | + +---------+ + + + + + | Specimen | + + | Blood - Blood | + + + + + | Narrative | Performed At | + + + | Cholesterol Reference Range: Desirable: <200 | [facility] | | mg/dL Borderline High: 200 - 239 mg/dL | LABORATORY | | High: >=240 mg/dL | SERVICES, CORE | | LDL Cholesterol Reference Range: | | | Optimal: <100 mg/dL Near | | | Optimal: 100-129 mg/dL Borderline High: 130-159 mg/dL | | | High: 160-189 mg/dL | | | Very High: >=190 mg/dL non-HDL Cholesterol | | | Reference Range: Optimal: <130 mg/dL | | | Near Optimal: 130-159 mg/dL Borderline | | | High: 160-189 mg/dL High: | | | 190-209 mg/dL Very High: >=210 mg/dL | | | Triglyceride Reference Range: Normal: <150 | | | mg/dL Borderline High: 150-199 mg/dL | | | High: 200-499 mg/dL Very | | | High: >=500 mg/dL HDL Reference Range: High | | | Risk: <40 mg/dL Desirable: >=60 mg/dL | | + + + + + + + + | Performing | Address | City/State/Zipcode | Phone Number | | Organization | | | | + + + + + | [facility] | [address] | [place] [address] | | | LELAND ZACARIAS | [address] | | | + + + + + TROPONIN I, PLASMA (02/27/2013 4:44 PM PDT) + + + + + + | Component | Value | Ref Range | Performed | Pathologist | | | | | At | Signature | + + + + + + | TROPONIN I | 9.67 (H) | <0.80 ng/mL | [facility] | | | | | | LABORATORY | | | | | | SERVICES, | | | | | | CORE | | + + + + + + + + | Specimen | + + | Blood - Blood | + + + + + + + | Performing | Address | City/State/Zipcode | Phone Number | | Organization | | | | + + + + + | [facility] | [address] | [place] [address] | | | SERVICES, CORE | [address] | | | + + + + + MAGNESIUM, PLASMA (02/27/2013 4:44 PM PDT) + +---------+ + + + | Component | Value | Ref Range | Performed | Pathologist | | | | | At | Signature | + +---------+ + + + | MAGNESIUM,P | 1.5 (L) | 1.8 - 2.5 mg/dL | [facility] | | | LASMA | | | LABORATORY | | | | | | SERVICES, | | | | | | CORE | | + +---------+ + + + + + | Specimen | + + | Blood - Blood | + + + + + + + | Performing | Address | City/State/Zipcode | Phone Number | | Organization | | | | + + + + + | [facility] | [address] | [place] [address] | | | SERVICES, CORE | [address] | | | + + + + + COMPLETE METABOLIC SET (NA,K,CL,CO2,BUN,CREAT,GLUC,CA,AST,ALT,BILI TOTAL,ALK PHOS,ALB,PROT TOTAL) (02/27/2013 4:44 PM PDT) + +---------+ + + + | Component | Value | Ref Range | Performed | Pathologist | | | | | At | Signature | + +---------+ + + + | GLUCOSE, | 102 (H) | 60 - 99 mg/dL | [facility] | | | PLASMA | | | LABORATORY | | | (LAB) | | | SERVICES, | | | | | | CORE | | + +---------+ + + + | BUN, PLASMA | 20 | 6 - 20 mg/dL | [facility] | | | (LAB) | | | LABORATORY | | | | | | SERVICES, | | | | | | CORE | | + +---------+ + + + | CREATININE | 0.83 | 0.60 - 1.10 | [facility] | | | PLASMA | | mg/dL | LABORATORY | | | (LAB) | | | SERVICES, | | | | | | CORE | | + +---------+ + + + | EGFR | >60 | >60 mL/min | [facility] | | | - | | | LABORATORY | | | LAO | | | SERVICES, | | | | | | CORE | | + +---------+ + + + | EGFR NON | >60 | >60 mL/min | [facility] | | | -SAM | | | LABORATORY | | | RICAN | | | SERVICES, | | | | | | CORE | | + +---------+ + + + | SODIUM, | 141 | 136 - 145 | [facility] | | | PLASMA | | mmol/L | LABORATORY | | | (LAB) | | | SERVICES, | | | | | | CORE | | + +---------+ + + + | POTASSIUM, | 3.7 | 3.4 - 5.0 | [facility] | | | PLASMA | | mmol/L | LABORATORY | | | (LAB) | | | SERVICES, | | | | | | CORE | | + +---------+ + + + | CHLORIDE, | 105 | 97 - 108 mmol/L | [facility] | | | PLASMA | | | LABORATORY | | | (LAB) | | | SERVICES, | | | | | | CORE | | + +---------+ + + + | TOTAL CO2, | 28 | 21 - 32 mmol/L | [facility] | | | PLASMA | | | LABORATORY | | | (LAB) | | | SERVICES, | | | | | | CORE | | + +---------+ + + + | CALCIUM, | 8.6 | 8.6 - 10.2 | [facility] | | | PLASMA | | mg/dL | LABORATORY | | | (LAB) | | | SERVICES, | | | | | | CORE | | + +---------+ + + + | BILIRUBIN | 0.6 | 0.3 - 1.2 mg/dL | [facility] | | | TOTAL | | | LABORATORY | | | | | | SERVICES, | | | | | | CORE | | + +---------+ + + + | TOTAL | 6.9 | 6.4 - 8.2 g/dL | [facility] | | | PROTEIN, | | | LABORATORY | | | PLASMA | | | SERVICES, | | | (LAB) | | | CORE | | + +---------+ + + + | ALBUMIN, | 3.8 | 3.5 - 4.7 g/dL | [facility] | | | PLASMA | | | LABORATORY | | | (LAB) | | | SERVICES, | | | | | | CORE | | + +---------+ + + + | ALK PHOS | 98 | 53 - 141 U/L | [facility] | | | | | | LABORATORY | | | | | | SERVICES, | | | | | | CORE | | + +---------+ + + + | AST(SGOT) | 73 (H) | 15 - 41 U/L | [facility] | | | | | | LABORATORY | | | | | | SERVICES, | | | | | | CORE | | + +---------+ + + + | ALT (SGPT) | 37 | 12 - 60 U/L | [facility] | | | | | | LABORATORY | | | | | | SERVICES, | | | | | | CORE | | + +---------+ + + + | ANION | 8 | 4 - 11 mmol/L | [facility] | | | GAP(ALB | | | LABORATORY | | | CORRECTED) | | | SERVICES, | | | | | | CORE | | + +---------+ + + + | POTASSIUM | No Hemo | | [facility] | | | CMNT | | | LABORATORY | | | | | | SERVICES, | | | | | | CORE | | + +---------+ + + + | BILI T CMNT | No Hemo | | [facility] | | | | | | LABORATORY | | | | | | SERVICES, | | | | | | CORE | | + +---------+ + + + | AST CMNT | No Hemo | | [facility] | | | | | | LABORATORY | | | | | | SERVICES, | | | | | | CORE | | + +---------+ + + + | ANION GAP | 8 | mmol/L | [facility] | | | | | | LABORATORY | | | | | | SERVICES, | | | | | | CORE | | + +---------+ + + + + + | Specimen | + + | Blood - Blood | + + + + + | Narrative | Performed At | + + + | GFR is estimated using the MDRD equation recommended by the | [facility] | | National Kidney Disease Education Program. Estimated GFR | LABORATORY | | Interpretive Information: <60 mL/min/1.73 sq | SERVICES, CORE | | m Chronic Kidney Disease <15 mL/min/1.73 | | | sq m Kidney Failure Estimated GFR greater | | | that 60 mL/min/1.73 sq m is of limited clinical value. The MDRD | | | equation is not valid in the following situations: - Patients under | | | 18 years of age - Severe malnutrition or obesity - Vegetarian diet | | | - Rapidly changing kidney function New reference range effective | | | 10/02/2012 for Total proteins performed in Core Lab only. | | + + + + + + + + | Performing | Address | City/State/Zipcode | Phone Number | | Organization | | | | + + + + + | [facility] | [address] | [place] [address] | | | SERVICES, [place] | [address] | | | + + + + + 12 LEAD ECG (02/27/2013 3:58 PM PDT) + + + + + + | Component | Value | Ref Range | Performed | Pathologist | | | | | At | Signature | + + + + + + | VENTRICULAR | 67 | BPM | [facility] | | | RATE | | | OF | | | | | | CARDIOLOGY | | + + + + + + | ATRIAL RATE | 67 | BPM | [facility] | | | | | | OF | | | | | | CARDIOLOGY | | + + + + + + | P-R | 186 | ms | [facility] | | | INTERVAL | | | OF | | | | | | CARDIOLOGY | | + + + + + + | QRS | 94 | ms | [facility] | | | DURATION | | | OF | | | | | | CARDIOLOGY | | + + + + + + | QT | 454 | ms | [facility] | | | | | | OF | | | | | | CARDIOLOGY | | + + + + + + | QTC | 479 | ms | [facility] | | | | | | OF | | | | | | CARDIOLOGY | | + + + + + + | P AXIS | 27 | degrees | [facility] | | | | | | OF | | | | | | CARDIOLOGY | | + + + + + + | R AXIS | 1 | degrees | [facility] | | | | | | OF | | | | | | CARDIOLOGY | | + + + + + + | T AXIS | 134 | degrees | [facility] | | | | | | OF | | | | | | CARDIOLOGY | | + + + + + + | EKG | Sinus rhythm with | | [facility] | | | DIAGNOSIS | occasional Premature | | OF | | | | ventricular | | CARDIOLOGY | | | | complexesPossible Left | | | | | | atrial enlargementLow | | | | | | voltage QRSSeptal | | | | | | infarct , age | | | | | | undeterminedInferior | | | | | | infarct , age | | | | | | undeterminedST & T wave | | | | | | abnormality, consider | | | | | | lateral ischemiaAbnormal | | | | | | ECGConfirmed by | | | | | | FRANNY VELAZQUEZ | | | | | | ([id number]) on 03/01/2013 | | | | | | 6:14:29 PM | | | | + + + + + + + + | Specimen | + + | | + + + + + | Narrative | Performed At | + + + | Please click | [facility] | | on view image for the detailed interpretation from [employer] results. | CARDIOLOGY | + + + + + | Procedure Note | + + | Interface, Cardiology Results - 03/01/2013 6:14 PM PDT Please click on view image | | for the detailed interpretation from [employer] results. | + + + + + + + | Performing | Address | City/State/Zipcode | Phone Number | | Organization | | | | + + + + + | [facility] | [address] | [place], [place] | | | CARDIOLOGY | [address] | [address] | | + + + + + documented in this encounter Visit Diagnoses + + | Diagnosis | + + | Unstable angina (HCC) - Primary Intermediate coronary syndrome | + + | NSTEMI (non-ST elevated myocardial infarction) (HCC) Acute myocardial infarction, | | subendocardial infarction, episode of care unspecified | + + | Acute systolic heart failure (HCC) Acute systolic heart failure | + + | Ischemic cardiomyopathy Other specified forms of chronic ischemic heart disease | + + documented in this encounter Administered Medications + +--------+ +--------+------+------+ | Medication Order | MAR | Action | Dose | Rate | Site | | | Action | Date | | | | + +--------+ +--------+------+------+ | acetaminophen (TYLENOL) tablet | Given | 02/29/20 | 650 mg | | | | 325-650 mg 325-650 mg, oral, | | 13 4:12 | | | | | EVERY 4 HOURS NEEDED, Starting | | AM PDT | | | | | 02/27/13 at 1641, Until Sat | | | | | | | 03/02/13 at 1720, mild pain | | | | | | + +--------+ +--------+------+------+ +-------+ +--------+---+---+ | Given | 02/28/20 | 650 mg | | | | | 13 4:55 | | | | | | PM PDT | | | | +-------+ +--------+---+---+ +---+---+ | | | +---+---+ + +-------+ +--------+---+---+ | aspirin tablet 325 mg 325 mg, | Given | 03/02/20 | 325 mg | | | | oral, DAILY, First dose on Mon | | 13 8:18 | | | | | 02/28/13 at 0900, Until | | AM PDT | | | | | Discontinued | | | | | | + +-------+ +--------+---+---+ +-------+ +--------+---+---+ | Given | 03/01/20 | 325 mg | | | | | 13 10:13 | | | | | | AM PDT | | | | +-------+ +--------+---+---+ | Given | 02/29/20 | 325 mg | | | | | 13 9:09 | | | | | | AM PDT | | | | +-------+ +--------+---+---+ +---+---+ | | | +---+---+ + +-------+ +-------+---+---+ | atorvastatin (LIPITOR) tablet | Given | 03/01/20 | 80 mg | | | | 80 mg 80 mg, oral, DAILY, First | | 13 9:25 | | | | | dose on Mon02/27/13 at 2000, | | PM PDT | | | | | Until Discontinued | | | | | | + +-------+ +-------+---+---+ +-------+ +-------+---+---+ | Given | 02/28/20 | 80 mg | | | | | 13 9:06 | | | | | | PM PDT | | | | +-------+ +-------+---+---+ +---+---+ | | | +---+---+ + +-------+ +---------+---+---+ | carvedilol (aka COREG) oral | Given | 03/02/20 | 1.5625 | | | | dose 1.563 mg 1.563 mg, oral, | | 13 8:19 | mg | | | | TWICE DAILY, First dose on Mon | | AM PDT | | | | | 02/28/13 at 0900, Until | | | | | | | Discontinued | | | | | | + +-------+ +---------+---+---+ +-------+ +---------+---+---+ | Given | 03/01/20 | 1.5625 | | | | | 13 9:25 | mg | | | | | PM PDT | | | | +-------+ +---------+---+---+ | Given | 03/01/20 | 1.5625 | | | | | 13 10:19 | mg | | | | | AM PDT | | | | +-------+ +---------+---+---+ +---+---+ | | | +---+---+ + +-------+ +--------+---+---+ | cholecalciferol (Vitamin D3) | Given | 03/02/20 | 5,000 | | | | (VITAMIN D-3) tablet 5,000 Units | | 13 8:18 | Units | | | | 5,000 Units, oral, DAILY, First | | AM PDT | | | | | dose on [facility] 02/28/13 at 0900, | | | | | | | Until Discontinued | | | | | | + +-------+ +--------+---+---+ +-------+ +--------+---+---+ | Given | 03/01/20 | 5,000 | | | | | 13 10:13 | Units | | | | | AM PDT | | | | +-------+ +--------+---+---+ | Given | 02/29/20 | 5,000 | | | | | 13 9:10 | Units | | | | | AM PDT | | | | +-------+ +--------+---+---+ +---+---+ | | | +---+---+ + +-------+ +-------+---+---+ | clopidogrel (PLAVIX) tablet 75 | Given | 02/28/20 | 75 mg | | | | mg 75 mg, oral, DAILY, First | | 13 9:07 | | | | | dose on Mon02/27/13 at 1930, | | PM PDT | | | | | Until Discontinued | | | | | | + +-------+ +-------+---+---+ +---+---+ | | | +---+---+ + +-------+ +-------+---+---+ | clopidogrel (PLAVIX) tablet 75 | Given | 03/02/20 | 75 mg | | | | mg 75 mg, oral, DAILY, First | | 13 8:19 | | | | | dose on Mon03/01/13 at 0900, | | AM PDT | | | | | Until Discontinued | | | | | | + +-------+ +-------+---+---+ +-------+ +-------+---+---+ | Given | 03/01/20 | 75 mg | | | | | 13 10:13 | | | | | | AM PDT | | | | +-------+ +-------+---+---+ +---+---+ | | | +---+---+ + +---------+ + +--------+---+ | eptifibatide (INTEGRILIN) 0.75 | New Bag | 02/29/20 | 2 | 11.52 | | | mg/mL IV infusion 2 mcg/kg/min | | 13 4:44 | mcg/kg/m | mL/hr | | | | | PM PDT | in | | | | 72 kg (rounded to 11.52 mL/hr), | | | | | | | intravenous, CONTINUOUS, Starting | | | | | | | Petra 02/28/13 at 0915, Until Petra | | | | | | | 02/28/13 at 2048 | | | | | | + +---------+ + +--------+---+ +---------+ + +--------+---+ | New Bag | 02/29/20 | 2 | 11.52 | | | | 13 10:04 | mcg/kg/m | mL/hr | | | | AM PDT | in | | | +---------+ + +--------+---+ +---+---+ | | | +---+---+ + +---------+ + +--------+---+ | eptifibatide (INTEGRILIN) 0.75 | New Bag | 02/29/20 | 2 | 11.52 | | | mg/mL IV infusion 2 mcg/kg/min | | 13 9:00 | mcg/kg/m | mL/hr | | | | | PM PDT | in | | | | 72 kg (rounded to 11.52 mL/hr), | | | | | | | intravenous, CONTINUOUS, Starting | | | | | | | [facility] 02/28/13 at 2100, Until Fri | | | | | | | 03/01/13 at 0314 | | | | | | + +---------+ + +--------+---+ +---+---+ | | | +---+---+ + +-------+ +---------+---+---+ | ferrous gluconate tablet 36 mg | Given | 02/29/20 | 325 mg | | | | elemental 36 mg elemental (325 | | 13 9:09 | total | | | | mg total salt), oral, DAILY, | | AM PDT | salt | | | | First dose on [facility] 02/28/13 at | | | | | | | 0900, Until Discontinued | | | | | | + +-------+ +---------+---+---+ +---+---+ | | | +---+---+ + +-------+ + +---+---+ | ferrous gluconate tablet 37.5 | Given | 03/02/20 | 37.5 mg | | | | mg elemental 37.5 mg elemental | | 13 8:18 | elementa | | | | (324 mg total salt), oral, DAILY, | | AM PDT | l | | | | First dose on Mon03/01/13 at | | | | | | | 1345, Until Discontinued | | | | | | + +-------+ + +---+---+ +-------+ + +---+---+ | Given | 03/01/20 | 37.5 mg | | | | | 13 1:32 | elementa | | | | | PM PDT | l | | | +-------+ + +---+---+ +---+---+ | | | +---+---+ + +-------+ +-------+---+---+ | furosemide (LASIX) tablet 40 mg | Given | 02/29/20 | 40 mg | | | | 40 mg, oral, DAILY, First dose | | 13 10:04 | | | | | on Mon02/28/13 at 0945, Until | | AM PDT | | | | | Discontinued | | | | | | + +-------+ +-------+---+---+ +---+---+ | | | +---+---+ + +-------+ +-------+---+---+ | furosemide (LASIX) tablet 40 mg | Given | 03/02/20 | 40 mg | | | | 40 mg, oral, DAILY, First dose | | 13 8:19 | | | | | on Mon03/01/13 at 1215, Until | | AM PDT | | | | | Discontinued | | | | | | + +-------+ +-------+---+---+ +-------+ +-------+---+---+ | Given | 03/01/20 | 40 mg | | | | | 13 1:32 | | | | | | PM PDT | | | | +-------+ +-------+---+---+ +---+---+ | | | +---+---+ + + + + + +---+ | heparin in D5W IV infusion | Rate/Dos | 02/29/20 | 1,000 | 10 mL/hr | | | 25,000 units/250 mL 1-2,000 | e Change | 13 9:02 | Units/hr | | | | Units/hr (rounded to 0.01-20 | | AM PDT | | | | | mL/hr), intravenous, CONTINUOUS, | | | | | | | Starting 02/27/13 at 1815, | | | | | | | Until [facility] 02/28/13 at 2049 | | | | | | + + + + + +---+ +---------+ + +-------+---+ | New Bag | 02/28/20 | 850 | 8.5 | | | | 13 6:04 | Units/hr | mL/hr | | | | PM PDT | | | | +---------+ + +-------+---+ +---+---+ | | | +---+---+ + +-------+ + +---+---+ | levothyroxine tablet 37.5 mcg | Given | 03/02/20 | 37.5 mcg | | | | 37.5 mcg, oral, BEFORE BREAKFAST, | | 13 6:27 | | | | | First dose on Petra 02/28/13 at | | AM PDT | | | | | 0700, Until Discontinued | | | | | | + +-------+ + +---+---+ +-------+ + +---+---+ | Given | 03/01/20 | 37.5 mcg | | | | | 13 7:58 | | | | | | AM PDT | | | | +-------+ + +---+---+ | Given | 02/29/20 | 37.5 mcg | | | | | 13 8:14 | | | | | | AM PDT | | | | +-------+ + +---+---+ +---+---+ | | | +---+---+ + +-------+ +--------+---+---+ | LORazepam (ATIVAN) tablet 0.5 | Given | 03/01/20 | 0.5 mg | | | | mg 0.5 mg, oral, EVERY 6 HOURS | | 13 4:28 | | | | | NEEDED, Starting [facility] 02/28/13 | | PM PDT | | | | | at 1059, Until 03/02/13 at | | | | | | | 1720, anxiety | | | | | | + +-------+ +--------+---+---+ +-------+ +--------+---+---+ | Given | 02/29/20 | 0.5 mg | | | | | 13 2:44 | | | | | | PM PDT | | | | +-------+ +--------+---+---+ +---+---+ | | | +---+---+ + +-------+ +--------+---+---+ | magnesium chloride SR | Given | 02/29/20 | 128 mg | | | | (SLOW-MAG) tablet 128 mg 128 mg, | | 13 4:03 | | | | | oral, ONCE, 1 dose, [facility] 02/28/13 | | AM PDT | | | | | at 0300 | | | | | | + +-------+ +--------+---+---+ +---+---+ | | | +---+---+ + +-------+ +-------+---+---+ | magnesium chloride SR | Given | 03/02/20 | 64 mg | | | | (SLOW-MAG) tablet 64 mg 64 mg, | | 13 8:19 | | | | | oral, DAILY, First dose on Mon | | AM PDT | | | | | 02/27/13 at 2045, Until | | | | | | | Discontinued | | | | | | + +-------+ +-------+---+---+ +-------+ +-------+---+---+ | Given | 03/01/20 | 64 mg | | | | | 13 10:12 | | | | | | AM PDT | | | | +-------+ +-------+---+---+ | Given | 02/29/20 | 64 mg | | | | | 13 9:10 | | | | | | AM PDT | | | | +-------+ +-------+---+---+ +---+---+ | | | +---+---+ + +---------+ +-----+---+---+ | magnesium sulfate IV 4 g 4 g, | New Bag | 02/29/20 | 4 g | | | | intravenous, ONCE, 1 dose, Petra | | 13 4:03 | | | | | 02/28/13 at 0300 | | AM PDT | | | | + +---------+ +-----+---+---+ +---+---+ | | | +---+---+ + +---------+ +------+---+---+ | morphine injection 1 mg 1 mg, | New Bag | 03/01/20 | 1 mg | | | | intravenous, ONCE, 1 dose, Fri | | 13 2:19 | | | | | 03/01/13 at 0245 | | AM PDT | | | | + +---------+ +------+---+---+ +---+---+ | | | +---+---+ + +---------+ +------+---+---+ | morphine injection 1-2 mg 1-2 | New Bag | 03/01/20 | 2 mg | | | | mg, intravenous, EVERY 4 HOURS | | 13 4:42 | | | | | NEEDED, Starting 02/27/13 at | | AM PDT | | | | | 1827, Until 03/02/13 at 1720, | | | | | | | moderate pain | | | | | | + +---------+ +------+---+---+ +---------+ +------+---+---+ | New Bag | 02/29/20 | 1 mg | | | | | 13 11:58 | | | | | | PM PDT | | | | +---------+ +------+---+---+ | New Bag | 02/29/20 | 1 mg | | | | | 13 11:32 | | | | | | PM PDT | | | | +---------+ +------+---+---+ +---+---+ | | | +---+---+ + +---------+ + + +---+ | NaCl 0.9 % IV 75 mL/hr, | New Bag | 03/01/20 | 75 mL/hr | 75 mL/hr | | | intravenous, CONTINUOUS, Starting | | 13 12:00 | | | | | Petra 02/28/13 at 2130, Until Fri | | AM PDT | | | | | 03/01/13 at 0329 | | | | | | + +---------+ + + +---+ +---+---+ | | | +---+---+ + +-------+ +--------+---+---+ | nitroglycerin (NITRO-BID) 2 % | Given | 02/29/20 | 0.5 | | | | ointment 0.5 inch 0.5 inch, | | 13 8:15 | inches | | | | topical, TWICE DAILY (NTG), First | | AM PDT | | | | | dose on Mon02/27/13 at 2000, | | | | | | | Until Discontinued | | | | | | + +-------+ +--------+---+---+ +-------+ +--------+---+---+ | Given | 02/28/20 | 0.5 | | | | | 13 9:07 | inches | | | | | PM PDT | | | | +-------+ +--------+---+---+ +---+---+ | | | +---+---+ + +-------+ +--------+---+---+ | nitroglycerin (NITRO-BID) 2 % | Given | 02/29/20 | 0.5 | | | | ointment 0.5 inch 0.5 inch, | | 13 2:44 | inches | | | | topical, TWICE DAILY (NTG), First | | PM PDT | | | | | dose on [facility] 02/28/13 at 1430, | | | | | | | Until Discontinued | | | | | | + +-------+ +--------+---+---+ +---+---+ | | | +---+---+ + +---------+ +------+---+---+ | ondansetron (ZOFRAN) injection | New Bag | 02/28/20 | 4 mg | | | | 4 mg 4 mg, intravenous, EVERY 12 | | 13 7:01 | | | | | HOURS NEEDED, Starting Wed | | PM PDT | | | | | 02/27/13 at 1850, Until Sat | | | | | | | 03/02/13 at 1720, nausea/vomiting | | | | | | + +---------+ +------+---+---+ +---+---+ | | | +---+---+ + +-------+ +--------+---+---+ | potassium chloride SR (K-DUR) | Given | 02/28/20 | 20 mEq | | | | tablet 20 mEq 20 mEq, oral, | | 13 9:07 | | | | | ONCE, 1 dose, 02/27/13 at 1930 | | PM PDT | | | | + +-------+ +--------+---+---+ +---+---+ | | | +---+---+ + +-------+ +--------+---+---+ | potassium chloride SR (K-DUR) | Given | 02/29/20 | 40 mEq | | | | tablet 40 mEq 40 mEq, oral, | | 13 4:03 | | | | | ONCE, 1 dose, [facility] 02/28/13 at 0300 | | AM PDT | | | | + +-------+ +--------+---+---+ +---+---+ | | | +---+---+ + +-------+ + +---+---+ | senna-docusate (SENOKOT S) | Given | 03/02/20 | 1 tablet | | | | 8.6-50 mg 1 tablet 1 tablet, | | 13 8:18 | | | | | oral, TWICE DAILY, First dose on | | AM PDT | | | | | 02/27/13 at 2100, Until | | | | | | | Discontinued | | | | | | + +-------+ + +---+---+ +-------+ + +---+---+ | Given | 03/01/20 | 1 tablet | | | | | 13 10:13 | | | | | | AM PDT | | | | +-------+ + +---+---+ | Given | 02/29/20 | 1 tablet | | | | | 13 9:09 | | | | | | AM PDT | | | | +-------+ + +---+---+ +---+---+ | | | +---+---+ + +-------+ +---------+---+---+ | spironolactone (ALDACTONE) oral | Given | 03/02/20 | 12.5 mg | | | | dose 12.5 mg 12.5 mg, oral, | | 13 8:19 | | | | | DAILY, First dose on 03/02/13 | | AM PDT | | | | | at 0900, Until Discontinued | | | | | | + +-------+ +---------+---+---+ +---+---+ | | | +---+---+ documented in this encounter
--- OUTSIDE RECORDS SUMMARY | ~2018-11-14 | XMS | Clinical Summary ---
Demographics + + + | Address | [address] | | | [place] [address] | + + + | Home Phone | | + + + | Preferred Language | Unknown | + + + | Marital Status | | + + + | Mandaeism Affiliation | Unknown | + + + | Race | Unknown | + + + | Ethnic Group | Unknown | + + + Author + + + | Author | [facility] | | | and [place] | + + + | Organization | [facility] | | | and [...] Team Providers + +------+ + | Care Liquid Fertilizer Servicer Name | Role | Phone | + [...] +--------+ +---------+--------+ | MEDICARE | [employer] | [id number] | 10/18/19 | [phone] | | Medica | | | RE | | 11-Pre | 5 | | re | | | PART A | | sent | | | | | | AND B | | | | | | + +--------+ +--------+ +---------+--------+ | [employer] | B[employer] | [id number] | | [phone] | | Indemn | | | S LIFE | | 016-Pr | 4 | | ity | | | INS | | esent | | | | + +--------+ +--------+ +---------+--------+ | [facility] | [employer] | [id number] | 06/19/19 | | | Indemn | [...] | | claudia | | | [address] ([place]) | [phone] | + +--------+ +--------+ + + Advance Directives Patient has advance care planning documents on file. For more information, please contact:[place] [address]
--- OUTSIDE RECORDS SUMMARY | ~2018-11-14 | XMS | Encounter Summary ---
Demographics + + + | Address | [address] | | | [place] [address] | + + + | Home Phone | | + + + | Preferred Language | Unknown | + + + | Marital Status | Single | + + + | Yarsanism Affiliation | Unknown | + + + | Race | Unknown | + + + | Ethnic Group | Unknown | + + + Author + + + | Author | [employer] | + + + | Organization | [facility] | + + + | Address [...] Team Providers + +------+ + | Care Day Care Provider Name | Role | Phone | + +------+ + | Clinic Daquan Castaneda | PCP | | + +------+ + Reason for Visit + + + | Reason | Comments | + + + | Automatic | In office | | Implantable | | | Cardioverter | | | Defibrillator | | + + + Encounter Details +--------+ + + + + | Date | Type | Department | Care Team | Description | +--------+ + + + + | 09/25/ | Documentati | [facility] | | Automatic | | 2019 | on Only | [facility] | | Implantable | | | | [address] | | Cardioverter | | | | Way [address] | | Defibrillator (In | | | | [place] [address] | | office ) | | | | [phone] | | | +--------+ + + + [...] + + + as of this encounter Progress Notes Fer Martinez - 09/25/2018 1:30 PM PDTFormatting of this note may be different from the o gypys. ICD INTERROGATION REPORT Name: Jennifer Boyce PCP: [facility] : 1945 Primary cardiology provider: Zeyad Hernandez Primary electrophysiology provider: Eva Device oim architect: Medtronic Device type: Dual chamber Battery Longevity: 4.1-4.4 years INTERROGATION RESULTS: Please see the full interrogation report attached RV Pacin% Lead function: Lead impedance and threshold value trends have been reviewed and are are acc eptable based on most recent evaluation. RV Threshold: .5V @ .5ms RV Amplitude: 7.9 mV Known history of atrial flutter or atrial fibrillation: No Current antithrombotic therapy including: N/A Mode switches: None. VT/VF Detections: None. Programming changes: Temporary programming changes were made for testing and restored to or iginal values. No permanent changes were made. Pacemaker dependent: No Mode of interrogation: Seen in cardiac device clinic CHF: Congestive heart failure parameters and trends have been reviewed and Claudevue shows 13 days of increased impedance in june 11 days in august and 12 days in september Follow up: The next scheduled interrogation will be in 5 weeks via remote transmission. Additional comments: None. IMPRESSION: 1. Normal ICD function. 2. No atrial fibrillation/flutter noted. 3. No VT/VF therapies have been given since the last interrogation. Testing performed by: Armando/ Rishi Associated attestation - Lynda Romero NP - 10/11/2018 12:32 PM PDTAppropriate device funct ion CHRISTINE Bro in this encounter Plan of Treatment +--------+ [...]
--- OUTSIDE RECORDS SUMMARY | ~2018-11-14 | XMS | Encounter Summary ---
Demographics + + + | Address | [address] | | | [place] [address] | + + + | Home Phone | | + + + | Preferred Language | Unknown | + + + | Marital Status | Single | + + + | Islam Affiliation | Unknown | + + + | Race | Unknown | + + + | Ethnic Group | Unknown | + + + Author + + + | Author | [employer] | + + + | Organization | [facility] | + + + | Address [...] Team Providers + +------+ + | Care Device Processing Engineer Name | Role | Phone | + [...] | | [address] | [place] [address] | graft of shawnee | | | | [place] [address] | [phone] | heart without angina | | | | [phone] | | pectoris (Primary | | | [...] artery disease involving coronary bypass graft of sh[place] heart without angina | | pectoris - [...]
--- OUTSIDE RECORDS SUMMARY | ~2018-11-14 | XMS | Clinical Summary ---
Demographics + + + | Address | [address] | | | [place] [address] | + + + | Home Phone | | + + + | Preferred Language | Unknown | + + + | Marital Status | Single | + + + | Taoism Affiliation | Unknown | + + + | Race | Unknown | + + + | Ethnic Group | Unknown | + + + Author + + + | Author | [employer] | + + + | Organization | [facility] | + + + | Address [...] Team Providers + +------+ + | Care Change Lead Name | Role | Phone | + +------+ + | Sean Daquan Castaneda | PP | | + +------+ + Allergies No Known Allergies Current Medications + + +--------+---------+------+------+-------+ | Prescription | Sig. | Disp. | Refills | Star | End | Statu | | | | | | t | Date | s | | | | | | Date | | | + + +--------+---------+------+------+-------+ | traZODone | Take 50 mg by mouth | | | | | Activ | | (DESYREL) 50 MG | nightly. | | | | | e | | tablet | | | | | | | + + +--------+---------+------+------+-------+ | fluticasone | 1 spray by Each Nare | | | | | Activ | | (FLONASE) 50 MCG/ACT | route daily as | | | | | e | | nasal | needed. | | | | | | + + +--------+---------+------+------+-------+ | simvastatin | Take 20 mg by mouth | 90 | 3 | 11/0 | | Activ | | (ZOCOR) 40 MG tablet | nightly. | tablet | | 5/20 | | e | | | | | | 15 | | | + + +--------+---------+------+------+-------+ | Cholecalciferol | Take 2,000 Units by | | | | | Activ | | 2000 UNITS CAPS | mouth daily. | | | | | e | + + +--------+---------+------+------+-------+ | levothyroxine | Take 50 mcg by mouth | | | | | Activ | | (SYNTHROID) 50 MCG | every morning | | | | | e | | tablet | before breakfast. | | | | | | + + +--------+---------+------+------+-------+ | tiotropium | Inhale 18 mcg into | | | | | Activ | | (SPIRIVA) 18 MCG | the lungs daily. | | | | | e | | inhalation capsule | | | | | | | + + +--------+---------+------+------+-------+ | losartan (COZAAR) | Take 1 tablet by | 90 | 3 | 03/2 | | Activ | | 25 MG tablet | mouth daily. | tablet | | 1/20 | | e | | | | | | 18 | | | + + +--------+---------+------+------+-------+ | sertraline | Take 100 mg by mouth | | | | | Activ | | (ZOLOFT) 100 MG | daily. | | | | | e | | tablet | | | | | | | + + +--------+---------+------+------+-------+ | | Take 1 tablet by | 60 | 3 | 11/0 | | Activ | | sacubitril-valsartan | mouth 2 (two) times | tablet | | 7/20 | | e | | (ENTRESTO) 24-26 MG | daily. | | | 18 | | | | per tablet | | | | | | | + + +--------+---------+------+------+-------+ | torsemide | Take 1 tablet by | 30 | 11 | 06/19 | 06/19 | Activ | | (DEMADEX) 10 MG | mouth daily. | tablet | | 0/20 | 0/20 | e | | tablet | | | | 19 | 20 | | + + +--------+---------+------+------+-------+ | carvedilol (COREG) | Take 1 tablet by | 60 | 11 | 02/2 | 02/2 | Activ | | 6.25 MG | mouth 2 (two) times | tablet | | 8/20 | 8/20 | e | | tabletIndications: | daily with meals. | | | 19 | 20 | | | Cardiomyopathy, | | | | | | | | ischemic | | | | | | | + + +--------+---------+------+------+-------+ | aspirin 81 MG | Take 81 mg by mouth | | | | | Activ | | tablet | daily. | | | | | e | + + +--------+---------+------+------+-------+ Active Problems + + + | Problem | Noted Date | + + + | Chronic combined systolic and diastolic heart failure (HCC) | 09/06/2017 | + + + | S/P CABG (coronary artery bypass graft) | 09/22/2016 | + + + | Ischemic cardiomyopathy | 04/03/2014 | + + + + + | Last Assessment & Plan: Ischemic CM, LVEDd 69mm, LVEF 30-35%. | | Last Echo, 11/11/2015 ([facility]): LVEDd 69mm, large area of | | anteroseptal-apical akinesis, inferior and lateral segments are | | hypokinetic, LVEF 30-35%, mild bi-Atrial enlargement, pacing | | catheter in RV, moderate MR, moderate TR, mild PI, est systolic | | PAP 32-37mmHg. | + + + + + | CAD (coronary artery disease) | 04/03/2014 | + + + + + | Last Assessment & Plan: 3V-CAD/ischemic CM, Hx CABG, LVEDd | | 69mm, LVEF 30-35%. 70yo WF, recently had an episode of | | increased peripheral edema, increased shortness of breath, and 10 | | lb weight gain and ER admit 05/28/2016. Treated with diuresis | | and fluid restriction and now SBP 72 mmhg and weight 144 lbs , | | down from 152 lbs when last seen. She reports feeling tired and | | weakShe reports no SOB today, no edema , and lungs clear but | | struggling with fluid restriction . She was tolerating walking a | | mile per day prior to bad weather with no complaints of chest | | pain, palpitations, or dyspnea.Recent echocardiogram suggests her | | cardiomyopathy is stable, perhaps an increase in her ejection | | fraction on medical therapy. I have given her suggestions for | | her fluid intake and methods to limit salt, which are hopefully | | less onerous for her and easier to follow. I've asked her to | | continue to weigh herself daily and call us if weight more than 5 | | pounds. I have continued care on her current dose of furosemide | | and carvedilol, but has stopped her irbesartan today. I have | | asked her to follow-up with nurse practitioner in one month, | | Yanni Wall, whom she met today. Our plan is to restart | | that irbesartan and once her blood pressure has improvedHx CABG: | | 01/05/2011, CABG*4 (OLSON to LAD, SVG to OM, SVG to PDA, SVG to | | LPLB).Hx PCI/stent: 03/01/2013, LCx (2.5*33mm Xience KASIA).Hx | | Pacemaker/ICD: ICD, [facility] [id number], SN: [id number].Last Cath, | | 03/01/2013: OLSON to LAD OK, SVG to RCA OK, SVG to OM OK, SVG to | | LPLB occl, LCx receives a 2.5*33mm Xience KASIA.Last Echo, | | 11/11/2015 ([facility]): LVEDd 69mm, large area of | | anteroseptal-apical akinesis, inferior and lateral segments are | | hypokinetic, LVEF 30-35%, mild bi-Atrial enlargement, pacing | | catheter in RV, moderate MR, moderate TR, mild PI, est systolic | | PAP 32-37mmHg.Last stress test: naECG, 05/28/2016 ([facility]): | | sinus rhythm, 76bpm, occ PAC, LAE, old theresa-septal SD, diffuse | | non-spec ST-T changes, low voltage.Lab, 05/28/2016: Trop-T: | | <0.010, BNP: 809 Liver enzymes NML, K: | | 3.6, BUN/Cr: 31/1.2 (GFR 46), glu: 128 | | WBC: 6.5, H/H: 13.7/42.2, plt: 147 | + + + + + | AICD (automatic cardioverter/defibrillator) present | 06/28/2013 | + + + + + | Overview: Overview: [facility] VR 1231 40Q ICDLast | | Assessment & Plan: Normal function. Last Assessment & Plan: | | ICD implanted 10/2011, SJM [id number], SN: [id number]. Followed by | | [facility]. Patient denies shocks.Last interrogation, | | 08/24/2015: device stable, no VT/VF, no A fib/flutter. | | Last Assessment & Plan: ICD implanted 10/2011, SJM [id number], SN: [id number]. Followed by [facility]. Patient denies shocks. | |Last interrogation, 08/24/2015: device stable, no VT/VF, no A fib/flutter. | + + + + + | Hyperlipidemia | 06/28/2013 | + + + + + | Last Assessment & Plan: Hyperlipidemia, continue current meds | | at current dose (simvastatin).Labs 11/03 sodium 138, | | potassium 4.8, chloride 100, glucose 107, BUN 14, creatinine | | 0.93, liver functions WNL. GFR 60Lipids: Cholesterol 140, | | triglycerides 71, HDL 57, LDL 69. | + + Resolved Problems + + + + | Problem | Noted | Resolved | | | Date | Date | + + + + | Hypotension, unspecified | 06/14/20 | | | | 13 | 8 | + + + + | Other specified forms of chronic ischemic heart disease | 06/14/20 | | | | 13 | 8 | + + + + Encounters +--------+ + + + + | Date | Type | Specialty | Care Team | Description | +--------+ + + + + | 11/14/ | Office | | Zeyad Hernandez, | Coronary artery | | 2019 | Visit | | MD | disease involving | | | | | | coronary bypass | | | | | | graft of teller | | | | | | heart without angina | | | | | | pectoris (Primary | | | [...] | | | | llator) present | +--------+ + + + + | 10/30/ | Documentati | | Fer Martinez | Automatic | | 2019 | on Only | | | Implantable | | | | | | Cardioverter | | | | | | Defibrillator | | | | | | (Remote ) | +--------+ + + + + | 10/10/ | Telephone | | Amita Spencer MA | | | 2018 | | | | | +--------+ + + + + | 09/25/ | Documentati | | | Automatic | | 2018 | on Only | | | Implantable | | | | | | Cardioverter | | | | | | Defibrillator (In | | | | | | office ) | +--------+ + + + + | 08/16/ | Orders Only | | Yanni Wall | Cardiomyopathy, | | 2019 | | | CHRISTINE Spears | ischemic | +--------+ + + + + from Last 3 Months Family History + + +------+ + | Medical History | Relation | Name | Comments | + + +------+ + | Hypertension | Brother | | | + + +------+ + | Cancer | Father | | | + + +------+ + | High cholesterol | Father | | | + + +------+ + | Hypertension | Father | | | + + +------+ + | Arthritis | Mother | | | + + +------+ + | Cancer | Mother | | | + + +------+ + | High cholesterol | Mother | | | + + +------+ + | Hypertension | Mother | | | + + +------+ + | Arrhythmia | Sister | | | + + +------+ + | Heart disease | Sister | | | + + +------+ + | High cholesterol | Sister | | | + + +------+ + | Hypertension | Sister | | | + + +------+ + + +------+ + + | Relation | Name | Status | Comments | + +------+ + + | Brother | | Alive | | + +------+ + + | Father | | Alive | 94 yrs. old | + +------+ + + | Mother | | | | | | | (Age | | | | | 89) | | + +------+ + + | Sister | | Alive | | + +------+ + + Social [...] on file | | + + + Last Filed Vital Signs + + + + | Vital Sign | Reading | Time Taken | + + + + | Blood Pressure | 112/64 | 11/14/2018 10:51 AM PDT | + + + + | Pulse | 76 | 11/14/2018 10:51 AM PDT | + + + + | Temperature | 36.5 C (97.7 F) | 04/27/2011 9:47 AM PST | + + + + | Respiratory Rate | 18 | 06/28/2018 9:39 AM PST | + + + + | Oxygen [...] AM PDT | + + + + Plan of Treatment +--------+ + + + + | Date | Type | Specialty | Care Team | Description | +--------+ + + + + | 12/04/ | Documentati | | | | | 2018 | on Only | | | | +--------+ + + + + | 01/08/ | Documentati | | | | | 2018 | on Only | | | | +--------+ + + + + + + + + + | Health Maintenance | Due Date | Last Done | Comments | + + + + + | Vaccine: | | | | | Dtap/Tdap/Td (1 - | 5 | | | | Tdap) | | | | + + + + + | Breast Cancer | | | | | Screening | 6 | | | | (Mammogram) | | | | + + + + + | Colon Cancer | | | | | Screening | 6 | | | | (Colonoscopy) | | | | + + + + + | Vaccine: Zoster (1 | | | | | of 2) | 6 | | | + + + + + | DEXA SCAN SCREENING | | | | | | 1 | | | + + [...] filefrom Last 3 Months Insurance + +--------+ +------+-------+ + | Payer | Benefi | Subscriber | Type | Phone | Address | | | t Plan | ID | | | | | | / | | | | | | | Group | | | | | + +--------+ +------+-------+ + | MEDICARE | MEDICA | [id number] | | | [address] | | | RE | | | | [place] [address] | | | IP-OP | | | | | + +--------+ +------+-------+ + | COMMERCIAL OTHER | BANKER | [id number] | | | | | | S LIFE | | | | | | | AND | | | | | | | CASUAL | | | | | | | TY | | | | | + +--------+ +------+-------+ + + +--------+ +--------+ + + | Guarantor Name | Accoun | Relation to | Date | Phone | Billing Address | | | t Type | Patient | of | | | | | | | | | | + +--------+ +--------+ + + | MILEY BOYCE | Person | Self [birth year] Home: | [address] | | | al/Matt | | 1946 | [phone] [place] | | | [place]ia | | | [address] | [phone] | + +--------+ +--------+ + +
--- OUTSIDE RECORDS SUMMARY | ~2018-11-14 | XMS | Encounter Summary ---
Demographics + + + | Address | [address] | | | [place] [address] | + + + | Home Phone | | + + + | Preferred Language | Unknown | + + + | Marital Status | Single | + + + | Synagogue Affiliation | Unknown | + + + | Race | Unknown | + + + | Ethnic Group | Unknown | + + + Author + + + | Author | [facility] [employer] | + + + | Organization | [facility] [employer] | + + + | Address [...] Team Providers + +------+ + | Care Mobility Engineer Name | Role | Phone | [...] + | 09/25/ | Documentati | [facility] | | Automatic | | 2019 | on Only | [facility] | | Implantable | | | | [address] | | Cardioverter | | | | Way [address] | | Defibrillator (In | | | | [place] [address] | | office ) | | | | [phone] | | | +--------+ + + + [...] note may be different from the o gypsy. ICD INTERROGATION REPORT Name: Jennifer Boyce PCP: [facility] : 1945 Primary cardiology provider: Zeyad Hernandez Primary electrophysiology provider: Eva Device room cleaner: Medtronic Device type: Dual chamber Battery Longevity: [...]
--- OUTSIDE RECORDS SUMMARY | ~2018-11-14 | XMS | Encounter Summary ---
Demographics + + + | Address | [address] | | | [place] [address] | + + + | Home Phone [...] + + + | Author | [employer] | + + + | Organization | [facility] | + + + | Address [...] Team Providers + +------+ + | Care Duct Maker Name | Role | Phone | + [...] | 2019 | on Only | [facility] | | Implantable | | | | [address] | | Cardioverter | | | | [place], [place] | | Defibrillator | | | | [address] | | (Remote ) | | | | [phone] | | | +--------+ + + + [...]
--- OUTSIDE RECORDS SUMMARY | ~2018-11-14 | XMS | Encounter Summary ---
Demographics + + + | Address | [address] | | | [place] [address] | + + + | Home Phone | | + + + | Preferred Language | Unknown | + + + | Marital Status | Single | + + + | Samaritan Affiliation | NRP | + + + | Race | White | + + + | Ethnic Group | Not or | + + + Author + + + | Author | [facility] | + + + | Organization | [facility] | + + + | Address [...] [place] | | | | | [address] | | + + + + + Care Team Providers + +------+ + | Care Watermelon Harvesting Supervisor Name | Role | Phone | + +------+ + | Gloria Morales MD | PCP | Unavailable | + +------+ + Encounter Details +--------+ + + + + | Date | Type | Department | Care Team | Description | +--------+ + + + + | 02/28/ | Results | Stress | Other, Faculty | | | 2012 | Only | Echocardiography | [phone] | | | | | [address] | | | | | | [facility] | | | | | | Mailcode: [id number] | | | | | | Outpatient Clinic | | | | | | [facility], | | | | | | [place] [address] | | | | | | [phone] | | | +--------+ + + + [...] DEPT OF | [address] | [place], [place] | | | CARDIOLOGY | [address] | [address] | | + + + + + documented in this encounter Visit Diagnoses Not on filedocumented in this encounter"
--- OUTSIDE RECORDS SUMMARY | ~2018-11-14 | XMS | Encounter Summary ---
Demographics + + + | Address | [address] | | | [place] [address] | + + + | Home Phone | | + + + | Preferred Language | Unknown | + + + | Marital Status | Single | + + + | Restoration Affiliation | NRP | + + + | Race | White | + + + | Ethnic Group | Not or | + + + Author + + + | Author | [facility] | + + + | Organization | [facility] | + + + | Address | Unknown | + + + | Phone | Unavailable | + + + Support + + + + + | Name | Relationship | Address | Phone | + + + + + | Herber Greenberg | ECON | Unknown | | + + + + + | Siobhan Boyce | ECON | [address] | | | | | [place] | | | | | [address] | | + + + + + Care Team Providers + +------+ + | Care Hosiery Pairer Name | Role | Phone | + [...] [address] | | | | | | [place] | | | | | | [address] | | | | | | [phone] | | | +--------+ + + + [...]
--- OUTSIDE RECORDS SUMMARY | ~2018-11-14 | XMS | Encounter Summary ---
Demographics + + + | Address | [address] | | | [place] [address] | + + + | Home Phone | | + + + | Preferred Language | Unknown | + + + | Marital Status | Single | + + + | Advent Affiliation | NRP | + + + | Race | White | + + + | Ethnic Group | Not or | + + + Author + + + | Author | [facility] | + + + | Organization | [facility] | + + + | [...] [place] | | | | | [address] | | + + + + + Care Team Providers + +------+ + | Care First Grade Teacher Name | Role | Phone | + [...] Mailcode: | | | | | | [place], [place] | [address] | | | | | | [address] | for Health | | | | | | Phone: | and Healing | | | | | | [phone] | [place], [place] | | | | | | Fax: | [address] | | | | | | [phone] | Phone: | | | | | | | [phone] | | | | | | | Fax: | | | | | | | [phone] | +--------+--------+ + + + + Consultation [...] Mailcode: | | | | | | [place], [place] | [address] | | | | | | [address] | for Health | | | | | | Phone: | and Healing | | | | | | [phone] | [place], [place] | | | | | | Fax: | [address] | | | | | | [phone] | Phone: | | | | | | | [phone] | | | | | | | Fax: | | | | | | | [phone] | +--------+--------+ + + + + Diagnostic [...] | | C | [address] | [address] | | | | | ECHOCARDIOGR | [place] | Mailcode: | | | | | AM, ADULT | Rd | [address] | | | | | | [place], [place] | [address] | | | | | | [address] | Building | | | | | | Phone: | [place], [place] | | | | | | [phone] | [address] | | | | | | Fax: | Phone: | | | | | | [phone] | [phone] | +--------+--------+ + + + + Diagnostic Testing (Routine) +--------+--------+ + + + + | Status | Reason | Specialty | Diagnoses / | Referred By | Referred To | | | | | Procedures | Contact | Contact | +--------+--------+ + + + + | Closed | | Cardiology | Procedures | [place], | Car Echo | | | | | | Joanie Gambino, | [facility] [address] | | | | | TRANSTHORACI | PA-C [address] | [address] | | | | | C | [address] | [facility] | | | | | ECHOCARDIOGR | [place] | Mailcode: | | | | | AM, ADULT | Rd | [address] | | | | | | [place] | [address] | | | | | | [address] | Building | | | | | | Phone: | [place], [place] | | | | | | [phone] | [address] | | | | | | Fax: | Phone: | | | | | | [phone] | [phone] | +--------+--------+ + + + + Reason [...] + + | 02/27/ | Hospital | [facility] [address] | Dimitri Valdez | | | 2012 - | Encounter | [address] | MD Anali [address] | | | | | [id number] [facility] | [place], [place] | | | 03/02/ | | [facility], | [address] | | | 2012 | | [place] [facility] | [phone] | | | | | [phone] | | | +--------+ + + + [...] for pa tent GENNA SVG and critical [place] mid LCx stenosis which was treated with KASIA. Echo shows ve ry severe LV dysfunction with global pattern. She is being discharged today. Dimitri Valdez MD arnp [facility] DEPARTMENT: Place of Service: [address] [place] [address] Date of Service: 03/02/2013 CSN: [id number] Suggested Modifiers: GC-Resident Hollie Pichardo ACNP - 03/01/2013 1:45 PM PDTFormatting of this note might be different from the [facility]. INPATIENT CARDIOLOGY DISCHARGE SUMMARY PCP: Gloria Morales MD Referring Physician: Tiffanie Murphy MD Primary/Outpatient Coppersmith Apprentice: Aneta Marcano MD Inpatient Attending Physician: Dimitri [...] hypertension, hyperlipidemia, and COPD who presented to [facility] in [place], [place] with worsening chest pain and nausea ruled in for NSTEMI and admitted to [facility] for further management. During her stay the following issues were addressed: 1. CAD/NSTEMI: History of significant CAD with diffuse 4v disease s/p CABG (OLSON to LAD, SV G to PDA, SVG to LpLA, SVG to marginal) in 2010. Chest pain with T-wave inversion in septal lateral leads with troponin elevation at outside hospital to 2.61 consistent with NSTEMI. EC G at [facility] revealed decreased r-wave voltage in inferior [...] ill parents (in hospice) and recently from [facility] with financial troubles. Stress reduction as able. [...] in 10/2011 for reduced EF. TTE at [facility] shows reduced EF from prior, now <20%. [...] under tongue and allow to dissolve. Ad hospital liaison every 5 minutes for a maximum of [...] Histori jem Med fluticasone 50 mcg/actuation Nasal [place], Suspension Instill 2 sprays into each nostril [...] visit with GLORIA MORALES MD. Contact information [facility] [address] [place] [address] Schedule an appointment as soon as possible for a visit with ANETA MARCANO DO. (Make an ap pointment within one week of discharge - facility called and closed today until 03/04) Contact information [facility] Flavio MIDDLETON [address] [place] [address] Discharge Labs: Complete Blood Count Lab [...] tobacco use Core Measures: Diagnosis of Acute NE: Yes. Patient is on Aspirin at discharge.. [...] kg (153 lb) Discharging Provider: Hollie Thorne [facility], Cardiovascular Medicine Attending Physician: Dimitri Valdez MD, [...] nostril | | | | | | [place], | once daily. Shake | | | [...] - 03/01/2013 9:11 AM PDT INPATIENT INTERVENTIONAL UNIVERSITY EXTENSION SPECIALIST BRIEF PROGRESS NOTE Hospital Day:2 Author: Gaby [...] CCU team. MD GABY Bejarano MD Interventional Bricklayer Sewer Dimitri Rosas MD - 03/01/2013 7:39 AM PDTAttending Note I personally interviewed the patient, performed the kline elements of the physical examinatio n, and personally formulated the assessment and plan with the ACQUISITION SPECIALIST. See ACQUISITION SPECIALIST note for details. Successful LCx PCI yesterday; still with some pulmonary crackles. Diuresis today and d/c to crump. Dimitri Valdez MD arnp Cardiovascular Division [facility] DEPARTMENT: Place of Service: [address] [place] [address] Date of Service: 03/01/2013 CSN: [id number] Hollie Pichardo ACNP - 03/01/2013 7:39 AM PDTFormatting of this note might be different from the alycia machuca P Cardiology Progress Note Date: 03/01/2013 Hospital Day: 2 Attending Coppersmith Apprentice: Bhavin Valdez MD Provider: DANNIE Escalera ID: Jennifer Boyce is a 67 year old female with history of CAD s/p 4 vessel CABG in 12/2010, i schemic CM EF 3035% (2011) s/p ICD placement in 10/2011, history of tobacco use, HTN, and HLD , COPD who presented to [facility] in [facility], [place] with worsening chest pain and nausea ruled in for NSTEMI and admitted to [facility]. Interval Events: --Coronary angiogram via RFA: [...] ain, now CP/dypnea free after stent to [place] Cx lesion. -- Anticoagulation: Received Heparin and Integrilin per ACS protocol now discontinued -- Antiplatelet:Continue ASA 325 mg daily x 1 month then decrease to 81 daily. Received 600 mg Plavix in cath lab technologist yesterday, continue 75 mg daily x 1 [...] ill parents (in hospice) and recently from [facility] with financial troubles. #Acute on chronic systolic [...] patient was interviewed and examined by attending transformer mechanic, Dr. Bhavin Gillette, who is in agreement with above described findings, assessment and plan. Hollie Thorne, [facility] Cardiovascular Medicine Pager [phone] Dorina Thibodeaux MD - 03/01/2013 6:17 AM [...] procedure. Continue current post-cath dianna MANCILLA MD [facility] [id number] [address] Justus Tovar MD - 8:37 PM PDTCardiology Preliminary Procedure Note (Full report to follow) Primary Care Provider: Gloria Morales MD Referring Provider: Tiffanie Murphy MD Level Glass Forming Machine Operator Staff: Amrit Sharma M.D. Procedure(s): Coronary Angiography [...] Manual compression when PTT is acceptable. Site: [facility] Recommendations: Usual post cath care. Bed rest for 6 hours after hemostasis is obtained. ASA indefinitely. Continue Eptifibatide (Integrilin) for 6 Hours. Clopidogrel 75 mg once daily for at least 12 months. Justus Dawson MD Bricklayer Sewer Pager [phone] lfred Rooney - 02/28 1:03 PM PDTTransthoracic echocardiogram completed. Final report to follow. Doc Villar M D - 02/28/2013 8:32 AM PDT INTERVENTIONAL CARDIOLOGY Pre Procedure History and Physical PCP: No primary provider on file. Referring Coppersmith Apprentice: Tiffanie Murphy MD from [facility] and Dr. Natalie amos from [facility] CCU. Cath Attending:Amrit Sharma M.D. Brief HPI: Ms. Boyce is a 67 year old former smoker woman with history of CAD s/p 4-v CABG on 01/05/2011 at [facility] (OLSON to LAD, SVG to PDA, marginal, and L posterolateral artery), ICM (E F 30-35%) s/p ICD placement in 10/2011, HTN, HLD, and COPD who was transferred to [facility] CCU [facility] on 02/27 pm for further treatment of [...] and worsening dyspnea. She pres ented to [facility] ED in [facility], [place] shortly after CP started. Received SL [...] urs later. Troponin continues to rise at [facility]. Received ASA, enaxoparin, furosemide, carvedilol, morphine, NTG, lorazepam, and pantoprazol e at [facility]. CP resolved before transfer to [facility]. Since arrival here, has been having [...] with SCD at age of 34. Prior NE: yes Prior Heart Failure: yes Prior Valve [...] CAD s/p 4-v CABG on 01/05/2011 at [facility] (OLSON to LAD, SVG to PDA, marginal, and L posterolateral artery), ICM (E F 30-35%) s/p ICD placement in 10/2011, HTN, HLD, and COPD who was transferred to [facility] CCU [facility] on 02/27 pm for further treatment of [...] None Doc Mcelroy Internal Medicine Resident Pager [phone] Phuong Rosas MD - 02/28/2013 7:17 AM PDTAttending Note I personally interviewed the patient, performed the kline elements of the physical examinatio n, and personally formulated the assessment and plan with the ACQUISITION SPECIALIST. See ACQUISITION SPECIALIST note for details. Cath today. Echo shows severe LVE and LV dysfunction. Dimitri Valdez MD arnp Cardiovascular Division [facility] DEPARTMENT: Place of Service: [address] [place] [address] Date of Service: 02/28/2013 CSN: [id number] Suggested Modifiers: GC-Resident Hollie Pichardo ACNP - 02/28/2013 7:17 AM PDTFormatting of this note might be different from the alycia drummond. P Cardiology Progress Note Date: 02/28/2013 Hospital Day: 1 Attending Coppersmith Apprentice: Bhavin Valdez MD Provider: DANNIE Escalera ID: Jennifer Boyce is a 67 year old female with history of CAD s/p 4 vessel CABG in 12/2010, i schemic CM EF 3035% (2011) s/p ICD placement in 10/2011, history of tobacco use, HTN, and HLD , COPD who presented to [facility] in [facility], [place] with worsening chest pain and nause [...] etiology likely acute thrombosis in graft vs. [place] vessel disea se. -- NPO for cardiac [...] ill parents (in hospice) and recently from [facility] with financial troubles. #Acute on chronic systolic heart failure: NYHA Class II. TTE Per old chart notes EF 30-35% with septal, anterolateral, and apical hypokinesis with moderate MR and TR. Recent increased SOB and 10# weight gain and increased use of lasix consistent with decompensation. NT Pro B ACQUISITION SPECIALIST 6300 here. Lasix given at outside hospital [...] patient was interviewed and examined by attending transformer mechanic, Dr. Valdez, who is in agreement with above described findings, assessment and plan. Hollie Thorne, [facility] Cardiovascular Medicine Pager [phone] documented in thi s encounter Plan of [...] 1.77 m2DATE OF PROCEDURE:February 28, | | 2012MRN:[id number]:1945PHYSICIAN:Amrit Sharma M.D., F.A.C.C.Refrigerator Room Clerk | | Professor, MedicineDivision of Cardiovascular MedicineDirector, Cardiac Catheterization | | LaboratoriesFELLOW:Gaby Durham M.D.Interventional FellowDivision of Cardiovascular | | MedicineREFERRING PHYSICIAN:Dimitri Valdez M.D.Professor, MedicineAssociate Chief, | | EducationDivision of Cardiovascular MedicineSUMMARY:1. Severe 3 vessel [place] coronary | | artery disease including 95% [...] catheterEagle Eye Gold IVUS catheterWIRE:0.014" x 180-cm Breadtrip soft wireBALLOON:2.0 x | | 15-mm TREK [...] The stent was then evaluated with an Myrio IVUS catheter. The stent was felt to [...] | | mLFLUOROSCOPY TIME:22.10 minutesFLUOROSCOPY DAP:9,673.0 cGy [id number]:Eptifibatide | | dripClopidogrel 600 mg IVFentanyl 75 [...] DISPOSITION:1. Usual post catheterization care.2. Transfer to [facility]. Sheath to be | | withdrawn once [...] of this report.Amrit Sharma M.D., | | AuryLead Refinery Supervisor, MedicineDisouth georgia medical center lanierion of Cardiovascular MedicineDirector, | | Cardiac Catheterization [facility]: 02/28/2013T: 03/03/2013 6:20 [id number] | |reviewed and the culprit vessel was [...] The stent was then evaluated with an Runnels | |Eye Gold IVUS catheter. The stent [...] post catheterization care. | |2. Transfer to [facility]. Sheath to be withdrawn once PTT is [...] | | |Amrit Sharma M.D., Aury | |Lead Refinery Supervisor, Medicine | |Division of Cardiovascular Medicine | |Director, Cardiac Catheterization Laboratories | | | |CLOTILDE/sunny | | | | P | |[id number] | + + CBC (HEMOGRAM) ONLY (03/02/2013 [...] [facility] | [address] | [place] [address] | | | SERVICES, CORE | PARK [...] + | [facility] | [address] | [place] [address] | | | SERVICES, CORE | PARK [...] | | | LABORATORY | | | ALBANIAN | | | SERVICES, | | | [...] | + + + + + | [facility] | [address] | [place] [address] | | | SERVICES, [facility] | [address] | | | + [...] [facility] | [address] | [place], [place] | | | DASHAWN POINT OF CARE | [address] | [address] | | | TESTS | | | [...] + + + | [facility] | [address] | [place], [place] | | | FOUZIA TAMEZ OF [place]IE | [address] | [address] | | | TESTS | | | [...] [facility] | [address] | [place] [address] | | | SERVICES, LELAND | ELEANOR [...] [facility] | [address] | [place] [address] | | | SERVICES, CORE | PARK [...] [facility] | [address] | [place] [address] | | | SERVICES, CORE | PARK [...] | | | LABORATORY | | | ALBANIAN | | | SERVICES, | | | [...] the MDRD equation recommended by the | [facility] | | National Kidney Disease Education Program. [...] | + + + + + | [facility] | [address] | [place] [address] | | | LELAND ZACARIAS | ELEANOR [...] VELAZQUEZ | | | | | | ([id number]) on 03/01/2013 | | | | | | 6:31:43 PM | | | | + + + + + + + + | Specimen | + + | | + + + + + | Narrative | Performed At | + + + | Please click | [facility] | | on view image for the detailed interpretation from [facility] results. | CARDIOLOGY | + + + + + | Procedure Note | + + | Interface, Cardiology Results - 03/01/2013 6:32 PM PDT Please click on view image | | for the detailed interpretation from [facility] results. | + + + + + + + | Performing | Address | City/State/Zipcode | Phone Number | | Organization | | | | + + + + + | [facility] | [address] | [place], [place] | | | CARDIOLOGY | [address] | [address] | | + + + + + [...] VELAZQUEZ | | | | | | ([id number]) on 03/01/2013 | | | | | | 6:30:50 PM | | | | + + + + + + + + | Specimen | + + | | + + + + + | Narrative | Performed At | + + + | Please click | [facility] | | on view image for the detailed interpretation from [facility] results. | CARDIOLOGY | + + + + + | Procedure Note | + + | Interface, Cardiology Results - 03/01/2013 6:31 PM PDT Please click on view image | | for the detailed interpretation from [facility] results. | + + + + + + + | Performing | Address | City/State/Zipcode | Phone Number | | Organization | | | | + + + + + | [facility] | [address] | [place], [place] | | | CARDIOLOGY | [address] | [address] | | + + + + + [...] [facility] | [address] | [place], [place] | | | FOUZIA TAMEZ OF ALLIE | [address] | [address] | | | TESTS | | | [...] | + + + + + | [facility] | [address] | [place] [address] | | | SERVICES, CORE | PARK [...] LABORATORY | [address] | [place] [address] | | | SERVICES, CORE | PARK [...] | | | LABORATORY | | | ALBANIAN | | | SERVICES, | | | [...] | + + + + + | [facility] | [address] | [place] [address] | | | SERVICES, CORE | PARK [...] [facility] | [address] | [place] [address] | | | SERVICES, CORE | PARK [...] [facility] | [address] | [place] [address] | | | SERVICES, CORE | PARK [...] [facility] | [address] | [place] [address] | | | SERVICES, CORE | PARK [...] | + + + + + | [facility] | [address] | [place] [address] | | | LELAND ZACARIAS | ELEANOR [...] view image for the detailed interpretation from [facility] results. | CARDIOLOGY | + + + + + | Procedure Note | + + | Interface, Cardiology Results - 03/01/2013 6:18 PM PDT Please click on view image | | for the detailed interpretation from [facility] results. | + + + + + + + | Performing | Address | City/State/Zipcode | Phone Number | | Organization | | | | + + + + + | [facility] | [address] | [place], [place] | | | CARDIOLOGY | [address] | [address] | | + + + + + [...] | + + + + + | [facility] | [address] | [place] [address] | | | SERVICES, CORE | PARK [...] | 6,314 (H) | <125 pg/mL | [facility] | | | | | | LABORATORY [...] | + + + + + | [facility] | [address] | [place] [address] | | | SERVICES, CORE | ELEANOR [...] | + + + + + | [facility] | [address] | [place] [address] | | | LELAND ZACARIAS | ELEANOR [...] | + + + + + | [facility] | [address] | [place] [address] | | | LELAND ZACARIAS | ELEANOR [...] | + + + + + | [facility] | [address] [facility] | [place] [address] | | | SERVICES, CORE | PARK [...] | | | LABORATORY | | | ALBANIAN | | | SERVICES, | | | [...] | + + + + + | [facility] | [address] | [place] [address] | | | SERVICES, CORE | PARK [...] | 10.70 (H) | <0.80 ng/mL | [facility] | | | | | | LABORATORY [...] | + + + + + | [facility] | [address] [facility] | [place] [address] | | | SERVICES, CORE | PARK [...] | + + + + + | [facility] | [address] | [place] [address] | | | LELAND ZACARIAS | ELEANOR [...] | + + + + + | [facility] | [address] | [place] [address] | | | SERVICES, CORE | ELEANOR [...] [facility] | [address] | [place] [address] | | | LELAND ZACARIAS | ELEANOR [...] ranges for some CBC/Differential analytes in | [facility], CORE | | effect on 01/04/13. | | + + + + + + + + | Performing | Address | City/State/Zipcode | Phone Number | | Organization | | | | + + + + + | [facility] | [address] | [place] [address] | | | RELL, LELAND | ELEANOR [...] | + + + + + | [facility] | [address] | [place] [address] | | | LELAND ZACARIAS | ELEANOR [...] | + + + + + | [facility] - | [address] | [place] [address] | | | [place] | | | | + + + [...] | + + + + + | [facility] | [address] | [place] [address] | | | LELAND ZACARIAS | ELEANOR [...] | + + + + + | [facility] | [address] | [place] [address] | | | SERVICES, CORE | [address] | | | + + + + + MAGNESIUM, PLASMA (02/27/2013 4:44 PM PDT) + +---------+ + + + | Component | Value | Ref Range | Performed | Pathologist | | | | | At | Signature | + +---------+ + + + | MAGNESIUM,P | 1.5 (L) | 1.8 - 2.5 mg/dL | [facility] | | | LASMA | | | [...] | + + + + + | [facility] | [address] [facility] | [place] [address] | | | SERVICES, CORE | PARK [...] | | | LABORATORY | | | ALBANIAN | | | SERVICES, | | | [...] | + + + + + | [facility] | [address] | [place] [address] | | | SERVICES, LELAND | ELEANOR [...] VELAZQUEZ | | | | | | (3504) on 03/01/2013 | | | | | | 6:14:29 PM | | | | + + + + + + + + | Specimen | + + | | + + + + + | Narrative | Performed At | + + + | Please click | [facility] | | on view image for the detailed interpretation from [employer] results. | CARDIOLOGY | + + + + + | Procedure Note | + + | Interface, Cardiology Results - 03/01/2013 6:14 PM PDT Please click on view image | | for the detailed interpretation from [employer] [facility] results. | + + + + + + + | Performing | Address | City/State/Zipcode | Phone Number | | Organization | | | | + + + + + | [facility] | [address] | [place], [place] | | | CARDIOLOGY | [address] | [address] | | + + + + + [...] | | | | | dose on [facility] 02/28/13 at 0900, | | | [...] | | | | | | | [facility] 02/28/13 at 2100, Until Fri | [...] | | | | First dose on [facility] 02/28/13 at | | | | [...] | | | | | | Until [facility] 02/28/13 at 2049 | | | [...] | | | | | NEEDED, Starting [facility] 02/28/13 | | PM PDT | [...] | | | oral, ONCE, 1 dose, [facility] 02/28/13 | | AM PDT | [...] | | | | | dose on [facility] 02/28/13 at 1430, | | | [...] | | | | ONCE, 1 dose, [facility] 02/28/13 at 0300 | | AM [...]
--- OUTSIDE RECORDS SUMMARY | ~2018-11-14 | XMS | Clinical Summary ---
Demographics + + + | Address | [address] | | | [place] [address] | + + + | Home Phone | | + + + | Preferred Language | Unknown | + + + | Marital Status | Single | + + + | Buddhist Affiliation | Unknown | + + + | Race | Unknown | + + + | Ethnic Group | Unknown | + + + Author + + + | Author | [employer] | + + + | Organization | [facility] [employer] | + + + | Address [...] Team Providers + +------+ + | Care Certified Travel Counselor Name | Role | Phone | + [...] LVEF 30-35%. | | Last Echo, 11/11/2015 ([facility]'s): LVEDd 69mm, large area of | | [...] (2.5*33mm Xience KASIA).Hx | | Pacemaker/ICD: ICD, [facility] [id number], SN: [id number].Last Cath, | | 03/01/2013: OLSON to LAD [...] rhythm, 76bpm, occ PAC, LAE, old theresa-septal MD, diffuse | | non-spec ST-T changes, low [...] Plan: | | ICD implanted 10/2011, SJM [id number], SN: [id number]. Followed by | | [facility]. Patient denies shocks.Last interrogation, | | 08/24/2015: device stable, no VT/VF, no A fib/flutter. | | Last Assessment & Plan: ICD implanted 10/2011, SJM [id number], SN: [id number]. Followed by [facility]. Patient denies shocks. | |Last interrogation, [...] | | | | | graft of [place] | | | | | | heart [...] +------+-------+ + | MEDICARE | MEDICA | [id number] | | | [address] | | | RE | | | | [place] [address] | | | IP-OP | | | | | + +--------+ +------+-------+ + | COMMERCIAL OTHER | BANKER | [id number] | | | | | | S [...] | | | claudia | | | [address]15 | [address] | + +--------+ +--------+ + +
[~2018-11-14 11:21] MED LIST: AVAPRO75 MG; B-12500 MCG PO; CARVEDILOL3.125 MG PO; DIALYVITE V5000 UNIT PO; IRON325 MG PO; LASIX20 MG PO; LEVOTHYROXINE50 MCG PO; MICARDIS20 MG PO; MICRO-K10 MEQ PO; SIMVASTATIN20 MG PO; SPIRIVA18 MCG IH; SPIRONOLACTONE50 MG; TRAZODONE HCL50 MG PO
[2018-11-14] MEDS ORDERED: ASPIR-LOW81 MG PO (11:36)
[2018-11-14] MEDS ORDERED: DEMADEX10 MG PO (11:36)
[2018-11-14] MEDS ORDERED: LOSARTAN POTASS25 MG PO (11:37)
[2018-11-14] MEDS ORDERED: ZOLOFT100 MG PO (11:37)
[2018-11-14] MEDS ORDERED: TORSEMIDE5 MG PO (14:22)
--- NOTE | 2018-11-14 16:19 | EKG ---
[facility] [address] [facility] [place] [address] Signed Normal sinus rhythm Septal infarct (cited on or before 28-MAY-2016) Possible Lateral infarct (cited on or before 28-MAY-2016) Abnormal ECG When compared with ECG of 28-MAY-2016 08:27, premature supraventricular complexes are no longer present Questionable change in initial forces of Lateral leads Confirmed by MAYR OLMOS MD ([id number]) on 11/14/2018 4:19:06 PM Electronically Signed By: MARY OLMOS MD 11/14/18 1619 PATIENT NAME: MILEY MORTON Electrocardiogram DATE OF : 45 PHYSICIAN: MARY OLMOS MD REPORT #: [id number] REPORT IS CONFIDENTIAL AND NOT TO BE RELEASED WITHOUT AUTHORIZATION
== END 2018-11-14 15:20 | disposition home or self-care (01) ==
LOC: ED 11:21
DX: I50.9 Heart failure, unspecified (principal); J44.9 Chronic obstructive pulmonary disease, unspecified; I25.2 Old myocardial infarction; Z79.899 Other long term (current) drug therapy; Z79.82 Long term (current) use of aspirin
CPT/HCPCS: 71045; 80053; 81001; 83880; 84484; 85025; 85610; 93005; 93010; 96374; 96376; 99285-25; J1940

== ENCOUNTER 2020-09-30 14:43 | Emergency (ER) | payer MEDICARE, OTHER ==
[~2020-09-30] VITALS: Ht 162.6 cm; Wt 165.0 kg
[~2020-09-30 14:43] MED LIST changes: +ASPIR-LOW81 MG PO; +DEMADEX10 MG PO; +LOSARTAN POTASS25 MG PO; +TORSEMIDE5 MG PO; +ZOLOFT100 MG PO
--- NOTE | 2020-10-02 13:13 | EKG ---
[facility] [address] [facility] [place] [address] Signed Sinus tachycardia Possible Left atrial enlargement Low voltage QRS Possible Anterolateral infarct (cited on or before 28-MAY-2016) Abnormal ECG When compared with ECG of 14-NOV-2018 11:41, Vent. rate has increased BY 36 BPM Questionable change in initial forces of Lateral leads Confirmed by PAVAN YEPEZ DO ([id number]) on 10/02/2020 1:13:01 PM Electronically Signed By: PAVAN YEPEZ DO 10/02/20 1313 PATIENT NAME: MILEY MORTON Electrocardiogram DATE OF : 45 PHYSICIAN: PAVAN YEPEZ DO REPORT #: [id number] REPORT IS CONFIDENTIAL AND NOT TO BE RELEASED WITHOUT AUTHORIZATION
== END 2020-09-30 18:48 | disposition home or self-care (01) ==
LOC: ED 14:43
DX: R06.02 Shortness of breath (principal); I50.9 Heart failure, unspecified; J44.9 Chronic obstructive pulmonary disease, unspecified; I25.2 Old myocardial infarction; Z79.899 Other long term (current) drug therapy; Z79.82 Long term (current) use of aspirin
CPT/HCPCS: 71045; 80053; 82550; 82553; 82803; 83735; 83874; 83880; 84484; 85025; 93005; 93010; 96374; 99285-25; J2060

== ENCOUNTER 2021-02-26 02:04 | Emergency (ER) | payer MEDICARE, OTHER ==
[~2021-02-26] VITALS: Ht 162.6 cm; Wt 73.9 kg
[2021-02-26] MEDS ORDERED: VALACYCLOVIR1000 MG PO (05:49)
[2021-02-26] MEDS ORDERED: PERCOCET 5-3251 EACH PO (05:49)
[2021-02-26] MEDS ORDERED: GABAPENTIN100 MG PO (05:49)
--- NOTE | 2021-02-26 14:56 | EKG ---
[facility] [address] [facility] [place] [address] Signed Atrial flutter with 2:1 AV conduction Nonspecific intraventricular block Cannot rule out Septal infarct (cited on or before 28-MAY-2016) Abnormal ECG When compared with ECG of 30-SEP-2020 15:02, Atrial flutter has replaced Sinus rhythm QRS duration has increased Questionable change in initial forces of Anterolateral leads Nonspecific T wave abnormality now evident in Inferior leads Inverted T waves have replaced nonspecific T wave abnormality in Lateral leads Confirmed by PAVAN YEPEZ DO ([id number]) on 02/26/2021 2:56:31 PM Electronically Signed By: PAVAN YEPEZ DO 02/26/21 1456 PATIENT NAME: MILEY MORTON Electrocardiogram DATE OF : 45 PHYSICIAN: PAVAN YEPEZ DO REPORT #: [id number] REPORT IS CONFIDENTIAL AND NOT TO BE RELEASED WITHOUT AUTHORIZATION
== END 2021-02-26 06:18 | disposition home or self-care (01) ==
LOC: ED 02:04
DX: B02.9 Zoster without complications (principal); I25.2 Old myocardial infarction; J44.9 Chronic obstructive pulmonary disease, unspecified; I50.9 Heart failure, unspecified; Z79.899 Other long term (current) drug therapy; Z79.82 Long term (current) use of aspirin
CPT/HCPCS: 71045; 80053; 83735; 84484; 85025; 93005; 93010; 96374; 99284-25; J3010

== ENCOUNTER 2021-03-01 18:03 | Emergency (ER) | payer MEDICARE, OTHER ==
[~2021-03-01] VITALS: Ht 162.6 cm; Wt 73.9 kg
[~2021-03-01 18:03] MED LIST changes: +GABAPENTIN100 MG PO; +PERCOCET 5-3251 EACH PO; +VALACYCLOVIR1000 MG PO
--- OUTSIDE RECORDS SUMMARY | 2021-03-01 18:06 | XMS ---
PreManage Notification: MILEY MORTON Security Corrections Counselor Events No recent Security Events currently on file CRITERIA MET - [facility] - 2 Visits in 30 Days - [facility] CARE PROVIDERS TERESITA OROPEZA Nurse Practitioner: [facility] PHONE: [phone] Mynor has no Care Guidelines for this patient. Michel VISIT COUNT (12 MO.) 3 [facility] TOTAL 3 NOTE: Visits indicate total known visits. ED/C VISIT TRACKING (12 MO.) 03/01/2021 18:04 [facility] TYPE: Emergency COMPLAINT: - SOB 02/26/2021 02:04 [facility] TYPE: Emergency COMPLAINT: - DIFFICULTY BREATHING 09/30/2020 14:44 [facility] TYPE: Emergency COMPLAINT: - SOB DIAGNOSES: - Heart failure, unspecified - Chronic obstructive pulmonary disease, unspecified - Old myocardial infarction - [facility] (current) use of aspirin - Shortness of breath - Other stage producer (current) drug therapy INPATIENT VISIT TRACKING (12 MO.) No inpatient visits to display in this time frame [email or web address]
[2021-03-01] MEDS ORDERED: ELIQUIS5 MG PO (18:25)
--- NOTE | 2021-03-02 22:13 | EKG ---
[facility] [address] [place] [address] Signed Atrial flutter with variable AV block Low voltage QRS Possible Anterolateral infarct (cited on or before 28-MAY-2016) Abnormal ECG When compared with ECG of 26-FEB-2021 02:11, QRS duration has decreased Questionable change in initial forces of Anterolateral leads ST now depressed in Anterior leads Confirmed by MARY OLMOS MD ([id number]) on 03/02/2021 10:09:00 PM Electronically Signed By: MARY OLMOS MD 03/02/21 2213 PATIENT NAME: MILEY MORTON Electrocardiogram DATE OF : 45 PHYSICIAN: MARY OLMOS MD REPORT #: [id number] REPORT IS CONFIDENTIAL AND NOT TO BE RELEASED WITHOUT AUTHORIZATION
== END 2021-03-01 21:36 | disposition home or self-care (01) ==
LOC: ED 18:03
DX: I50.9 Heart failure, unspecified (principal); I25.2 Old myocardial infarction; J44.9 Chronic obstructive pulmonary disease, unspecified; Z79.899 Other long term (current) drug therapy; Z79.01 Long term (current) use of anticoagulants; Z91.14 Patient's other noncompliance with medication regimen
CPT/HCPCS: 71045; 80053; 81001; 83880; 84484; 85025; 93005; 93010; 96374; 99285-25; J1940

== ENCOUNTER 2021-03-25 13:14 | Inpatient (IN) | payer MEDICARE, OTHER ==
[~2021-03-25] VITALS: Ht 162.6 cm; Wt 77.6 kg
[~2021-03-25 13:14] MED LIST changes: -DIALYVITE V5000 UNIT PO; +DIALYVITE VIT125 MCG PO; +ELIQUIS5 MG PO
--- OUTSIDE RECORDS SUMMARY | 2021-03-25 13:16 | XMS ---
PreManage Notification: MILEY MORTON Security Director Of Sleep Events No recent Security Events currently on file CRITERIA MET - [facility] - 2 Visits in 30 Days - [facility] CARE PROVIDERS TERESITA OROPEZA Nurse Practitioner: [facility] PHONE: [phone] [facility] 03/02/2021-[facility] PHONE: [phone] Mynor has no Care Guidelines for this patient. Care History Medical/Surgical 03/02/2021 [facility] - PATIENT IS JULITAMIGNON ELIGIBLE, \T\middot;\T\nbsp; P[facility] REFER [facility] NON EMERGENT MEDICAL NEEDS. \T\middot;\T\nbsp; [facility] CAN SEE PATIENTS SAME DAY FOR APTS IF PATIENT CALLS FIRST THING IN THE MORNING. E.D. VISIT COUNT (12 MO.) 4 [facility] TOTAL 4 NOTE: Visits indicate total known visits. ED/UCC VISIT TRACKING (12 MO.) 03/25/2021 13:14 [facility] TYPE: Emergency COMPLAINT: - WEAKNESS 03/01/2021 18:04 [facility] TYPE: Emergency COMPLAINT: - SOB DIAGNOSES: - Heart failure, unspecified - shelter (current) use of anticoagulants - Old myocardial infarction - Other [facility] (current) drug therapy - Shortness of breath - Chronic obstructive pulmonary disease, unspecified - Patient's other noncompliance with medication regimen 02/26/2021 02:04 [facility] TYPE: Emergency COMPLAINT: - DIFFICULTY BREATHING DIAGNOSES: - Heart failure, unspecified - Old myocardial infarction - shelter (current) use of aspirin - Zoster without complications - Shortness of breath - Chronic obstructive pulmonary disease, unspecified - Other [facility] (current) drug therapy 09/30/2020 14:44 [facility] TYPE: Emergency COMPLAINT: - SOB DIAGNOSES: - Heart failure, unspecified - Chronic obstructive pulmonary disease, unspecified - Old myocardial infarction - shelter (current) use of aspirin - Shortness of breath - Other [facility] (current) drug therapy INPATIENT VISIT TRACKING (12 MO.) No inpatient visits to display in this time frame [email or web address]
--- NOTE | 2021-03-25 20:42 | NUR ---
1950 PATIENT ARRIVED VIA STRTECHER. PATIENT IS DROWSY BUT WAKES EASILY. ORIENTED TO SELF AND SURROUNDINGS. UNSURE OF DATE. VS STABLE. AFIB WITH RATE IN 90'S. TOLERATING ROOM AIR. BP ADEQUATE. IV FLUIDS STARTED PER ORDER. DISCUSSED PLAN OF CARE, PATIENT IS AGREEABLE BUT NOT TALKATIVE. SKIN IS GROSSLY INTACT, SOME BRUSING/DISCOLORATION IN THE CHRISTIANO LOWER EXTREMITITES. 1+ EDEMA AND TENDER, CHRONIC ACCORDING TO THE PATIENT. PATIENT DENIES NEED TO VOID. NO NEEDS AT THIS TIME. DEMONSTRATES ABILITY TO USE CALL LIGHT. BED ALARM ACTIVE.
--- NOTE | 2021-03-25 23:18 | NUR ---
ADAMS PLACED. PATIENT IS VERY SENSTIVE AND REPORTED PAIN WITH INSERTION. 20 MLS OF HANANE COLORED URINE RECIEVED. PATIENT REQUEST A SIP OF WATER TO GET HER MOUTH WET WHICH WAS PROVIDED. PATIENT THEN FELT NAUSEOUS BUT DID NOT HAVE ANY EMESIS. ABLE TO SETTLED BACK INTO RESTING COMOFRTABLY AFTER A FEW MINS. IV FLUIDS PER ORDER, SITE WNL. PATIENT VS STABLE.
--- NOTE | 2021-03-26 00:11 | NUR ---
DISCUSSED PATIENT'S LOW URINE OUTPUT WITH MD. 250 ML FLUID BOLUS ORDERED AND INCREASE IN IV FLUIDS. SEE EMAR.
--- NOTE | 2021-03-26 02:24 | NUR ---
patient boosted up in bed. sip of water provided. flowers drained for 25 mls domingo colored urine. flowers assessed for obstruction, none found. iv fluids were increased per order after 250 ml bolus infused. no increase in urine output noted.
--- NOTE | 2021-03-26 04:45 | NUR ---
PATIENT RESTING WITH EYES CLOSED. OPENS WHEN STAFF ENTERS THE ROOM. PATIENT DENIES PAIN OR NAUSEA. TOLERATING SIPS OF WATER. IV FLLUIDS PER ORDER, SITE WNL. ADAMS FLUSHED TO ASSESS THAT IT IS FREELY DRAINING. POOR URINE OUTPUT NOTED. VS STABLE.
--- NOTE | 2021-03-26 04:56 | NUR ---
DISCUSSED PATIENT'S LOW URINE OUTPUT WITH MD. INCREASED FLUIDS TO 125 ML/HR
--- NOTE | 2021-03-26 06:16 | NUR ---
MORNING LABS DRAWN. ASSISTED PATIENT TO REPOSITION. IV FLUIDS INCREASED PER ORDER, SITE WNL. VS STABLE.
--- NOTE | 2021-03-26 07:30 | NUR ---
RECEIVED REPORT AT 0700. PT IN ROOM RESTING. NO NEW CONCERNS NOTED AT THAT TIME.
--- NOTE | 2021-03-26 09:00 | NUR ---
BP'S SOFT. UPPER LOBES CLEAR ALL OTHERS DIMINSHED. PT DENIES ANY PAIN, ABD SOFT TO TOUCH WITH ACTIVE BOWEL TONES. ADAMS OUTPUT VERY MINIMAL AND HANANE IN COLOR. PT HAS BILATERAL LOWER LEG/FOOT EDEMA WELL BILATERAL HAND EDEMA. WILL CONTINUE TO MONITOR.
--- NOTE | 2021-03-26 10:52 | NUR ---
PALLET REPAIRER IN ROOM. NO NEW CONCERNS NOTED AT THIS TIME.
--- NOTE | 2021-03-26 11:33 | NUR ---
PT AWAKE, SEEMS WEAK AND APPEARED TO HAVE DIFFICULTY SPEAKING. PT WAS PLEASANT, TRIED MUCH POSSIBLE TO ENGAGE IN CONVERSATION. LEFT A G.POST AND HAD PRAYER WITH PT. WILL FOLLOW
--- NOTE | 2021-03-26 12:00 | NUR ---
UPPER LOBES CLEAR, LOWER LOBES DIMINISHED. PT DENIES SOB. ABD SOUNDS PRESENT, PT DENIES ANY PAIN. URINE OUTPUT FOR THE PAST 2 HRS HAS ESSENTIALLY BEEN 0MLS. WILL CONTINUE TO MONITOR. PERIPH. EDEMA UNCHANGED.
--- NOTE | 2021-03-26 12:35 | NUR ---
SPOKE WITH PATIENT IN ROOM. PATIENT ABLE TO ANSWER QUESTIONS ALTHOUGH IS VERY WEAK APPEARING. PATIENT LIVES ALONE. IS RETIRED. USES [facility] FOR PCP AND MEDS. DENIES USING DME. DENIES FINANCIAL WORRY OF MEDS/FOOD/UTILITIES. PLANS TO DISCHARGE HOME. STATES SHE HAS SOME FRIENDS AND FAMILY TO HELP IF NEEDED. AGREED WE NEED TO SEE HOW SHE IS CLOSER TO DISCHARGE BEFORE WE CAN KNOW WHAT SHE MAY NEED. SHE DENIES QUESTIONS. CLEARLY IS NOT FEELING WELL.
--- NOTE | 2021-03-26 13:29 | NUR ---
Pt's albumin infusion has completed, restarted lactated ringers at 125ml/hr per order. pt is resting, is alert and conversant, aanswering questions appropriately. Denies needs at this time. Call light with pt.
--- NOTE | 2021-03-26 13:36 | NUR ---
ADAMS EMPTIED. 20ML OUTPUT. VITALS CHARTED
--- NOTE | 2021-03-26 13:57 | NUR ---
PT IN ROOM RESTING. NO NEW CONCERNS NOTED AT THIS TIME.
--- NOTE | 2021-03-26 15:08 | CONS ---
[facility] [address] [place], [place] [address] Signed DATE OF CONSULTATION: 03/25/2021 CONSULTING PHYSICIAN: Anna Orellana MD. REQUESTING PHYSICIAN: Dr. Murphy. PROBLEM: Hydropic gallbladder with tenderness underlying poor cardiac function. HISTORY OF PRESENT ILLNESS: This 75-year-old white woman presented to the emergency room this evening and evaluated by Dr. Hidalgo initially and subsequently Dr. Murphy. She is brought to EMS for weakness and confusion and said she had been vomiting. The patient had been not feeling well and having weakness for several days. She had no lateralizing signs or anything to suggest cerebrovascular accident. Evaluation includes a gallbladder ultrasound as well as a CT scan as she was thought to have some tenderness on examination. No tenderness was noted by the emergency room physician, specifically however Dr. Murphy did confirm such tenderness on his exam. The patient has been living on her own, but failing overall and refusing placement at an extended care facility. The patient is noted to have history of 4-vessel bypass and has an AICD pacemaker in place. In 2017, upon review of notes that I have seen, she was noted to have an ejection fraction of only 20% to 25%. Notes from Dr. Amador, automobile locator on November 16, 2016, showed left ventricle severely dilated with normal wall thickness. Ejection fraction of 20% to 25%, grade 2 diastolic dysfunction and severe global hypokinesis with akinetic anterior, anteroseptal, and inferoseptal mildly aneurysmal segments. I am uncertain if there has been a study done since that time. Left ventricle is consider "severely enlarged." Imaging studies in the emergency room include a gallbladder ultrasound, which showed a distended gallbladder and a CT scan, which showed a hydropic gallbladder as well. The liver was considered somewhat enlarged with an irregular contour, but no evidence of ascites was seen. There was a 1.4 cm calculus within the gallbladder with sludge, gallbladder distention, but without wall thickening and no sonographic Alex sign. Gallbladder wall is 2.4 mm in thickness. There is no sign of intrahepatic ductal dilatation. Good patency of the portal vein was noted. PAST MEDICAL HISTORY: Does include progressive heart failure as previously described, history of 4-vessel bypass and said also to have a gastric bypass, the patient denies such an operation. 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 REVIEW OF SYSTEMS: Electronically Signed By: ANNA ORELLANA MD 03/26/21 1508 PATIENT NAME: MILEY MORTON CONSULTATION DATE OF : 45 REPORT #: [id number] PHYSICIAN: ANNA ORELLANA MD PCP: [facility] REPORT IS CONFIDENTIAL AND NOT TO BE RELEASED WITHOUT AUTHORIZATION [facility] [address] [place], [place] [address] Signed She denies any chest pain or shortness of breath and does not have severe abdominal pain particularly. She denies any hematemesis or blood per rectum. PHYSICAL EXAMINATION: GENERAL: A debilitated white woman who looks to be relatively comfortable at this time presentation. VITAL SIGNS: Pulse was 96, respirations 20, blood pressure 95/46, pulse oximetry 96% saturation. HEENT: Trachea is midline. Chest is without signs of tachypnea. Breath sounds are distant, but present bilaterally. HEART: Regular on clinical examination. ABDOMEN: Broad and obese. Palpation is generally without abnormality other than some tenderness in the epigastric and minimally in the subcostal area. Given abdominal wall obesity, I detect no mass. EXTREMITIES: Mild edema. IMAGING DATA: CT scan ultrasound images were reviewed in detail. Findings were noted as above. ASSESSMENT: The patient's gallbladder is quite markedly distended and she presents with vague symptoms and signs suggestive of low-grade infection. LABORATORY STUDIES: Show a white count of only 7.0, hematocrit of 50.6, and platelets of 163,000. Urinalysis showed 30 mg/dL of protein, 2-3 urine white cells per high-power field. A tox screen is normal and the serology test is negative for COVID by PCR. I think a reasonable working diagnosis at this time is acute possibly calculus cholecystitis with hydropic gallbladder, likely corresponding to the imaging studies and her clinical presentation. Concern is maintained by all about her ability to tolerate a general anesthetic for cholecystectomy, which would generally be the treatment of choice. There is concern on the patient's part regarding her ability to tolerate operation as well. Short of consideration for cholecystectomy on the immediate time frame would recommend intravenous antibiotics, IV fluid support and allowance of clear liquids of the patient desires (as she does currently). It may be advisable to obtain a BNP as a baseline and additionally would consider following her CBC and liver enzymes going forward. An alternative to non operative management by IV antibiotics and medical support, but not as aggressive as actual cholecystectomy is and occasional indication for cholecystostomy with decompression of the biliary tree and if possible extraction of stone. Although such procedures can be done under local anesthesia for sedation with local, in general terms a general anesthetic and expedient operation are more easily accomplished generally speaking. Such an approach can be a reasonable temporizing and sometimes definitive approach. I have discussed this with Dr. Murphy and to a lesser extent, Electronically Signed By: ANNA ORELLANA MD 03/26/21 2381 PATIENT NAME: MILEY MORTON CONSULTATION DATE OF : 45 REPORT #: [id number] PHYSICIAN: ANNA ORELLANA MD PCP: [facility] REPORT IS CONFIDENTIAL AND NOT TO BE RELEASED WITHOUT AUTHORIZATION [address] [place], [place] [address] Signed Alfonso, emergency room physician. Dr. Murphy is anticipating admission to the hospital with further treatment as we have discussed. MD KARLENE Bess/MALACHI /[id number] cc: Dr. Murphy Copies: ~ Electronically Signed By: ANNA ORELLANA MD 03/26/21 1508 PATIENT NAME: MILEY MORTON CONSULTATION DATE OF : 45 REPORT #: [id number] PHYSICIAN: ANNA ORELLANA MD PCP: [facility] REPORT IS CONFIDENTIAL AND NOT TO BE RELEASED WITHOUT AUTHORIZATION
[2021-03-26] MEDS ORDERED: ZOFRAN4 MG PO (15:56)
[2021-03-26] MEDS ORDERED: PROTONIX20 MG PO (15:57)
[2021-03-26] MEDS ORDERED: COREG6.25 MG PO (16:00)
--- NOTE | 2021-03-26 16:47 | NUR ---
PT NOW HAS SOME CRACKLES PRESENT IN THE BASES. EDEMA IN BILATERAL ARMS AND LEGS HAS INCREASED ALSO. PT DENIES PAIN AND SOB. ABD SOUNDS ARE PRESENT. PT HOWEVER DOES NOT REMEMBER WHEN HER LAST BM WAS.
--- NOTE | 2021-03-26 19:30 | NUR ---
SHIFT REPORT RECEIVED. PATIENT CALLED FOR ASSISTANCE. NEW GOWN PROVIDED DUE TO PATIENT SPILLING HER DRINK. PATIENT DENIES ANY CONCERNS OR FURTHER NEEDS. IV SITE IN LEFT HAND HAS ABX AND FLUIDS INFUSING, WNL.
--- NOTE | 2021-03-26 21:00 | NUR ---
DISCUSSED PATIENT'S CURRENT FLUID STATUS WITH MD. IV FLUIDS DC AND ONE TIME DOSE LASIX, SEE EMAR.
--- NOTE | 2021-03-26 21:15 | NUR ---
PATIENT PROVIDED WITH EVENING MEDS PER ORDER. PATIENT IS ALERT AND ORIENTED. DENIES PAIN OR NAUSEA. TOLERATING CLEAR LIQUIDS. PATIENT APPEARS TO HAVE MORE DEPENDENT EDEMA IN HER ARMS AND AROUND HER ABD. 2+ EDEMA IN CHRISTIANO LOWER EXTREMITITES. CRACKLES HEARD IN CHRISTIANO LOWER LOBES. PATIENT DENIED FEELING SOB. TOLERATING ROOM AIR. ADAMS IN PLACE. URINE OUTPUT IS MINIMAL. VS STABLE.
--- NOTE | 2021-03-26 21:36 | EKG ---
[facility] [address] [facility] [place] [address] Signed Atrial fibrillation with rapid ventricular response Low voltage QRS Possible Anterolateral infarct (cited on or before 28-MAY-2016) Abnormal ECG When compared with ECG of 01-MAR-2021 18:55, Atrial fibrillation has replaced Atrial flutter ST no longer depressed in Inferior leads ST no longer depressed in Anterior leads Confirmed by PAVAN YEPEZ DO ([id number]) on 03/26/2021 9:36:37 PM Electronically Signed By: PAVAN YEPEZ DO 03/26/21 2136 PATIENT NAME: MILEY MORTON Electrocardiogram DATE OF : 45 PHYSICIAN: PAVAN YEPEZ DO REPORT #: [id number] REPORT IS CONFIDENTIAL AND NOT TO BE RELEASED WITHOUT AUTHORIZATION
--- NOTE | 2021-03-27 00:11 | NUR ---
patient up to the bsc for small bm. patient tolerated transfer moderately well with heavy 1pa. patient returned to bed and iv abx started. patient reports feeling tired after this small activity. call light in reach.
--- NOTE | 2021-03-27 04:12 | NUR ---
PATIENT CALLING OUT FOR ASSISTANCE AND ATTEMPTING TO GET OUT OF BED. PATIENT REPORTS NEED TO HAVE BM. PATIENT ASSISTED TO BSC, HEAVY 1PA. PATIENT PASSING GAS AND HAD SMALL AMOUNT OF LIQUID STOOL. PATIENT RETURNED TO BED. VS STABLE. TOLERATING ROOM AIR. ADAMS EMPTIED FOR 350 MLS CLEAR YELLOW URINE. IV ABX INFUSING, SITE WNL. CALL LIGHT IN PATIENTS HAND. BED ALARM ACTIVE.
--- NOTE | 2021-03-27 07:30 | NUR ---
REPORT RECIEVED. PATIENT IS RESTING IN BED, NO DISTRESS NOTED.
--- NOTE | 2021-03-27 08:00 | NUR ---
ASSESSMENT DONE. DENEIS PAIN OR NAUSEA. TALKED WITH PATIENT ABOUT POC, INDICATES UNDERSTANDING.
--- NOTE | 2021-03-27 09:00 | NUR ---
DENIES FEELING HUNGERY. CONTINUES TO TAKE ICE CHIPS. REMAINS ON A CLEAR LIQUID DIET.
--- NOTE | 2021-03-27 10:00 | NUR ---
PHYS THERAPY HERE TO WORK WITH PATIENT.
--- NOTE | 2021-03-27 11:15 | NUR ---
In room to assist PT with getting patient off the commode and back to bed. Pt able to get off commode and transfer back to bed with 1 person assist, second person for moving equipment out of the way and cord management. Pt did require assistance with feet in getting back in supine position from setting at edge of the bed. Pt had very small (approx size of diameter of tennis ball) somewhat gelatanous in appearance, light brown stool. Pt did not get SOB with exertion of getting back into bed. Pt positioned, comfort measures given. Pt denies needs or requests at this time.
--- NOTE | 2021-03-27 12:00 | NUR ---
DENIES NAUSEA, OR PAIN. HAS BEEN TAKING CLEAR LIQUIDS, MOSTLY ICE CHIPS.
--- NOTE | 2021-03-27 16:00 | NUR ---
ASSESSMENT DONE. UP TO CHAIR WITH ASSIST. TOLERATED TRANSFER WELL. DENIES SHORTNESS OF BREATH WITH EXERTION. LESS CRACKLES IN LUNGS AT THIS TIME.
--- NOTE | 2021-03-27 16:33 | NUR ---
MED REC COMPLETE
--- NOTE | 2021-03-27 17:15 | NUR ---
SITTING UP IN CHAIR FOR DINNER.
--- NOTE | 2021-03-27 17:30 | NUR ---
TO COMMODE TO PASS FLATUS THEN TRANSFERRED BACK TO BED TO FINISH DINNER.
--- NOTE | 2021-03-27 18:00 | NUR ---
TOOK SOUP AND ICE CREAM FOR DINNER.
--- NOTE | 2021-03-27 19:08 | NUR ---
BACK TO BED FROM COMMODE AFTER EXPELLING LIQ BROWN STOOL.
--- NOTE | 2021-03-27 20:00 | NUR ---
PATIENT INCONTINENT OF SMALL AMOUNT OF BM. ASSISTED TO CHANGE JOAO PAD AND RUIZ CARE DONE. PATIENT DENIED NEED TO HAVE MORE BM. ADAMS CARE DONE. PATIENT IS ALERT AND ORIENTED. TOLERATING ROOM AIR. LUNG SOUNDS ARE CLEAR IN UPPER LOBES, FINE CRACKLES IN THE BASES. PATIENT DENIED PAIN OR GI UPSET. VS STABLE. PATIENT DENIED FURTHER NEEDS. CALL LIGHT IN REACH.
--- NOTE | 2021-03-27 22:23 | NUR ---
IN ROOM TO ANSWER CALL LIGHT PT REPORTS SHE "WENT TO THE BATHROOM AGAIN" ASKED PATIENTIF SHE HAD A BM SHE STATES YES, PT HAS A ADAMS. CHECKED PATIENT HAD HER ROLL TO SIDE, NO BM NOTED, AREA CLEAN AND DRY. APPLIED FRESH WARM BLANKETS PER REQUEST.
--- NOTE | 2021-03-27 23:20 | NUR ---
PATIENT PROVIDED WITH ICE CHIPS PER REQUEST. PATIENT VS STABLE. ALERT AND ORIENTED. ADAMS DRAINING CLEAR YELLOW URINE. NO OTHER NEEDS AT THIS TIME. CALL LIGHT IN REACH.
--- NOTE | 2021-03-28 00:55 | NUR ---
PATIENT ASSISTED TO TURN TO HER RIGHT SIDE. DENIES ANY PAIN OR CONCERNS. VS STABLE.
--- NOTE | 2021-03-28 02:12 | NUR ---
pt CALLING OUT. REPORTED FEELING A FULL BLADDER, CATHETER REPOSITIONED TO DRAIN WELL. PROVIDED ICE. NO FURTHER REQUESTS AT THIS TIME CALL LIGHT WITHIN REACH.
--- NOTE | 2021-03-28 02:45 | NUR ---
PATIENT CALLED FOR ASSISTANCE TO THE BATHROOM. PATIENT UP TO BSC WITH 1PA WITH FWW. PATIENT TOLERATED WELL. PATIENT HAD MEDIUM LOOSE STOOL. ASSISTED BACK INTO BED. FRESH ICE PROVIDED. CALL LIGHT IN REACH.
--- NOTE | 2021-03-28 03:00 | NUR ---
PATIENT CALLED FOR ASSISTANCE. PATIENT APPERAS MILDLY CONFUSED. HAD FORGETTEN ABOUT GETTING UP TO THE BATHROOM. REORIENTED PATIENT. PROVIDED WARM BLANKET. ENCOURAGED SLEEP.
--- NOTE | 2021-03-28 05:45 | NUR ---
PATIENT CALLING FOR ASSISTANCE. PATIENT FORGOT WHAT SHE NEEDED. ASSISTED TO SIT UP IN BED. ICE CHIPS PROVIDED. ADAMS EMPTIED. WARM BLANKET PROVIDED. CALL LIGHT IN REACH.
--- NOTE | 2021-03-28 06:45 | NUR ---
PATIENT UP TO BSC. HAD A MEDIUM LOOSE STOOL. SEMI-FORMED, BORWN. PATIENT IS WEAK BUT ABLE TO TRANSFER WITH FWW AND 1PA. PATIENT RETURNED TO BED. ICE CHIPS PROVIDED.
--- NOTE | 2021-03-28 08:15 | NUR ---
OOB TO COMMODE WITH ASSIST TO EXPELL MED LIQUID STOOL, THEN TRANSFERRED TO CHAIR FOR BREAKFAST. PATIENT HAS VERY POOR APPETITE. ATTEMPTING TO EAT JELLO AND PUDDING.
--- NOTE | 2021-03-28 09:00 | NUR ---
ROUTINE MEDICATIONS GIVEN, UNABLE TO TAKE PO KCL AT THIS TIME IS NAUSEATED, RETCHING. PATIENT REMAINS IN CHAIR. DR. MARLENI JONES TO SEE PATIENT, WHEN MD APPLIES FIRM PRESSURE TO LEFT LOWER QUAD C/O OF SEVERE PAIN.
--- NOTE | 2021-03-28 09:30 | NUR ---
ZOFRAN 4 MG IV GIVEN FOR NAUSEA.
--- NOTE | 2021-03-28 09:50 | NUR ---
REPORT TO MED-SURG, TO MED-SURG VIA CHAIR.
--- NOTE | 2021-03-28 10:30 | NUR ---
PT ARRIVES TO FLOOR FROM CCU IN CHAIR, CALL LGIHT W/ IN REACH, VSS ON RA, AND IV FLUIDS INFUSING PER PROVIDER ORDER. PT DENIES ANY NEEDS AT THIS TIME.
--- NOTE | 2021-03-28 12:00 | NUR ---
PT SITTING UP IN CHAIR W/ CALL LIGHT IN REACH. PT DENIES ANY NEEDS AT THIS TIME, LUNCH ORDER PLACED.
--- NOTE | 2021-03-28 14:00 | NUR ---
Pt called for assistance to the bathroom. 2PA to BSC. pt had a BM then assisted to bed. pt now resting in bed safely w/ call light in reach
--- NOTE | 2021-03-28 16:00 | NUR ---
pt resting in bed w/ call light in reach. iv abx hung and infusing per provider order. pt denies any pain or nausea
--- NOTE | 2021-03-28 18:00 | NUR ---
pt resting in bed safely w/ call light in reach. pt denies any pain, nausea, or needs at this time
--- NOTE | 2021-03-28 21:25 | NUR ---
FLAT AFFECT, ON ROOM AIR, LUNGS DIM AT BASES, NO C/O SOB WITH EXERTION. IV SL R FOOT AND L HAND, COOP WITH ASSESSMENT
--- NOTE | 2021-03-28 23:09 | NUR ---
PT UP TO BSC WITH 2-3 PEOPLE ASSIST, HAD SMALL AMOUNT OF BROWN LIQUID BM. BACK TO BED, SLOW, UNSTEADY GAIT. PER OTHER CHARGE NURSE IN ROOM NOTICED PT LOOKED LIKE SHE ROLLED HER EYES TO THE BACK OF HER HEAD. VIS OBTAINED, PT DID NOT LOST CONSCIOUSNESS, LASTED LESS THAN A SECOND, ALERT TO SELF AND PLACE, STATED SHE "FELT LIGHTHEADNESS MOMENTARILY BUT NOT NOW".", HELPED REPOSITIONED IN BED. HOB ELEVATED TO COMFORT, NO OTHER SIMPTOMS NOTED OR STATED, F/C PATENT. FRESH ICE CHIPS ON REQUEST
--- NOTE | 2021-03-29 01:46 | NUR ---
RESTING, ON ROOM AIR, NO DISTRESS, IV ABX INFUSING, FLUIDS AND CALL LIGHT AT BEDSIDE
--- NOTE | 2021-03-29 05:29 | NUR ---
pt has slept well this shift. hob elevated to comofrt, turns and repositions in bed. On room air, lungs dim at bases. no cough. Up to [facility] x2, had 2 small amount of liquid brown bm. f/c in place, draining dark yellow urine. QS, tolerating liquids and ice chips, no emesis. SL R foot and L hand patent. No c/o adverse reaction to IV abx. flat affect, cooperative. follows instructions. and uses call light. 2PA, Bed alarm on, call light and fluids at bedside. no c/o CP or SOB. Had one episode when coming [place] [facility] [place] she felt lighheated for a second and it went away, an RN thought that pts eyes rolled back. alert and oriented, did not lost consciousness or had any problems. In bed goes back to sleep right away
--- NOTE | 2021-03-29 07:44 | NUR ---
PT AWAKENS TO VOICE C/O BEING COLD. HEAT ADJUSTED AND WARM BLANKET PROVIDED. FRESH ICE TO BESIDE PER REQUEST. NO OTHER IMMEDIATE NEEDS. CALL LIGHT IN REACH.
--- NOTE | 2021-03-29 08:30 | NUR ---
UPDATED WHITE BOARD. TOOK BREAKFAST ORDER. PT REFUSED CHAIR.
--- NOTE | 2021-03-29 10:44 | NUR ---
PT REPORTED NAUSEA A LITTLE EARLIER. MEDICATED WITH ZOFRAN. NO EMESIS. PT CONTINUES TO FEEL "A LITTLE STOMACHE UPSET" REFUSES MORNING MEAL, OFFER OF CRACKERS OR OTHER. DAUGHTER IS AT BEDSIDE. STATES DR YEPEZ WAS IN EARLIER AND SHE WAS ABLE TO ASK QUESTIONS, DENIES NEED OF FURTHER INFORMATION. PT RESTING NOW SIPS ON OJ DENIES NEEDS
--- NOTE | 2021-03-29 10:53 | NUR ---
PT TOO NAUSEATED TO TAKE POTASSIUM AT THIS TIME. WILL ADMINISTER LATER
--- NOTE | 2021-03-29 11:25 | NUR ---
PT CONTINUES TO FEEL NAUSEATED, NO EMESIS. COMPAZINE ADMINISTERED, PT STATES SHE IS GOING TO [place] FOR AWHILE AND HOPE SHE FEELS BETTER WHEN SHE WAKES UP. DAUGHTER LEAVES STATING SHE WILL BE BACK LATER. PT RESTING EYES CLOSED CALL LIGHT AND NEEDED ITEMS IN REACH.
--- NOTE | 2021-03-29 13:46 | NUR ---
PT CONTINUES RESTING IN BED DENIES FEELING ANY BETTER. TOLERATES A COUPLE OF BITES OF JELLO AND NO MORE. WORKING ON GETTING POTASSIUM DOWN. PT HAS HAD NO EMESIS. SHE IS RESTING EYES CLOSED NO WRETCHING OR OTHER.
--- NOTE | 2021-03-29 14:15 | NUR ---
PT ASLEEP. VS DONE AND ADAMS DRAINED. TIDIED UP ROOM. CALL LIGHT WITHIN REACH. NO FURTHER NEEDS AT THIS TIME.
--- NOTE | 2021-03-29 15:59 | NUR ---
SPOKE WITH DAUGHTER INES [phone] BY PHONE. SHE IS HERE FROM [place] AND HER SISTER AMY IS HERE FROM [place]. SHE STATES THEY HAVE BEEN TAKING TURNS COMING TO STAY WITH HER FOR AWHILE SHE HAS BEEN WEAK. STATES PATIENT HAS BEEN ABLE TO GET UP AND SLOWLY GET AROUND HOME BUT SITS AND LAYS MOST OF THE TIME. SHE HAS BEEN EATING JELLO, VERY LIGHT FOODS DUE TO NAUSEA AND NO APPETITE. SHE AND HER SISTER ARE AWARE PATIENT IS NOT A CANIDATE FOR SURGERY. THEY ARE AWARE OF HER POOR HEART FUNCTION. SHE STATES PATIENT OWNS HER HOME BUT DOES NOT WANT TO LEAVE IT. THEY HAVE TRIED TO REACH SOMEONE AT [facility], BUT HAVE NOT RECEIVED A CALL BACK. SHE STATES THEY ARE NOT IN THE POSITION TO STAY PERMAMENTLY. PATIENT IS NOT ABLE TO TRAVEL DUE TO ILLNESS AND SHE DOES NOT WANT TO LEAVE HER HOME. SHE STATES THEY ARE IN THE PROCESS TO GET POA SO THEY CAN HELP HER WITH BILLS, ETC. SHE STATES HER AUNT DOES LIVE CLOSE BY, BUT SHE ALSO HAS SOME HEALTH ISSUES AND CANNOT DO FULL CARE. SHE DOES NOT THINK PATIENT HAS LIFE ALERT. WE DISCUSSED POSSIBLITY OF ASSISTED LIVING CARE IF PATIENT WOULD AGREE. THEY THINK SHE WOULD HAVE TO SELL THE HOUSE TO AFFORD THIS. WE DISCUSSED HOW TO GO FORWARD WITH A PLAN. THEY WOULD LIKE TO HAVE BOTH OF THEM AND THEIR AUNT BE ABLE TO COME UP SOMETIME TOMORROW AND HAVE A DISCUSSION OF REALITY WITH HER. SHE STATES THEY WOULD LIKE TO APPROACH HER FIRST WITH JUST THEM AND THEN IF SHE IS AGREEABLE HAVE CASE MANAGEMENT COME IN TO DISCUSS OPTIONS. SHE STATES THE VISITING RULES HAVE MADE THIS HARD. DISCUSSED THAT IF WE KNOW WHEN THEY ARE COMING WE CAN CLEAR THEM TO COME IN FOR THE FAMILY CONFERENCE. GAVE HER OUR DISCHARGE OFFICE CONTACT NUMBER, SHE WILL CALL AND LEAVE A MESSAGE OF WHAT TIME THEY CAN ARRANGE TO COME TOMORROW. QUESTIONS ANSWERED.
--- NOTE | 2021-03-29 17:05 | NUR ---
pt denies nausea requests soup for evening meal.
--- NOTE | 2021-03-29 17:59 | NUR ---
PT SITTING UPRIGHT IN BED EATING SOUP DENIES NAUSEA OR NEEDS OF OTHER FOOD ITEMS
--- NOTE | 2021-03-29 18:40 | NUR ---
PT LOOKS LANGUID AND TIRED. PT IS VERY QUIET. PT DOZING OFF. VS AND I&O'S CHARTED. ROOM TIDIED UP. RN VESTA ASSISTED THIS CLINICAL ACCOUNT SPECIALIST WITH GETTING PT TO COMMODE. PT['S LINENS WERE SOILED SO THIS CLINICAL ACCOUNT SPECIALIST CHANGED THE LINENS. CALL LIGHT WITHIN REACH. NO FURTHER NEEDS AT THIS TIME.
--- NOTE | 2021-03-29 20:14 | NUR ---
RECEIVED REPORT FROM DAY SHIFT RN. PATIENT IS RESTINGI N BED WATCHING TV. PATIENT DENIES ANY NEEDS. CALL LIGHT IN REACH.
--- NOTE | 2021-03-29 21:21 | NUR ---
PATIENT ASSESMENT COMPLETED. PATIENTS VITALS TAKEN AND RECORDED. INTAKE AND OUTPUT RECORDED. PATIENTS SCHEDULED MEDICATION GIVEN PER ORDER. PATIENT DENIES ANY NEEDS. PATIENT IS RESTING IN BED. BED ALARM ON FOR SAFETY.
--- NOTE | 2021-03-29 22:15 | NUR ---
PATIENT ASSISTED TO THE BSC A 1PA. PATIENT WAS ABLE TO VOID AND HAVE SMALL LOOSE BM. PATIENT IS BACK IN BED RESTING. CALL LIGHT IN REACH. BED ALARM ON FOR SAFETY.
--- NOTE | 2021-03-29 23:56 | NUR ---
PATIENTS BED ALARM ALERTED STAFF. PATIENT ASSISTED TO THE BSC A 1PA. PATIENT WAS ABLE TO VOID AND HAVE SAMLL LOOSE BM. PATIENT IS BACK IN BED RESTING. PATIENTS SCHEDULED MEDICATIONS GIVEN PER ORDER. PATIENT DENIES ANY PAIN OR NAUSEA. PATIENT DENIES ANY FURTHER NEEDS. CALL LIGHT IN REACH. BED ALARM ON FOR SAFETY.
--- NOTE | 2021-03-30 02:32 | NUR ---
PATIENT UP FREQUENTLY TO USE BSC. PATIENT HAS MIXED URINE AND BM. BLADDER SCANNED PATIENT, 189ML. PATIENT PROVIDED WITH WARM BLANKET. NO FURTHER NEEDS NOTED. CALL LIGHT IN REACH. BED ALARM ON FOR SAFETY.
--- NOTE | 2021-03-30 04:30 | NUR ---
BED ALARM SOUNDING, IV ALARMING. PT TRYING TO LOOK OVER AT THE IV PUMP, THUS CAUSED BED ALARM TO SOUND. ABX COMPLETE, SL. VS COMPLETE. BED ALARM PLACED. PT WITH EYES CLOSED, WHEN RN LEFT ROOM
--- NOTE | 2021-03-30 07:20 | NUR ---
PT ALERT AND INTERACTIVE AT SHIFT EXCHANGE. RESTING IN BED REFUSES UP AT THIS TIME, "MAYBE LATER" DENIES NEEDS OF.
--- NOTE | 2021-03-30 07:49 | NUR ---
PT IN AND OUT OF SLEEP. PT ACCEPTED WARM CLOTH FOR FACE. BLINDS ARE OPEN. WHITE BOARD UPDATED.
--- NOTE | 2021-03-30 08:00 | NUR ---
PT UP TO THE CHAIR SBA WITH FWW. WARM BLANKETS AND HOT TEA PROVIDED. CHAIR ALARM SET AND CALL LIGHT IN LAP.
--- NOTE | 2021-03-30 09:53 | NUR ---
PT UP IN THE CHAIR FOR MORNING MEAL. SHE EATS BITES ONLY REFUSES OFFER OF OTHER ITEMS. SAYS SHE IS A LITTLE NAUSEATED, NO WRETCHING OR EMESIS. PT MEETS WITH D/C FILTER PRESS PUMPER TO DISCUSS POSSIBLE NEEDS OF.
--- NOTE | 2021-03-30 10:30 | NUR ---
In and spoke with Jennifer, who is well know to me. She states he health has been declining and she has not gone out since covid started and stopped letting friends or family into her home. She was brought to the hospital by ambulance for her COPD. She states he EF is very low, october 28, but is unsure. We discussed plans for dc and I offered and she declined: SNF for deconditions, discharge to home with one of her daughters, cg in the home. Per 829 report, daughters and sister will visit today and attempt to discuss plan with pt as they do not feel she can take care of herself. She has not been taking her meds, showering, cleaning house, eating, etc. Pt states her daughters are here and want to take charge, she will let them if they will stay with her. I discussed this doesn't seem like a good plan as both her daughters work and will need to return home. She states she will discuss with them when they arrive.
--- NOTE | 2021-03-30 10:41 | NUR ---
pt requests to go to the chair after sitting up in the chair all morning. difficult time getting up due to low chair but stands well with a little boost. pt to bsc then bed
--- NOTE | 2021-03-30 11:11 | NUR ---
LOW URINE OUTPUT AND WHITE DISCHARGE REPORTED TO DR YEPEZ. SCARLETT HERNÁNDEZ'D
--- NOTE | 2021-03-30 12:18 | NUR ---
pt family here to meet with dc process planner and pt and discuss dc as well as plan going forward.
--- NOTE | 2021-03-30 12:45 | NUR ---
CONNECTED WITH PT'S SISTER IN [place] COMING TO VISIT. GAVE ASSISTANCE AND SOME ENCOURAGEMENT. DIRECTED TO PT'S RM. WILL CONTINUE TO FOLLOW
--- NOTE | 2021-03-30 14:00 | NUR ---
Notified by staff, daughters would like me to visit with them and Jennifer. In and spoke with family. Pt has declined to dc to daughters home. They are very concerned about pt staying alone. Sister is not in good shape and is unable to provide cg to Jennifer. Discussed with Jennifer what she is feeling and if she is ready to be done and no longer wants to seek treatment. She states, Yes. We discussed Hospice and she would be interested in this, but would require a cg. Jennifer agrees to a cg and daughters are concerned she will not be able to afford. Updated all, I will contact Rasheeda Paredes from [facility] to see if she can complete a financial eval. Daughters agree to return tomorrow as Fela is tired and having difficulty staying awake. Ill call Rasheeda today and schedule a time to call her with daughters and Jennifer in the room so they can complete eval. Pt is insisting to return home. Pt cont. to express she is tired and does not want to cont. to live. She has been unwell a long time and does not want to return to the hospital. She also states she doesn't care if she cont. her meds and had not taken in a long time. She does states she feels better when she takes medication. Will follow up tomorrow with [facility]. Called and left a message for Rasheeda Paredes. She returned my call and states she is working tomorrow and will speak with the family.
--- NOTE | 2021-03-30 15:28 | NUR ---
PT RESTING EYES CLOSED AFTER FAMILY MEETING. LEFT UNDISURBED AT THIS TIME
--- NOTE | 2021-03-30 16:00 | NUR ---
PT GIVEN POTASSIUM TABS C/O FEELING LIKE THEY ARE STUCK POINTS TO EPIGASTRIC AREA. ENCOURAGED PT TO DRINK SOME WATER, EAT A LITTLE JELLO OR SOMETHING TO PUSH IT DOWN. PT CONTINUES TO FEEL UNCOMFORTABLE, UNBABLE TO SWALLOW COUMADIN AT THIS TIME.
--- NOTE | 2021-03-30 18:29 | NUR ---
PT LYING IN BED STARING BLANKLY AT WALL. PT GRUMPY. EVEN WHEN PT HAS NOT HAD ANY ICE CHIPS OR WATER FOR A WHILE, ORAL TEMP HAS BEEN VERY LOW. PT'S DINNER TRAY IS STILL SITTING UNTOUCHED BY THIER BED. PT HAS BEEN ENCOURAGED TO TRY TO EAT IT. PT HAS SAID "MAYBE LATER". PT DECLINED TO TRY TO USE THE COMMODE.
--- NOTE | 2021-03-30 19:54 | NUR ---
RECEIVED REPORT FROM DAY SHIFT RN. PATIENT IS UP TO RESTROOM. NO NEEDS NOTED. CALL LIGHT IN REACH.
--- NOTE | 2021-03-30 19:59 | NUR ---
RECEIVED REPORT FROM DAY SHIFT RN. PATIENT IS RESTING IN BED WITH EYES CLOSED, RR 17. CALL LIGHT IN REACH.
--- NOTE | 2021-03-30 20:15 | NUR ---
BED ALARM SOUNDING. PT REPORTS SHE NEEDS TO USE BSC. 1PA WITH FWW TO BSC, PT NOT ABLE TO VOID. RUIZ CARE DONE AND CLEAN BRIEF PROVIDED. BACK TO BED. AXEL WELL. WARM BLANKETS PROVIDED. NO FURTHER NEEDS. BED ALARM FOR SAFETY. CALL LIGHT IN REACH.
--- NOTE | 2021-03-30 21:30 | NUR ---
PATIENT UP TP BSC A 1PA W/FWW. PATIENT UNABLE TO VOID. PATIENT IS BACK IN BED RESTING. BLADDER SCAN COMPLETED FOR 332ML. SCHEDULED MEDICATIONS GIVEN PER ORDER. PATIENT DENIES ANY PAIN OR NAUSEA. IV SL IN RIGHT FOOT AND FLUSHES WELL. PATIENT PROVIDED WITH FRESH ICE CHIPS. CALL LIGHT IN REACH. BED ALARM ON FOR SAFETY.
--- NOTE | 2021-03-30 22:08 | NUR ---
PATIENT UP TO BSC. PATIENT VOIDED A SCANT AMOUNT. SMALL BM NOTED. PATIENT IS BACK IN BED RESTING. PATIENTS CALL LIGHT IN REACH. BED ALARM ON FOR SAFETY.
--- NOTE | 2021-03-30 23:24 | NUR ---
PATIENT REPORTED NAUSEA. PRN NAUSEA MEDICATION GIVEN. NEW IV STARTED. PATIENT DENIES ANY FURTHER NEEDS. CALL LIGHT IN REACH. BED ALARM ON FOR SAFETY.
--- NOTE | 2021-03-31 02:38 | NUR ---
PATIENT ASSISTED TO THE RESTROOM A SBA TO BSC. PATIENT VOIDED A SMALL AMOUNT AND HAD A SMALL BM. PATIENT IS BACK IN BED RESTING. PATIENT DENIES ANY NEEDS. CALL LIGHT IN REACH. BED ALARM ON SAFETY.
--- NOTE | 2021-03-31 04:38 | NUR ---
BED ALARM ALERTED STAFF. PATIENT ASSISTED TO STAND AT THE BEDSIDE. PATIENT SAT ON BSC THEN STOOD UP AND GOT BACK INTO BED. PATIENT STATED "I DIDNT HAVE TO GO". PATIENT PROVIDED FRESH ICE CHIPS. PATIENT DENIES ANY NEEDS. CALL LIGHT IN REACH. BED ALARM ON FOR SAFETY.
--- NOTE | 2021-03-31 05:17 | NUR ---
PATIENT UP TO THE RESTROOM A SBA W/FWW. PATIENT WAS ABLE TO VOID AND HAD SMALL BM. PATIENT IS BACK IN BED RESTING. PATIENT DENIES ANY PAIN OR NAUSEA. CALL LIGHT IN REACH. BED ALARM ON FOR SAFETY.
--- NOTE | 2021-03-31 06:43 | NUR ---
PATIENT REFUSING MORNING MEDICATIONS AT THIS TIME. PATIENT DENIES ANY NEEDS. CALL LIGHT IN REACH. BED ALARM ON FOR SAFETY.
--- NOTE | 2021-03-31 07:17 | NUR ---
this rn rn received report from vinicius mccoy. pt appears to be resting and has pushed all but a few blankets off of her this am.
--- NOTE | 2021-03-31 08:59 | NUR ---
THIS RN IN PTS ROOM TO GIVE PT HER MORNING MEDS. PT WILLING TO TAKE THEM BUT DID GET NAUSEOUS DESPITE GIVING ZOFRAN- PT DID HAVE A SOME EMESIS BUT MINIMAL AMOUNT. PT DENIES PAIN THIS AM AND IS ASKING ABOUT THE WEATHER THIS AM. PT STATES NO FURTHER NEEDS AT THIS TIME.
--- NOTE | 2021-03-31 09:20 | NUR ---
this rn to give pt compazine due to pt still vomiting. it appears that pt vomited up 1 white pill but unsure what which pill. pt still having a bloody nose- did cough/voimit up some mucous/vomit/blood mixutre that would measure to 1 tablespoon in size. pt states that she doesn't know what else she needs but appears that dry heaving has stopped
--- NOTE | 2021-03-31 10:15 | NUR ---
this rn in pts room to check on pts nausea. pt had a pile of tissues by her bedside that all had blood on them- pt having bloody nose. this rn folded up a tissue and placed in pts nose - this rn had already attempted pressure an hour ago assuming nose bleed had stopped pt able to take bites of pudding in order to take potassium- pt did not get nauseous after eating pudding but did dry heave after taking potassium with no noted emesis.
--- NOTE | 2021-03-31 10:40 | NUR ---
this rn in to recheck pt. pt states that her stomach is painful, this rn thinks this could be from potassium pills. tissue still in place in her right nostril and appears to still be bleeding due to blood saturating further down the tissue
--- NOTE | 2021-03-31 11:00 | NUR ---
Daughters arrived in the room, assisted to call Rasheeda Paredes at [facility] to assist with financial eval for medicaid. Left while family completed assessment.
--- NOTE | 2021-03-31 11:25 | NUR ---
this rn in pts room to place nasal clamp on pts nose due to continuation of tissue saturation. this rn did update md in [facility]
--- NOTE | 2021-03-31 11:45 | NUR ---
this rn in to recheck pts clamp. tissue is saturated and clamp in place/ this rn received reprot that pt was reportin batsheva zuñiga pain. this rn to give pt scheduled zofran pt appears to be resting comfortably at this time.
--- NOTE | 2021-03-31 12:30 | NUR ---
LANDON MURO REQUESTED I NOT VISIT PT AT THIS TIME. AM HAS BEEN RATHER DIFFICULT AND WOULD LIKE PT TO REST FOR THE TIME BEING. WILL FOLLOW
--- NOTE | 2021-03-31 13:46 | NUR ---
NUTRITION CONSULT RECEIVED FOR POOR APPETITE. LANDON MURO SAID PATIENT'S DAUGHTERS ARE GONE NOW BUT THEY MAY OR MAY NOT BE BACK LATER. PATIENT HAD A ROUGH MORNING WITH A NOSE BLEED, NAUSEA AND VOMITING. JINA RECOMMENDED I CHECK BACK LATER OR TOMORROW WHEN DAUGHTERS ARE HERE THEY WILL LIKELY PROVIDE MORE INPUT THAT THE PATIENT.
--- NOTE | 2021-03-31 14:03 | NUR ---
THIS RN DISCUSSED WITH PHYSICAN ABOUT PTS NOSE BLEED AND VOMITING EVERYTIME SHE TAKES HER PILLS. MD GAVE RN VERBAL ORDER FOR USE OF RHINO ROCKET
--- NOTE | 2021-03-31 14:40 | NUR ---
THIS RN PLACED RHINO ROCKET IN PTS RIGHT NOSTRIL. PT TOLERATED OKAY. THIS RN INSTRUCTED PT TO LEAVE IT IN NOSE FOR 24-72HRS PER MANUFACTUERS DIRECTIONS. THIS RN INSTILLED 3ML OF AIR INTO HUB BALLON.
--- NOTE | 2021-03-31 15:00 | NUR ---
Returned to room. Pt not feeling well. Pt has nose bleed and has nausea all day. Daughter's have gone home. Spoke with daughters and they are now considering taking patient home. Would like me to assist pt to update her POLST and discuss hospice with her.
--- NOTE | 2021-03-31 15:00 | NUR ---
THIS RN IN PTS ROOM STILL TO GIVE PT COMPAZINE FOR VOIMITING. THIS RN NOTED THAT PT HAD ABOUT 50ML OF VOMITING OVER THE COURSE OF 30 MINS OF CACHORRO RED BLOOD. MD IS AWARE OF VOMITING, VERBAL OKAYED FREDRICK BRAVO
--- NOTE | 2021-03-31 15:20 | NUR ---
THIS RN STILL IN ROOM- BLADDER SCANNED PT FOR 176ML. PER STANDING ORDER NOT ABLE TO STAIGHT CATH YET.
--- NOTE | 2021-03-31 16:30 | NUR ---
Spoke with Jennifer and updated to concerns of her daughters. Asked if she would accept Hospice and pt states she would. She does not want to leave her home. Updated daughters on attempting to hire cg. We again discussed if pt wants to cont. to return to the hospital and she states she does not. She does not want CPR, Intubation, or a feeding tube. I asked pt what she feels her needs are and she wants to lighten the load on her daughters. She states she wants them to be able to go home. We discussed if they are able to find a cg, they will be able to go home and return to visit as daughters instead of cg. Pt denies needs for DME. Discussed Hospice will provide. Hospice has closed, so I will contact them in the am. POLST form completed and pt signed. Form given to Dr. Shaw to be signed and faxed to [place] [facility].
--- NOTE | 2021-03-31 17:31 | NUR ---
Daughters returned to hospital and update given. They are interviewing a delivery route driver tomorrow am.
--- NOTE | 2021-03-31 18:40 | NUR ---
THIS RN DISCUSSED WITH MD ABOUT PTS NO URINE OUTPUT AND BLADDER SCAN. MD AWARE. CHANGE OF CODE STATUS UPDATED.
--- NOTE | 2021-03-31 19:49 | NUR ---
BEDSIDE REPORT RECEIVED FROM LANDON MURO. pt AWAKE RESTING IN BED. STATES SHE NEEDS TO GO TO BATHROOM. C/O DIZZINESS WITH STANDING. REQUIRING INSTRUCTION WITH WALKER USE. UP TO BSC. WHEN ASKED IF pt NEEDS TO VOID OR HAVE BM pt WITH BLANK STARE "I DIDN'T HAVE TO GO". LANDON MURO STATES pt CONFUSION HAS BEEN INCREASING THIS SHIFT. NOTIFIED.
--- NOTE | 2021-03-31 22:02 | NUR ---
pt DROWSY, AWAKE RN ENTERS ROOM. VSS. DENIES TOILETING NEEDS. PRN SLEEP MEDICATION ADMINISTERED, pt NAUSEOUS WITH ADMINISTRATION, BUT NOT COMMUNICATING WELL. STATES "I'M NOT SURE, BUT AFTER THAT PILL I MIGHT BE". PRN NAUSEA MEDICATION ADMINSTERED. IV SITE WITH BRISK BLOOD RETURN. IV ANTIBIOTIC NOW INFUSING. ASSESSMENT COMPLETE. pt IS ORIENTED TO SELF, LOCATION ONLY. REORIENATION TO DATE, PLAN OF CARE PROVIDED. pt DENIES PAIN. REPOSITIONED IN BED WITH MARLYS PELAYO ASSIST. FLOATING WITH PILLOWS UNDER EACH HIP.
--- NOTE | 2021-04-01 00:05 | NUR ---
CHECKED ON pt. RESTING IN BED WITH EYES CLOSED. BREATHING EQUAL AND UNLABORED. LIGHTS OFF IN ROOM. BED ALARM ON. IV ANTIBIOTIC INFUSING ORDERED.
--- NOTE | 2021-04-01 01:20 | NUR ---
pt RESTING IN BED, HAS SHIFTED TO LEFT SIDE SLIGHTLY. BREATHING UNLABORED. RHINOROCKET REMAINS IN NARE. IV ANTIBIOTIC INFUSING WNL. LIGHTS OFF IN ROOM. BED ALARM ON.
--- NOTE | 2021-04-01 04:28 | NUR ---
IV ANTIBIOTIC COMPLETE. RN IN ROOM TO SL IV SITE. pt SLEEPING, AWAKENS TO VOICE. 1PA TO BSC pt STATES NEED TO USE RESTROOM. LANDON ELLINGTON IN ROOM TO ASSIST. pt UNABLE TO VOID, SMEAR OF LOOSE STOOL. BACK IN BED, BLADDER SCAN FOR >464 MLS. MULTIPLE ATTEMPTS AT STRAIGHT CATHTER BY LEE ELLINGTON, THIS RN, AND MANAGER PROPERTY RN. MANAGER PROPERTY PLACES ADAMS WNL. LEFT IN PLACE AT THIS TIME TO DRAIN. 450 MLS CONCENTRATED URINE WITH IMMEDIATE RETURN. CONTINUES TO DRAIN SLOWLY. pt REPOSITIONED IN BED. ASSESSMENT COMPLETE. pt DROWSY, VSS. CALL LIGHT IN REACH. BED ALARM ON.
--- NOTE | 2021-04-01 05:32 | NUR ---
LANDON ELLINGTON DISCUSSED ADAMS CATHETER PLACEMENT WITH MD, VERBAL ORDER TO KEEP IN PLACE DUE TO RETENTION.
--- NOTE | 2021-04-01 05:50 | NUR ---
CREAM CHEESE MAKER OUT OF ROOM. SCHEDULED MEDICATIONS ADMINISTERED. pt RESTING IN BED. IV ANTIBIOTIC INFUSING WNL, IV SITE FLUSHED WNL. CALL LIGHT IN REACH. BED ALARM ON. ADAMS DRAINING.
--- NOTE | 2021-04-01 06:35 | NUR ---
MD NOTIFIED OF CRITICAL LAB VALUE VIA TELEPHONE, NO NEW ORDERS.
--- NOTE | 2021-04-01 08:45 | NUR ---
REPORT RECEIVED FROM NIGHT RN AND PT. CARE RESUMED. PT IS DROWSY BUT EASILY AWAKENS. ORIENTED TO ALL BUT DATE. FLAT AFFECT AND SLOW TO RESPOND. SHE DENIES PAIN. IV SITE IS BLEEDING AND PAINFUL. IV REMOVED WITH CATH INTACT. DISCUSSED POC AND MEDS. PT. LEFT RESTING WITH BED ALARM ON.
--- NOTE | 2021-04-01 09:37 | NUR ---
Was able to reach [facility]osp[facility] this am, after speaking with Jennifer last night. They are looking at next Mon for next available admit time. Faxed Face sheet, POLST form, Chart notes, H&P, and ER note, with Hospice Consult order.
--- NOTE | 2021-04-01 10:30 | NUR ---
BED ALARM SOUNDING. PT. FOUND SITTING UP AND COULD NOT STATE WHERE SHE WAS GOING. ASSISTED WITH REPOSITIONING. PT. REPORTS RIGHT ABDOMINAL PAIN THAT IS WORSE WHEN PALP. ADMIN PRN MORPHINE. DAUGHTERS IN THE ROOM AND UPDATED ON PT.'S MORNING. LEFT RESTING WITH ALARM ON.
--- NOTE | 2021-04-01 12:16 | NUR ---
DAUGHTERS IN RM VISITING WITH PT. PT HONEST ABOUT HOW SHE FELT-JUST "CRUDDY" AND NAUSEA AN ISSUE. PT HAS MADE DECISION TO DC ON HOSPICE. GAVE BLESSING, PT ACKNOWLEDGED. WILL FOLLOW
--- NOTE | 2021-04-01 12:30 | NUR ---
Dr. Shaw in and had lengthy discussion with daughters and Jennifer. Plan is for pt to go home in day or so when coagulation stabiilzes. Daughters have hired a live in and would like hospice. Hospice not available until next week.
--- NOTE | 2021-04-01 14:29 | NUR ---
Patient refused bed bath. Bed bath supplies were placed inside her room in case she changes her mind and her call light is in reach.
--- NOTE | 2021-04-01 14:43 | NUR ---
Patient has refused oredering dinner, drinking some water, and did not drink warm chicken broth that was brought for lunch. Patient said she does not need to go to the restroom either. A new emesis bag was provided near the patient just in case.
--- NOTE | 2021-04-01 15:34 | NUR ---
PER MD ORDER, PACER INTEROGATED AND CALL PENDING FROM REP.
--- NOTE | 2021-04-01 15:37 | NUR ---
HOSPICE IS GOING TO BE CONSULTED FOR THIS PATIENT. PATIENT IS A DNR/DNI. NUTRITION REFERRAL IS DEFERRED AT THIS TIME.
--- NOTE | 2021-04-01 19:15 | NUR ---
IN ROOM FOR REPORT, PT IS RESTING WITH EYES CLOSED, RR IS EVEN AND NONLABORED CALL LIGHT IS CLOSE.
--- NOTE | 2021-04-01 20:45 | NUR ---
in to get vitals, pt recnetly up to void with bsc with this wholesale representative's help, no further needs at this time
--- NOTE | 2021-04-01 21:24 | NUR ---
PT EASILY WOKE WHEN THIS RN ENTERED THE ROOM BUT FELL BACK ASLEEP DURING ASSESSMENT. PT ANSWERED QUESTIONS WITH VERY SHORT ANSWERS. PT DENIES PAIN OR NAUSEA AT THIS TIME. SHE DENIES NUMBESS AND TINGLING. PT DENIES NEEDING TO BE REPOSITIONED. CALL LIGHT IS CLOSE AND BED ALARM IS ON. PT DENIES NEEDS.
--- NOTE | 2021-04-01 22:30 | NUR ---
NOTIFIED DR OLMOS OF PT'S URINE OUTPUT OF 75MLS. NO NEW ORDERS RECEIVED.
--- NOTE | 2021-04-01 23:13 | NUR ---
PT IS RESTING WITH EYES CLOSED, RR IS EVEN AND NONLABORED. CALL LIGHT IS CLOSE AND BED ALARM IS ON.
--- NOTE | 2021-04-02 01:01 | NUR ---
PT IS RESTING WITH EYES CLOSED, RR IS EVEN AND NONLABORED. CALL LIGHT IS CLOSE AND BED ALARM IS ON.
--- NOTE | 2021-04-02 02:35 | NUR ---
PT IS RESTING WITH EYES CLOSED, RR IS EVEN AND NONLABORED. CALL LIGHT IS CLOSE BED ALARM IS ON.
--- NOTE | 2021-04-02 04:50 | NUR ---
PT IS RESTING WITH EYES CLOSED, RR IS EVEN AND NONLABORED. CALL LIGHT IS CLOSE.
--- NOTE | 2021-04-02 06:41 | NUR ---
IN ROOM TO ADMINISTER THYROID MED, PT IS MORE ALERT THIS AM. SHE PULLED THE RHINOROCKET OUT AND IT WAS SITTING ON BEDSIDE TABLE. TRIED REMOVING THE TAPE FROM HER R CHEEK BUT ONLY GOT HALF OFF, WILL TRY SOAKING WITH WASHCLOTH BEFORE REMOVING THE REST. PT HAS FRESH ICEWATER AND DENIES FURTHER NEEDS. UO STILL LOWER END THIS AM. CALL LIGHT IS CLOSE.
--- NOTE | 2021-04-02 07:45 | NUR ---
REPORT RECEIVED FROM NIGHT RN AND PT. CARE RESUMED. PT. IS DROWSY BUT AWAKENS EASILY ORIENTED TO ALL BUT DATE. FLAT AFFECT AND SLOW TO RESPOND. SHE DENIES PAIN. FENTANYL PATCH IN PLACE ON LEFT SHOULDER. TAPE REMOVED FROM FACE. DISCUSSED MEDS AND SAFETY. PT. ENCOURAGED TO DRINK FLUIDS AND GOWN CHANGED. LEFT RESTING WITH ALARM ON.
--- NOTE | 2021-04-02 10:56 | NUR ---
. MADE AWARE OF LOW URINE OUTPUT AND INTAKE. NO NEW ORDERS.
--- NOTE | 2021-04-02 13:00 | NUR ---
Spoke with daughters and they are getting the house set up for pt to come home. Hospice called and plan on moving admit up to Monday. Discussed with daughter and I will schedule transport home, this may be today or tomorrow depending on their schedule.
--- NOTE | 2021-04-02 13:30 | NUR ---
Spoke with [facility] van and they full today, but could transport tomorrow at 10:00. Will notify all.
--- NOTE | 2021-04-02 13:58 | NUR ---
PT. IS RESTING IN BED. SHE DENIES PAIN OR NAUSEA. REFUSES WATER OR TEA. BROUGHT FRESH ICE CHIPS. LEFT RESTING WITH BED ALARM ON.
--- NOTE | 2021-04-02 14:00 | NUR ---
Spoke with daughter and provided education for catheter care and pain medication. Daughter will go to [facility] and get a loaner for transport home and until hospice get in and will supply equipment. Daughter will bring to hospital before 10 am tomorrow. Discussed comfort care and daughters feel they will be fine as they have been caring for mom for the last month.
--- NOTE | 2021-04-02 16:00 | NUR ---
Received a call from Rand at hospice and then was transfered to Martha NAVARRETE. She states if we can provide a comfort kit, she will admit pt to hospice Monday morning. She does not have access to meds over the weekend. UPdated pt will dc tomorrow at 10 and I will talk with Dr. Shaw. Martha asks I notify the family. Spoke with Dr. Shaw and she will order a comfort kit for dc. Pt has a fentanyl patch in place and it will need to be changed on Monday. She will add this to the dc meds also. Called daughters and updated and they will expect Martha mid morning. Jennifer updated she will dc to home tomorrow.
[2021-04-02] MEDS ORDERED: MORPHINE S10 MG/5 ML PO (17:49)
[2021-04-02] MEDS ORDERED: FENTANYL1 EAC4 TD (17:52)
[2021-04-02] MEDS ORDERED: ONDANSETRON ODT4 MG SL (17:53)
[2021-04-02] MEDS ORDERED: HALOPERIDOL2 MG/1 ML PO (17:56)
[2021-04-02] MEDS ORDERED: LORAZEPAM INT2 MG/ML PO (17:58)
--- NOTE | 2021-04-02 19:40 | NUR ---
SHIFT REPORT RECEIVED FROM LANDON LAMAS. PATIENT DENIES ANY PAIN OR NAUSEA AT THIS TIME AND HAS NO CURRENT CARE NEEDS. CALL LIGHT IS IN REACH.
--- NOTE | 2021-04-02 21:15 | NUR ---
BED ALARM SOUNDED,ASSISTED PT TO GET HER FEET BACK IN BED. SHE WAS SITTING AT THE EDGE. ICE CHIPS PROVIDED AND PT DENIES FURTHER NEEDS. CALL LIGHT IS CLOSE.
--- NOTE | 2021-04-02 21:30 | NUR ---
IN TO GET VITALS, PT HAD 75MLs OUTPUT FROM [facility], CATH CARE AT THIS TIME, PT HAD ICE CHIP AND WATER AT BEDSIDE, NO FURTHER NEEDS AT THIS TIME
--- NOTE | 2021-04-02 21:55 | NUR ---
PATIENT DENIES PAIN OR NAUSEA. PATIENT REQUESTED MELATONIN FOR SLEEP AND THIS WAS GIVEN. PATIENT HAS FRESH ICE CHIPS SHE REQUESTED AT BEDSIDE. PATIENT'S PM ASSESSMENT COMPLETE AND CALL LIGHT IS IN REACH. PATIENT HAS NO OTHER CARE NEEDS AT THIS TIME. LIGHTS TURNED DOWN AT PATIENT'S REQUEST.
--- NOTE | 2021-04-02 23:58 | NUR ---
PATIENT SITTING UP IN BED EATING SOME ICE. PATIENT DENIES THE NEED FOR ANY CARES AT THIS TIME. CALL LIGHT IS IN REACH.
--- NOTE | 2021-04-03 01:24 | NUR ---
PATIENT'S BED ALARM WENT OFF AND THIS RN WENT TO CHECK ON THE PATIENT. PATIENT SAYS SHE IS,"JUST SETTING UP FOR A MINUTE". PATIENT DENIES ANY PAIN OR NAUSEA AND HAS NO CURRENT CARE NEEDS. CALL LIGHT IS IN REACH AND BED ALARM RESET.
--- NOTE | 2021-04-03 01:25 | NUR ---
CHECKED ON PATIENT AND HE HAS TURNED BACK TO HIS BACK IN SEMI-FOWLERS POSITION AND IS RESTING QUIETLY, HE STIRRED WHEN THIS RN LOOKED IN AND INFORMED ME,"i'M DOING OK". CALL LIGHT IS IN REACH AND NO CARE NEEDS AT THIS TIME.
--- NOTE | 2021-04-03 02:54 | NUR ---
PATIENT RESTING IN BED QUIETLY IN LOW FOWLERS POSITION, RESPIRATIONS ARE REGULAR AND EVEN, EYES ARE CLOSED, AND CALL LIGHT IS IN REACH. PATIENT HAS NO CARE NEEDS AT THIS TIME.
--- NOTE | 2021-04-03 05:08 | NUR ---
PATIENT'S ICE CHIPS REFILLED. PATIENT DENIES ANY PAIN. PATIENT NAUSEATED WANTING TO SIT ON THE BEDSIDE FOR A FEW MINUTES AND BED ALARM IS ON. VS STABLE. AM ASSESSMENT ESSENTIALLY THE SAME PM ASSESSMENT. PATIENT GIVEN NEW ICE TEA AND 2 PACKETS SUGAR SHE REQUESTED. 4MG SL ZOFRAN GIVEN FOR NAUSEA. PATIENT WILL CALL IF SHE NEEDS ANYTHING ELSE. CALL LIGHT IS IN REACH.
--- NOTE | 2021-04-03 07:14 | NUR ---
SHIFT REPORT GIVEN TO LANDON RODRIGEZ. PATIENT RESTING QUIETLY IN BED AND NAUSEA IS RESOLVED. PATIENT HAS NO CURRENT CARE NEEDS. CALL LIGHT IN REACH AND BED ALARM ON.
--- NOTE | 2021-04-03 07:48 | NUR ---
PT SITTING UP IN BED EATING ICE CHIPS. UPDATED WHITE BOARD. PT REFUSED TO HAVE BLINDS OPENED. PT REFUSED CHAIR. PT ACCEPTED WARM CLOTH FOR FACE. CALL LIGHT WITHIN REACH. NO FURTHER NEEDS AT THIS TIME. TOOK BREAKFAST ORDER.
[2021-04-03] MEDS ORDERED: MORPHINE S10 MG/5 ML PO (09:21)
--- NOTE | 2021-04-03 09:30 | NUR ---
Scheduled medications administered and assessment complete. Pt resting in bed with daughters at bedside, states no needs at this time, flat affect but answers questions appropriately. Pt becomes nauseated with swallowing medication, no emesis at this time, continuing to monitor. Discharge teaching provided to daughters and patient who verbalize understanding, all questions answered. Prescriptions and Rx instructions given. Patient dressed, vitals complete, pt has no IV. No further needs at this time.
== END 2021-04-03 09:58 | disposition hospice, home (50) | DRG 445 ==
LOC: ED 13:14 → MS 18:51 → CCU 18:51 → MS 03-28 09:50
PROVIDERS: ADMIT Internal Medicine; ATTEND Internal Medicine
DX: K80.00 Calculus of gallbladder with acute cholecystitis without obstruction (principal); I50.22 Chronic systolic (congestive) heart failure; N17.9 Acute kidney failure, unspecified; K82.1 Hydrops of gallbladder; Z20.822 Contact with and (suspected) exposure to COVID-19; Z66 Do not resuscitate; I95.9 Hypotension, unspecified; I51.3 Intracardiac thrombosis, not elsewhere classified; E80.6 Other disorders of bilirubin metabolism; I48.91 Unspecified atrial fibrillation; J44.9 Chronic obstructive pulmonary disease, unspecified; G89.4 Chronic pain syndrome; E03.9 Hypothyroidism, unspecified; F39 Unspecified mood [affective] disorder; I25.2 Old myocardial infarction; Z95.1 Presence of aortocoronary bypass graft; Z95.810 Presence of automatic (implantable) cardiac defibrillator; Z90.710 Acquired absence of both cervix and uterus; Z98.890 Other specified postprocedural states; Z95.5 Presence of coronary angioplasty implant and graft; Z79.899 Other long term (current) drug therapy; Z79.01 Long term (current) use of anticoagulants
CPT/HCPCS: 51701; 71045; 74176; 76705; 80048; 80053; 80162; 81001; 83690; 83735; 83880; 84484; 85025; 85610; 93005; 93010; 93306; 94667; 94668; 94760; 97116; 97162; 97165; 97530; 99285-25; A9270; C9803; G0480; J0780; J1160; J1650; J1940; J2405; J2543; J2765; J3430; J3475; J7030; J7121; P9047; U0003